=== PATIENT | female | born 1950 | race Caucasian/White ===

== ENCOUNTER 2018-08-08 10:04 | Outpatient (REF) | payer MEDICARE, SELFPAY ==
[2018-08-08 13:54] LABS: ALT 16 U/L (12-78); AST 16 U/L (15-37); Albumin 3.5 g/dL (3.4-5.0); Alkaline Phosphatase 76 U/L (46-116); Anion Gap 7.5 mmol/L (3-11); BUN 20 mg/dL (7-18); Bilirubin, Total 0.4 mg/dL (0.2-1.0); CO2 30.5 mmol/L (21.0-32.0); CREATININE 1.08 mg/dL (0.55-1.02); Calcium 8.9 mg/dL (8.5-10.1); Chloride 104 mmol/L (98-107); Estimated GFR 50.45 (mL/min/1.73m2); Glucose 92 mg/dL (70-100); Potassium 4.4 mmol/L (3.5-5.1); Sodium 142 mmol/L (136-145); Total Protein 7.3 g/dL (6.4-8.2)
== END 2018-08-08 10:24 ==
LOC: NCHCN 10:04
PROVIDERS: PCP Nurse Practitioner Family; Visit Provider Nurse Practitioner Family
DX: R94.4 Abnormal results of kidney function studies (principal)
CPT/HCPCS: 80053

== ENCOUNTER 2019-02-15 08:18 | Outpatient (REF) | payer MEDICARE, SELFPAY ==
[2019-02-15 13:22] LABS: ALT 28 U/L (12-78); AST 19 U/L (15-37); Albumin 3.4 g/dL (3.4-5.0); Alkaline Phosphatase 85 U/L (46-116); Anion Gap 9.3 mmol/L (3-11); BUN 24 mg/dL (7-18); Bilirubin, Total 0.3 mg/dL (0.2-1.0); CO2 26.7 mmol/L (21.0-32.0); CREATININE 1.13 mg/dL (0.55-1.02); Calcium 8.8 mg/dL (8.5-10.1); Chloride 105 mmol/L (98-107); Cholesterol 219 mg/dL (50-200); Estimated GFR 47.88 (mL/min/1.73m2); Glucose 96 mg/dL (70-100); HDL Cholesterol 41 mg/dL (40-60); LDL CHOLESTEROL 151 mg/dL (<100); Potassium 4.6 mmol/L (3.5-5.1); Sodium 141 mmol/L (136-145); Total Protein 7.5 g/dL (6.4-8.2); Triglyceride 124 mg/dL (30-150)
== END 2019-02-15 08:38 ==
LOC: NCHCN 08:18
PROVIDERS: PCP Nurse Practitioner Family; Visit Provider Nurse Practitioner Family
DX: E78.5 Hyperlipidemia, unspecified (principal); I10 Essential (primary) hypertension
CPT/HCPCS: 80053; 80061; 83721

== ENCOUNTER 2019-02-22 09:27 | Outpatient (REF) | payer MEDICARE, SELFPAY ==
[2019-02-22 13:16] LABS: Abs Immature Grans 0.01 k/cumm (0.0-0.09); Absolute Basophil Count 0.02 k/cumm (0.0-0.2); Absolute Eosinophil Count 0.06 k/cumm (0.0-0.7); Absolute Lymphocyte Count 1.76 k/cumm (1.2-3.4); Absolute Monocyte Count 0.36 k/cumm (0.11-0.7); Absolute Neutrophil Count 4.06 k/cumm (1.2-6.7); Basophils % 0.3; HGB 13.3 g/dL (12.0-15.5); Immature Grans % 0.2; Lymphocytes % 28.1; Mean Corp. HGB Concentration 33.3 g/dL (32.0-36.0); Mean Corpuscular Hemoglobin 30.3 pg (27.0-33.0); Mean Corpuscular Volume 91.1 fL (80-95); Mean Platelet Volume 9.8 fL (8.0-11.0); Monocytes % 5.7; Neutrophils % 64.7; Platelet Count 324 x1000/uL (130-400); RBC 4.39 m/cumm (4.00-5.20); RBC Distribution Width 13.8 % (11.7-14.6); White Blood Cell Count 6.27 k/cumm (4.4-10.8)
[2019-02-22 13:34] LABS: Bilirubin Negative (Negative); Blood Trace-lysed (Negative); Clarity Cloudy; Glucose Negative (Negative); Ketones Negative (Negative); Leukocyte Esterase Small (Negative); Nitrite Positive (Negative); Specific Gravity 1.025 (1.005-1.025); Urobilinogen 0.2 EU/dL (Up TO 0.2); pH 5.5 (5-8)
[2019-02-22 13:39] LABS: ALT 31 U/L (12-78); AST 23 U/L (15-37); Albumin 3.7 g/dL (3.4-5.0); Alkaline Phosphatase 83 U/L (46-116); BUN 29 mg/dL (7-18); Bilirubin, Total 0.3 mg/dL (0.2-1.0); CREATININE 1.12 mg/dL (0.55-1.02); Calcium 9.1 mg/dL (8.5-10.1); Chloride 102 mmol/L (98-107); Estimated GFR 48.38 (mL/min/1.73m2); Glucose 107 mg/dL (70-100); Potassium 4.6 mmol/L (3.5-5.1); Sodium 139 mmol/L (136-145); TSH (W/Ref FT4) 1.73 uIU/mL (0.358-3.74)
[2019-02-22 13:44] LABS: COMMENT (LAB VIEW ONLY) 195.78 mg/dL; Microalb ug/mg Crea 5.9 ug/mg Cr
[2019-02-22 13:59] LABS: Bacteria Moderate HPF (Negative); C & S Indicated? Yes; Casts Negative LPF (Negative); Crystals Moderate Amorphous HPF (Negative); Epithelial Cells Rare HPF (Negative); Mucus Negative (Negative); Other Cells Few Renal (Negative); RBC Negative (0-2)
== END 2019-02-22 09:47 ==
LOC: NCHCN 09:27
PROVIDERS: PCP Nurse Practitioner Family; Visit Provider Nurse Practitioner Family
DX: R53.83 Other fatigue (principal); R94.4 Abnormal results of kidney function studies; I10 Essential (primary) hypertension; Z80.3 Family history of malignant neoplasm of breast; F32.9 Major depressive disorder, single episode, unspecified
CPT/HCPCS: 80053; 87077; 81003; 81015; 82043; 82570; 83735; 84443; 85025; 87086; 87186

== ENCOUNTER 2019-02-22 09:54 | Outpatient (CLI) | payer MEDICARE, SELFPAY ==
--- NOTE | 2019-02-22 10:01 | DI.RAD_ITS ---
SYMPTOM/DIAGNOSIS: ABNL WT LOSS, R63.4, SOB, MALAISE PA AND LATERAL CHEST: No priors. The heart is normal in size. The lungs are clear. The mediastinal structures and pleura appear intact. CONCLUSION: Normal chest.
== END 2019-02-22 10:14 ==
PROVIDERS: PCP Nurse Practitioner Family; Visit Provider Nurse Practitioner Family
DX: R63.4 Abnormal weight loss (principal); R06.02 Shortness of breath; R53.81 Other malaise
CPT/HCPCS: 71046

== ENCOUNTER 2019-03-01 19:48 | Outpatient (REF) | payer MEDICARE, SELFPAY ==
[2019-03-01 20:56] LABS: Bilirubin Negative (Negative); Blood Negative (Negative); Clarity Clear; Glucose Negative (Negative); Ketones Negative (Negative); Leukocyte Esterase Trace (Negative); Nitrite Negative (Negative); Urobilinogen 0.2 EU/dL (Up TO 0.2)
[2019-03-01 21:53] LABS: Bacteria Negative HPF (Negative); C & S Indicated? Yes; Casts Negative LPF (Negative); Crystals Negative HPF (Negative); Epithelial Cells Negative HPF (Negative); Mucus Negative (Negative); Other Cells Negative (Negative); RBC Negative (0-2)
== END 2019-03-01 20:08 ==
LOC: NCHCN 19:48
PROVIDERS: PCP Nurse Practitioner Family; Visit Provider Nurse Practitioner Family
DX: R35.0 Frequency of micturition (principal)
CPT/HCPCS: 81003; 81015; 87086; 87186

== ENCOUNTER 2019-03-09 13:43 | Outpatient (REF) | payer MEDICARE, SELFPAY ==
[2019-03-09 19:03] LABS: Anion Gap 8.1 mmol/L (3-11); BUN 14 mg/dL (7-18); CO2 27.9 mmol/L (21.0-32.0); CREATININE 1.14 mg/dL (0.55-1.02); Calcium 9.2 mg/dL (8.5-10.1); Chloride 103 mmol/L (98-107); Estimated GFR 47.26 (mL/min/1.73m2); Glucose 92 mg/dL (70-100); Potassium 4.8 mmol/L (3.5-5.1); Sodium 139 mmol/L (136-145)
== END 2019-03-09 14:03 ==
LOC: NCHCN 13:43
PROVIDERS: PCP Nurse Practitioner Family; Visit Provider Nurse Practitioner Family
DX: R94.4 Abnormal results of kidney function studies (principal)
CPT/HCPCS: 80048

== ENCOUNTER 2019-03-14 00:14 | Outpatient (CLI) | payer MEDICARE, SELFPAY ==
--- NOTE | 2019-03-14 10:30 | MERGE_ITS ---
*[facility]* *[facility]* [address] [place] [address] Date of study: 03/14/2019 Transthoracic Echocardiography M-mode, complete 2D, complete spectral Doppler, and color Doppler *STUDY CONCLUSIONS* Summary: 1. Left ventricle: The cavity size was normal. Systolic function was hyperdynamic. The estimated ejection fraction was 65-70%. Diastolic parameters were normal for age. There was no evidence of elevated ventricular filling pressure by Doppler parameters. 2. Mitral valve: There was moderate regurgitation. 3. Right ventricle: The cavity size was normal. Wall thickness was normal. Systolic function was normal. 4. Atrial septum: No defect or patent foramen ovale was identified. 5. Pulmonary arteries: Pulmonary systolic pressure was in the range of 25mm Hg to 35mm Hg. 6. Inferior vena cava: The vessel was patent and normal in size. The respirophasic diameter changes were in the normal range (greater than or equal to 50%), consistent with normal central venous pressure. *PATIENT PRESENTATION* Height: 152.4cm ((60in) ) S/D Pressure: 139 / 70 Weight: 63kg ((138.7lb) ) BSA: 1.65m^2 Test start time: 10:40 AM. Test stop time: 11:40 AM. PERFORMING Unknown PERFORMING [facility] MRI TECH RT Tee (R)(CT), RUST ORDERING Ramsey Garrett REFERRING Ramsey Garrett *PROCEDURE DATA* Procedure information: The patient was identified by two identifiers. This study was interpreted by [facility]. Pertinent images and digital data are archived for permanent storage and are available for subsequent review. No prior study was available for comparison. Study status: Routine. Transthoracic echocardiography. M-mode, complete 2D, complete spectral Doppler, and color Doppler. A Transthoracic Echocardiogram was performed. Scanning was performed from the parasternal, apical, subcostal, and suprasternal notch acoustic windows. Images were obtained using an [id number] cardiac ultrasound machine. Image quality was adequate. Study completion: The patient tolerated the procedure well. History: PMH: TRICIA R06.02. *CARDIAC ANATOMY* Left ventricle: The cavity size was normal. Systolic function was hyperdynamic. The estimated ejection fraction was 65-70%. The tissue Doppler parameters were abnormal. Diastolic parameters were normal for age. There was no evidence of elevated ventricular filling pressure by Doppler parameters. Aortic valve: Trileaflet. Doppler: There was no stenosis. There was no regurgitation. VTI ratio of LVOT to aortic valve: 0.81. Valve area (VTI): 2cm^2. Indexed valve area (VTI): 1.2cm^2/m^2. Peak velocity ratio of LVOT to aortic valve: 0.78. Valve area (Vmax): 1.9cm^2. Indexed valve area (Vmax): 1.2cm^2/m^2. Mean velocity ratio of LVOT to aortic valve: 0.69. Valve area (Vmean): 1.7cm^2. Indexed valve area (Vmean): 1cm^2/m^2. Mean gradient (S): 4.4mm Hg. Peak gradient (S): 8.6mm Hg. Aorta: Aortic root: The aortic root was normal in size. Mitral valve: Doppler: There was no evidence for stenosis. There was moderate regurgitation. Valve area by pressure half-time: 4cm^2. Indexed valve area by pressure half-time: 2.4cm^2/m^2. Peak gradient (D): 2.7mm Hg. Left atrium: The atrium was normal in size. Atrial septum: No defect or patent foramen ovale was identified. Right ventricle: The cavity size was normal. Wall thickness was normal. Systolic function was normal. Pulmonic valve: Doppler: There was no evidence for stenosis. There was no significant regurgitation. Peak gradient (S): 2.4mm Hg. Tricuspid valve: Doppler: There was mild regurgitation. Pulmonary artery: Poorly visualized. Pulmonary systolic pressure was in the range of 25mm Hg to 35mm Hg. Right atrium: The atrium was normal in size. Pericardium: There was no pericardial effusion. Systemic veins: Inferior vena cava: Well visualized. The vessel was patent and normal in size. The respirophasic diameter changes were in the normal range (greater than or equal to 50%), consistent with normal central venous pressure. Baseline ECG: Bradycardia. Measurements Left ventricle Value Reference LV ID, ED, PLAX 4.8 cm 3.5 - 6.0 LV ID, ES, PLAX 3.2 cm 2.1 - 4.0 LV PW thickness, ED, PLAX 0.7 cm LV end-diastolic volume, 1-p A2C 60 ml LV ejection fraction, 1-p A2C 59 % LV end-diastolic volume, 1-p A4C 57 ml LV ejection fraction, 1-p A4C 72 % LV e', lateral 0.085 m/sec LV E/e', lateral 10 LV e', medial 0.077 m/sec LV E/e', medial 11 LV e', average 0.081 m/sec LV E/e', average 10 Ventricular septum Value Reference IVS thickness, ED, PLAX 0.7 cm LVOT Value Reference LVOT ID, A-P 1.8 cm LVOT area 2.5 cm^2 LVOT peak velocity, S 1.15 m/sec LVOT mean velocity, S 0.67 m/sec LVOT VTI, S 26.9 cm LVOT peak gradient, S 5.3 mm Hg LVOT mean gradient, S 2.2 mm Hg Stroke volume (SV), LVOT DP 66 ml Stroke index (SV/bsa), LVOT DP 40 ml/m^2 Aortic valve Value Reference Aortic valve peak velocity, S 1.5 m/sec Aortic valve mean velocity, S 0.98 m/sec Aortic valve VTI, S 33.0 cm Aortic mean gradient, S 4.4 mm Hg Aortic peak gradient, S 8.6 mm Hg VTI ratio, LVOT/AV 0.81 Aortic valve area, VTI 2 cm^2 Velocity ratio, peak, LVOT/AV 0.78 Aortic valve area, peak velocity 1.9 cm^2 Velocity ratio, mean, LVOT/AV 0.69 Aortic valve area, mean velocity 1.7 cm^2 Aortic valve area/bsa, mean velocity 1 cm^2/m^2 Aorta Value Reference Aortic root ID, ED 2.7 cm Left atrium Value Reference LA ID, A-P, ES 3.2 cm LA ID/bsa, A-P 1.9 cm/m^2 <=2.2 LA area, ES, A4C 15.5 cm^2 8.8 - 23.4 LA area, ES, A2C 14 cm^2 LA volume/bsa, ES, 1-p A4C 26 ml/m^2 LA volume, ES, 2-p 37 ml LA volume/bsa, ES, 2-p 22 ml/m^2 LA/aortic root ratio 1.17 Mitral valve Value Reference Mitral E-wave peak velocity 0.83 m/sec Mitral A-wave peak velocity 1.01 m/sec Mitral deceleration time 189 ms 150 - 230 Mitral pressure half-time 55 ms Mitral peak gradient, D 2.7 mm Hg Mitral E/A ratio, peak 0.82 Mitral valve area, PHT, DP 4 cm^2 Tricuspid valve Value Reference Tricuspid regurg peak velocity 2.7 m/sec Tricuspid peak RV-RA gradient 28.9 mm Hg Right atrium Value Reference RA area, ES, A4C 13.2 cm^2 8.3 - 19.5 Pulmonic valve Value Reference Pulmonic peak gradient, S 2.4 mm Hg Legend: (L) and (H) marichuy values outside specified reference range. I have personally reviewed the images and have reviewed and edited the reported findings. Electronically signed by Lai Rawls MD 03/14/2019 13:59
== END 2019-03-14 00:34 ==
PROVIDERS: PCP Nurse Practitioner Family; Visit Provider Nurse Practitioner Family
DX: R06.02 Shortness of breath (principal); I34.0 Nonrheumatic mitral (valve) insufficiency; I10 Essential (primary) hypertension; E78.5 Hyperlipidemia, unspecified
CPT/HCPCS: 93306

== ENCOUNTER 2019-04-21 09:30 | Outpatient (REF) | payer MEDICARE, SELFPAY ==
[2019-04-21 19:09] LABS: Anion Gap 10.3 mmol/L (3-11); BUN 13 mg/dL (7-18); CO2 25.7 mmol/L (21.0-32.0); CREATININE 1.15 mg/dL (0.55-1.02); Calcium 9.2 mg/dL (8.5-10.1); Chloride 104 mmol/L (98-107); Estimated GFR 46.79 (mL/min/1.73m2); Glucose 75 mg/dL (70-100); Potassium 4.6 mmol/L (3.5-5.1); Sodium 140 mmol/L (136-145)
== END 2019-04-21 09:50 ==
LOC: NCHCN 09:30
PROVIDERS: PCP Nurse Practitioner Family; Visit Provider Nurse Practitioner Family
DX: R94.4 Abnormal results of kidney function studies (principal)
CPT/HCPCS: 80048

== ENCOUNTER 2019-05-18 00:25 | Outpatient (CLI) | payer MEDICARE, SELFPAY ==
--- NOTE | 2019-05-18 15:15 | DI.MAMMO_ITS ---
SYMPTOM/DIAGNOSIS: FAMILY H/O BREAST CANCER Z80.3 BILATERAL SCREENING MAMMOGRAM: Mammograms were interpreted according to the usual protocol including computer analysis with CAD system, tomosynthesis and C view imaging. Comparison is made with exams from 2012 through 2018. The breasts are composed of scattered fibroglandular densities, breast density category B. There is a question of a small mass vs overlying fibroglandular tissue in the central right breast. Spot compression views and ultrasound are requested for further evaluation. No change is seen in the left breast. No suspicious calcifications in either breast. IMPRESSION: Left breast Category 1, negative. Right breast Category 0. Breast density category B. [facility] ASSESSMENT OF FINDINGS: Incomplete: Needs additional imaging evaluation. Category 0. Patient will receive a letter notifying them of these results. BI-RADS category B. There are scattered areas of fibroglandular density.
--- NOTE | 2019-05-18 16:00 | DI.DEXA_ITS ---
SYMPTOM/DIAGNOSIS: OSTEOPOROSIS M81.0 DEXA SCAN WITH ANURADHA There are no prior comparison exams. The ANURADHA image shows no evidence of compression fractures. The bone mineral density measurements of the lumbar spine correspond to a total T-score of -2.9 consistent with osteoporosis. Bone mineral density measurements of the left hip correspond to a total T-score of -2.0 and femoral neck T-score of -2.5. also consistent with osteoporosis. The right forearm bone mineral density measurements show a T-score in the distal third of -1.6, in the osteopenic range. IMPRESSION: Osteopenia of the right forearm. Osteoporosis of the left hip and lumbar spine.
== END 2019-05-18 00:45 ==
PROVIDERS: PCP Nurse Practitioner Family; Visit Provider Nurse Practitioner Family
DX: M81.0 Age-related osteoporosis without current pathological fracture (principal); M85.831 Other specified disorders of bone density and structure, right forearm; Z12.31 Encounter for screening mammogram for malignant neoplasm of breast; R92.8 Other abnormal and inconclusive findings on diagnostic imaging of breast; Z80.3 Family history of malignant neoplasm of breast
CPT/HCPCS: 77063; 77067; 77080

== ENCOUNTER 2019-05-30 00:53 | Outpatient (CLI) | payer MEDICARE, SELFPAY ==
--- NOTE | 2019-05-30 13:00 | DI.COMBO_ITS ---
SYMPTOMS/DIAGNOSIS: F/U ABNORMAL MAMMO, ? SMALL MASS VERSUS OVERLYING FIBROGLANDULAR TISSUE IN CENTRAL RIGHT BREAST ADDITIONAL VIEWS OF THE RIGHT BREAST AND RIGHT BREAST ULTRASOUND: Additional images are interpreted according to the usual protocol including tomosynthesis and 2D imaging. CC and MLO spot compression views with tomography were performed for a question of mass versus overlying density. No persistent abnormality is seen on the additional views performed. Right breast ultrasound shows an island of dense tissue. No mass or cyst is seen. IMPRESSION: Category 1, negative mammogram. Yearly screening mammography is recommended. [facility] ASSESSMENT OF FINDINGS: Negative. Category 1. Patient will receive a letter notifying them of these results. BI-RADS category B. There are scattered areas of fibroglandular density.
== END 2019-05-30 01:13 ==
PROVIDERS: PCP Nurse Practitioner Family; Visit Provider Nurse Practitioner Family
DX: Z12.31 Encounter for screening mammogram for malignant neoplasm of breast (principal); R92.8 Other abnormal and inconclusive findings on diagnostic imaging of breast; N64.59 Other signs and symptoms in breast
CPT/HCPCS: 76642; 77063; 77067

== ENCOUNTER → 2019-06-06 08:34 | Outpatient (BNVA) | payer MEDICARE, SELFPAY | PROVIDERS: PCP Nurse Practitioner Family; Referring Provider Nurse Practitioner Family; Visit Provider Nurse Practitioner Gerontology | DX: N32.81 Overactive bladder (principal); N39.41 Urge incontinence; I10 Essential (primary) hypertension | CPT/HCPCS: 99204; 99215 ==

== ENCOUNTER 2019-06-16 08:00 | Outpatient (CLI) | payer MEDICARE, SELFPAY ==
--- NOTE | 2019-06-16 11:00 | DI.US_ITS ---
SYMPTOM/DIAGNOSIS: UTI W/O HEMATURIA N39.0 RENAL ULTRASOUND: Routine examination was performed. The right kidney measures 10 cm long. No renal mass, calculus or obstruction is seen. There is normal blood flow to the right kidney. The left kidney measures 9.1 cm long. No renal mass, calculus or obstruction is seen. There is mild prominence of the left renal pelvis. There is normal blood flow to the left kidney. The pre-void urinary bladder volume is 131 cc. Both ureteral jets were visualized. No bladder wall thickening is seen. No intraluminal mass present. Post void urinary bladder volume was less than 10 cc. IMPRESSION: Unremarkable renal ultrasound.
== END 2019-06-16 08:20 ==
PROVIDERS: PCP Nurse Practitioner Family; Visit Provider Internal Medicine Nephrology
DX: N39.0 Urinary tract infection, site not specified (principal)
CPT/HCPCS: 76770

== ENCOUNTER 2020-04-18 10:36 | Outpatient (REF) | payer MEDICARE, SELFPAY ==
[2020-04-18 18:45] LABS: HCT 40.6 % (36.0-46.0); HGB 13.4 g/dL (12.0-15.5); Mean Corpuscular Hemoglobin 30.6 pg (27.0-33.0); Mean Corpuscular Volume 92.7 fL (80-95); Mean Platelet Volume 10.2 fL (8.0-11.0); Platelet Count 266 x1000/uL (130-400); RBC 4.38 m/cumm (4.00-5.20); RBC Distribution Width 13.4 % (11.7-14.6); White Blood Cell Count 6.04 k/cumm (4.4-10.8)
[2020-04-18 19:17] LABS: BUN 23 mg/dL (7-18); CREATININE 1.23 mg/dL (0.55-1.02); Calcium 9.2 mg/dL (8.5-10.1); Calculated LDL 187 mg/dL (<100); Chloride 104 mmol/L (98-107); Cholesterol 263 mg/dL (<200); Estimated GFR 43.17 (mL/min/1.73m2); HDL Cholesterol 56 mg/dL (40-60); Potassium 4.4 mmol/L (3.5-5.1); Sodium 140 mmol/L (136-145); Triglyceride 102 mg/dL (<150)
[2020-04-18 19:26] LABS: Glucose 94 mg/dL (74-106)
[2020-04-18 19:37] LABS: Vitamin D 25 Total 58.8 ng/ml (30-100)
== END 2020-04-18 10:56 ==
LOC: NCHCN 10:36
PROVIDERS: PCP Nurse Practitioner Family; Visit Provider Nurse Practitioner Family
DX: I10 Essential (primary) hypertension (principal); N18.3 Chronic kidney disease, stage 3 (moderate); M81.0 Age-related osteoporosis without current pathological fracture; Z13.6 Encounter for screening for cardiovascular disorders; E55.9 Vitamin D deficiency, unspecified
CPT/HCPCS: 80048; 80061; 82306; 85027

== ENCOUNTER 2020-04-30 08:18 | Outpatient (REF) | payer MEDICARE, SELFPAY ==
[2020-04-30 18:30] LABS: Anion Gap 9.2 mmol/L (3-11); BUN 22 mg/dL (7-18); CO2 25.8 mmol/L (21.0-32.0); CREATININE 1.15 mg/dL (0.55-1.02); Calcium 9.1 mg/dL (8.5-10.1); Chloride 103 mmol/L (98-107); Estimated GFR 46.65 (mL/min/1.73m2); Glucose 95 mg/dL (74-106); Potassium 4.3 mmol/L (3.5-5.1); Sodium 138 mmol/L (136-145)
[2020-04-30 18:41] LABS: Bilirubin Negative (Negative); Blood Negative (Negative); Clarity Clear (Clear); Glucose Negative (Negative); Ketones Negative (Negative); Leukocyte Esterase Negative (Negative); Nitrite Negative (Negative); Specific Gravity <= 1.005 (1.005-1.025); Urobilinogen 0.2 EU/dL (Up TO 0.2); pH 5.5 (5-8)
== END 2020-04-30 08:38 ==
LOC: NCHCN 08:18
PROVIDERS: PCP Nurse Practitioner Family; Visit Provider Nurse Practitioner Family
DX: N18.3 Chronic kidney disease, stage 3 (moderate) (principal)
CPT/HCPCS: 80048; 81003

== ENCOUNTER 2020-07-18 08:49 | Outpatient (REF) | payer MEDICARE, SELFPAY ==
[2020-07-18 18:59] LABS: Anion Gap 6.1 mmol/L (3-11); BUN 22 mg/dL (7-18); CO2 28.9 mmol/L (21.0-32.0); CREATININE 1.16 mg/dL (0.55-1.02); Calcium 9.3 mg/dL (8.5-10.1); Calculated LDL 185 mg/dL (<100); Chloride 105 mmol/L (98-107); Cholesterol 268 mg/dL (<200); Estimated GFR 46.19 (mL/min/1.73m2); Glucose 95 mg/dL (74-106); HDL Cholesterol 57 mg/dL (40-60); Potassium 4.4 mmol/L (3.5-5.1); Sodium 140 mmol/L (136-145); Triglyceride 133 mg/dL (<150)
== END 2020-07-18 09:09 ==
LOC: NCHCN 08:49
PROVIDERS: PCP Nurse Practitioner Family; Visit Provider Nurse Practitioner Family
DX: E78.5 Hyperlipidemia, unspecified (principal); N18.3 Chronic kidney disease, stage 3 (moderate)
CPT/HCPCS: 80048; 80061

== ENCOUNTER 2020-09-16 10:35 | Outpatient (REF) | payer MEDICARE, SELFPAY ==
[2020-09-16 20:36] LABS: Anion Gap 8.6 mmol/L (3-11); BUN 24 mg/dL (7-18); CO2 28.4 mmol/L (21.0-32.0); Calcium 9.2 mg/dL (8.5-10.1); Calculated LDL 165 mg/dL (<100); Chloride 105 mmol/L (98-107); Cholesterol 252 mg/dL (<200); Estimated GFR 40.49 (mL/min/1.73m2); Glucose 95 mg/dL (74-106); HDL Cholesterol 58 mg/dL (40-60); Potassium 4.6 mmol/L (3.5-5.1); Sodium 142 mmol/L (136-145); Triglyceride 146 mg/dL (<150)
== END 2020-09-16 10:55 ==
LOC: NCHCN 10:35
PROVIDERS: PCP Nurse Practitioner Family; Visit Provider Nurse Practitioner Family
DX: I10 Essential (primary) hypertension (principal); E78.5 Hyperlipidemia, unspecified
CPT/HCPCS: 80048; 80061

== ENCOUNTER 2020-09-28 19:57 | Emergency (ER) | payer OTHER, MEDICARE, SELFPAY ==
[2020-09-28] VITALS (16 sets, daily range): BP systolic 133–150; BP diastolic 55–63; PULSE 75–99; TEMP 36.7; O2SAT 94–98
--- NOTE | 2020-09-28 19:45 | RT.EKG_ITS ---
APPROVED REPORT Exam: Resting ECG Patient Location: E HR:89 bpm ECG Measurements Heart Rate 89 AXIS WI 159 P 69 QRSd 78 QRS 86 QT 357 T 63 QTc 435 Conclusion Sinus rhythm...normal P axis, V-rate 60- [address] depression, lateral leads...ST <-0.07mV, I aVL V5 V6 Significant artifact in precordial lateral leads. No STEMI.
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
[2020-09-28 20:27] LABS: Abs Immature Grans 0.07 10^3/uL (0.0-0.06); Absolute Eosinophil Count 0.26 10^3/uL (0.0-0.7); Absolute Neutrophil Count 9.78 10^3/uL (1.2-6.7); Basophils % 0.4; Eosinophils % 1.9; HCT 36.3 % (36.0-46.0); HGB 11.8 g/dL (11.2-15.7); Immature Grans % 0.5; Lymphocytes % 19.6; MCH 30.2 pg (27.0-33.0); MCHC 32.5 % (32.0-36.0); MCV 92.8 fL (80-95); MPV 9.8 fL (8.0-11.0); Monocytes % 6.5; Neutrophils % 71.1; Nucleated RBC 0 %; Platelet Count 240 10^3/uL (130-400); RBC 3.91 10^6/uL (3.93-5.22); RDW 13.8 % (11.7-14.6); WBC 13.76 10^3/uL (4.4-10.8)
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
[2020-09-28 20:38] LABS: ALT 23 U/L (14-59); AST 23 U/L (15-37); Absolute Basophil Count 0.06 10^3/uL (0.0-0.2); Absolute Monocyte Count 0.89 10^3/uL (0.1-0.8); Albumin 3.6 g/dL (3.4-5.0); Alkaline Phosphatase 73 U/L (46-116); Anion Gap 12.6 mmol/L (3-11); BUN 20 mg/dL (7-18); Bilirubin, Total 0.3 mg/dL (0.2-1.0); CO2 21.4 mmol/L (21.0-32.0); CREATININE 1.38 mg/dL (0.55-1.02); Calcium 8.6 mg/dL (8.5-10.1); Chloride 103 mmol/L (98-107); Glucose 140 mg/dL (74-106); Magnesium 1.7 mg/dL (1.8-2.4); Potassium 3.9 mmol/L (3.5-5.1); Sodium 137 mmol/L (136-145); Total Protein 7.9 g/dL (6.4-8.2); Troponin I < 0.05 ng/mL (<0.06)
[2020-09-28] MEDS: ACETAMINOPHEN 1,000 MG/100 ML BTL 400 MG IVPB (20:40)
[2020-09-28 20:53] LABS: PTT Activated 21.7 sec (21.0-27.5); Prothrombin Time 9.8 sec (9.3-11.0)
[2020-09-28] MEDS: Normal Saline 1,000 ML 150 ML IV (20:53)
[2020-09-28] MEDS: Ondansetron 4 MG/2 ML VIAL IVP (20:55)
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
[2020-09-28] MEDS: Normal Saline - Diluent 50 ML VIAL IV (21:22)
[2020-09-28] MEDS: Omnipaque 350 MG/ML 100 ML BTL IJ (21:22)
== END 2020-09-28 23:15 | disposition home or self-care (01) ==
LOC: ER 21:58
PROVIDERS: Emergency Provider Nurse Practitioner Acute Care; PCP Nurse Practitioner Family
DX: R07.81 Pleurodynia (principal); M54.2 Cervicalgia; S80.811A Abrasion, right lower leg, initial encounter; S80.812A Abrasion, left lower leg, initial encounter; R10.30 Lower abdominal pain, unspecified; V43.52XA Car driver injured in collision with other type car in traffic accident, initial encounter; W22.11XA Striking against or struck by driver side automobile airbag, initial encounter; I10 Essential (primary) hypertension
CPT/HCPCS: 36415; 74177; 80053; 86850; 86900; 86901; 93005; 96361; 96374; 96375; 99285; 70450; 71260; 72125; 83735; 84484; 85025; 85610; 85730; 93010; J0131; J2405; J3490

== ENCOUNTER 2020-10-03 13:39 | Outpatient (REF) | payer MEDICARE, SELFPAY ==
[2020-10-03 18:31] LABS: HCT 34.3 % (36.0-46.0); HGB 11.1 g/dL (11.2-15.7); MCH 30.2 pg (27.0-33.0); MCHC 32.4 % (32.0-36.0); MCV 93.5 fL (80-95); MPV 10.4 fL (8.0-11.0); Platelet Count 278 10^3/uL (130-400); RBC 3.67 10^6/uL (3.93-5.22); RDW 14.1 % (11.7-14.6); RDW-SD 48.1 fL; WBC 7.15 10^3/uL (4.4-10.8)
[2020-10-03 19:21] LABS: Anion Gap 9.6 mmol/L (3-11); BUN 29 mg/dL (7-18); CO2 25.4 mmol/L (21.0-32.0); CREATININE 1.35 mg/dL (0.55-1.02); Calcium 9.3 mg/dL (8.5-10.1); Chloride 102 mmol/L (98-107); Estimated GFR 38.77 (mL/min/1.73m2); Glucose 104 mg/dL (74-106); Potassium 5.4 mmol/L (3.5-5.1); Sodium 137 mmol/L (136-145)
== END 2020-10-03 13:59 ==
LOC: NCHCN 13:39
PROVIDERS: PCP Nurse Practitioner Family; Visit Provider Nurse Practitioner Family
DX: I10 Essential (primary) hypertension (principal); N18.30 Chronic kidney disease, stage 3 unspecified
CPT/HCPCS: 80048; 85027

== ENCOUNTER 2020-10-21 13:49 | Outpatient (REF) | payer MEDICARE, SELFPAY ==
[2020-10-21 14:45] LABS: HCT 35.3 % (36.0-46.0); HGB 11.1 g/dL (11.2-15.7); MCH 30.2 pg (27.0-33.0); MCHC 31.4 % (32.0-36.0); MCV 96.2 fL (80-95); Platelet Count 303 10^3/uL (130-400); RBC 3.67 10^6/uL (3.93-5.22); RDW 14.7 % (11.7-14.6); RDW-SD 51.9 fL
[2020-10-21 15:37] LABS: Anion Gap 6.9 mmol/L (3-11); BUN 30 mg/dL (7-18); CO2 27.1 mmol/L (21.0-32.0); CREATININE 1.33 mg/dL (0.55-1.02); Calcium 8.7 mg/dL (8.5-10.1); Chloride 105 mmol/L (98-107); Estimated GFR 39.44 (mL/min/1.73m2); Glucose 93 mg/dL (74-106); Potassium 4.5 mmol/L (3.5-5.1); Sodium 139 mmol/L (136-145)
== END 2020-10-21 14:09 ==
LOC: NCHCN 13:49
PROVIDERS: PCP Nurse Practitioner Family; Visit Provider Nurse Practitioner Family
DX: K22.70 Barrett's esophagus without dysplasia (principal)
CPT/HCPCS: 80048; 85027

== ENCOUNTER 2021-02-20 19:20 | Outpatient (REF) | payer MEDICARE, SELFPAY ==
[2021-02-20 14:04] LABS: HCT 39.9 % (36.0-46.0); MCH 29.7 pg (27.0-33.0); MCHC 32.6 % (32.0-36.0); MCV 91.3 fL (80-95); MPV 10.2 fL (8.0-11.0); Platelet Count 270 10^3/uL (130-400); RBC 4.37 10^6/uL (3.93-5.22); RDW 13.9 % (11.7-14.6); RDW-SD 46.8 fL; WBC 5.41 10^3/uL (4.4-10.8)
[2021-02-20 14:20] LABS: Iron 76 ug/dL (50-170); Total Iron Binding Capacity 394 ug/dL (250-450); Transferrin Sat 19 % (15-50)
[2021-02-20 14:29] LABS: Anion Gap 8.7 mmol/L (3-11); BUN 22 mg/dL (7-18); CO2 29.3 mmol/L (21.0-32.0); CREATININE 1.3 mg/dL (0.55-1.02); Calcium 9.1 mg/dL (8.5-10.1); Calculated LDL 179 mg/dL (<100); Chloride 105 mmol/L (98-107); Cholesterol 259 mg/dL (<200); Estimated GFR 40.49 (mL/min/1.73m2); Ferritin 79 ng/mL (8-252); Glucose 95 mg/dL (74-106); HDL Cholesterol 60 mg/dL (40-60); Potassium 4.8 mmol/L (3.5-5.1); Sodium 143 mmol/L (136-145); Triglyceride 104 mg/dL (<150)
[2021-02-20 14:41] LABS: Vitamin D 25 Total 71.6 ng/mL (30-100)
== END 2021-02-20 19:21 | disposition home or self-care (01) ==
LOC: NCHCN 19:20
PROVIDERS: PCP Nurse Practitioner Family; Visit Provider Nurse Practitioner Family
DX: N18.30 Chronic kidney disease, stage 3 unspecified (principal); I10 Essential (primary) hypertension; E78.5 Hyperlipidemia, unspecified; D50.9 Iron deficiency anemia, unspecified
CPT/HCPCS: 80048; 80061; 82306; 85027; 82728; 83540; 83550

== ENCOUNTER 2021-04-24 03:11 | Outpatient (CLI) | payer MEDICARE, SELFPAY ==
--- NOTE | 2021-04-24 | DI.MAMMO_ITS ---
Exam(s) MAMMO SCREENING EXAM: MAMMO SCREENING CLINICAL HISTORY: SCREENING, Z12.39. TECHNIQUE: Bilateral full field digital CC and MLO mammographic images were obtained with 3D tomosyn thesis and utilizing computer aided detection (CAD). COMPARISON: Prior mammograms dating back to 2011, the most recent being April 2019.. There is apparently a very strong family history breast malignancy here FINDINGS: There has been no significant change in the appearance and distribution of the fibroglandular tissue. There are no new spiculated masses nor malignant appearing microcalcification groups. There is no significant architectural distortion nor skin thickening-retraction. IMPRESSION: No radiographic evidence of malignancy. BI-RADS Category 1 - Negative Breast Density - Category B - Scattered areas of fibroglandular density Breast density Category C or D implies that the patient has dense breast tissue. Dense breast tissue can make it harder to find cancer on a mammogram. Dense breast tissue is also associated with an incr eased risk of breast cancer. This information about the result of the mammogram report was provided to the patient to raise their awareness. Use this report when you speak with the patient about their risks for breast cancer, which includes their family history. At that time, you may recommend additional screening tests (Ultrasoun d or MRI) as these tests may add significant information. A negative radiographic report should not delay biopsy if a dominant or clinically suspicious mass is present. Up to ten percent of cancers are not identified on mammography. A negative report may reinforce clinical impression. Adenosis and dense breasts may obscure an underlying neoplasm. False positive reports average 6 to 10%. Patient will receive a letter notifying them of these results.
== END 2021-04-24 03:31 ==
PROVIDERS: PCP Nurse Practitioner Family; Visit Provider Physician Assistant
DX: Z12.31 Encounter for screening mammogram for malignant neoplasm of breast (principal); R92.8 Other abnormal and inconclusive findings on diagnostic imaging of breast
CPT/HCPCS: 77063; 77067

== ENCOUNTER 2021-08-18 09:15 | Outpatient (REF) | payer MEDICARE, SELFPAY ==
[2021-08-18 15:19] LABS: Anion Gap 9.6 mmol/L (3-11); BUN 28 mg/dL (7-18); CO2 28.4 mmol/L (21.0-32.0); CREATININE 1.3 mg/dL (0.55-1.02); Calcium 9.5 mg/dL (8.5-10.1); Calculated LDL 179 mg/dL (<100); Chloride 104 mmol/L (98-107); Cholesterol 264 mg/dL (<200); Estimated GFR 40.38 (mL/min/1.73m2); Glucose 100 mg/dL (74-106); HDL Cholesterol 52 mg/dL (40-60); Potassium 4.6 mmol/L (3.5-5.1); Sodium 142 mmol/L (136-145); Triglyceride 166 mg/dL (<150)
== END 2021-08-18 09:16 | disposition home or self-care (01) ==
LOC: NCHCN 09:15
PROVIDERS: PCP Nurse Practitioner Family; Visit Provider Physician Assistant
DX: I10 Essential (primary) hypertension (principal); E78.5 Hyperlipidemia, unspecified
CPT/HCPCS: 80048; 80061

== ENCOUNTER 2022-03-03 09:14 | Outpatient (REF) | payer MEDICARE, SELFPAY ==
[2022-03-03 17:36] LABS: MCH 29.9 pg (27.0-33.0); MCHC 31.8 % (32.0-36.0); MCV 94 fL (80-95); Platelet Count 242 10^3/uL (130-400); RBC 4.69 10^6/uL (3.93-5.22); RDW 14.1 % (11.7-14.6); WBC 5.75 10^3/uL (4.4-10.8)
[2022-03-03 20:02] LABS: Anion Gap 10.2 mmol/L (3-11); BUN 33 mg/dL (7-18); CO2 26.8 mmol/L (21.0-32.0); CREATININE 1.3 mg/dL (0.55-1.02); Calculated LDL 195 mg/dL (<100); Chloride 106 mmol/L (98-107); Cholesterol 282 mg/dL (<200); Estimated GFR 40.26 (mL/min/1.73m2); Glucose 107 mg/dL (74-106); HDL Cholesterol 61 mg/dL (40-60); Potassium 4.5 mmol/L (3.5-5.1); Sodium 143 mmol/L (136-145); Triglyceride 134 mg/dL (<150)
[2022-03-05 11:53] LABS: Hepatitis C Ab w Rflx HCV PCR Negative (Negative)
== END 2022-03-03 09:15 | disposition home or self-care (01) ==
LOC: NCHCN 09:14
PROVIDERS: PCP Nurse Practitioner Family; Visit Provider Physician Assistant
DX: I10 Essential (primary) hypertension (principal); Z11.59 Encounter for screening for other viral diseases; E78.5 Hyperlipidemia, unspecified; K22.70 Barrett's esophagus without dysplasia
CPT/HCPCS: 80048; 80061; 85027; 86803

== ENCOUNTER 2022-09-28 09:29 | Outpatient (REF) | payer MEDICARE, SELFPAY ==
[2022-09-28 15:22] LABS: Calculated LDL 147 mg/dL (<100); Cholesterol 236 mg/dL (<200); HDL Cholesterol 54 mg/dL (40-60); Triglyceride 176 mg/dL (<150)
== END 2022-09-28 09:30 | disposition home or self-care (01) ==
LOC: NCHCN 09:29
PROVIDERS: Visit Provider Physician Assistant
DX: E78.5 Hyperlipidemia, unspecified (principal)
CPT/HCPCS: 80061

== ENCOUNTER 2022-09-29 10:09 | Outpatient (CLI) | payer MEDICARE, SELFPAY ==
[2022-09-29 11:17] LABS: BUN 32 mg/dL (7-18); CREATININE 1.3 mg/dL (0.55-1.02); Calcium 9.4 mg/dL (8.5-10.1); Chloride 101 mmol/L (98-107); Estimated GFR 43.69 (mL/min/1.73m2); Glucose 96 mg/dL (74-106); Potassium 4.8 mmol/L (3.5-5.1); Sodium 139 mmol/L (136-145)
== END 2022-09-29 10:10 | disposition home or self-care (01) ==
LOC: LBO 10:11
PROVIDERS: Visit Provider Internal Medicine Gastroenterology
DX: R74.9 Abnormal serum enzyme level, unspecified (principal)
CPT/HCPCS: 36415; 80048

== ENCOUNTER 2023-03-29 01:45 | Outpatient (CLI) | payer MEDICARE, SELFPAY ==
--- NOTE | 2023-03-29 | DI.MRI_ITS ---
Exam(s) MR CERVICAL SPINE WO EXAM: MR CERVICAL SPINE WO CLINICAL HISTORY: LT NECK PAIN,M54.2 TECHNIQUE: Multiplanar multisequence MRI of the cervical spine was performed without intravenous con trast. COMPARISON: MR MRI - CERVICAL SPINE WO CONT from 05/25/2014 FINDINGS: BONES: Vertebral body heights are maintained. There is disc space narrowing at C4-C5. Alignment is no rmal. Degenerative endplate signal changes are seen at C4-C5. CERVICAL CORD: Craniovertebral junction is unremarkable. The cervical cord is normal size and signal intensity. SOFT TISSUES: Unremarkable. C2-3: No disc herniation or bulge is identified. No significant central spinal canal or neural forami nal stenosis. C3-4: There is prominence of the osteophyte disc complex effacing the anterior subarachnoid space and flattening the anterior spinal cord. The AP diameter of the central spinal canal is 8.1 cm. There is no significant right neural foraminal stenosis. There is mild left neural foraminal stenosis. C4-5: There is prominence of the osteophyte disc complex. It does efface the anterior subarachnoid s pace and flatten the anterior spinal cord. There is normal signal in the spinal cord. The AP diamet er of the central spinal canal is 8 mm. There is no significant right neural foraminal stenosis. Th ere is moderate left neural foraminal stenosis. C5-6: No disc herniation or bulge is identified. No significant central spinal canal or neural forami nal stenosis C6-7: No disc herniation or bulge is identified. No significant central spinal canal or neural forami nal stenosis C7-T1: No disc herniation or bulge is identified. No significant central spinal canal or neural roxanne inal stenosis IMPRESSION: 1. Degenerative changes at C4-C5 mildly narrowing the central spinal canal and causing moderate left neural foraminal stenosis. 2. Degenerative changes at C3-C4 causing mild narrowing of the central spinal canal and mild left arpit ral foraminal stenosis. 3. There is normal signal in the spinal cord. DATA REPOSITORY:
== END 2023-03-29 02:05 ==
PROVIDERS: Visit Provider Physician Assistant
DX: M48.02 Spinal stenosis, cervical region (principal); M54.2 Cervicalgia
CPT/HCPCS: 72141

== ENCOUNTER 2023-04-30 00:39 | Outpatient (CLI) | payer MEDICARE, SELFPAY ==
--- NOTE | 2023-04-30 10:50 | DI.DEXA_ITS ---
Exam(s) XR DEXA BONE DENSITY W/WO ANURADHA EXAM: XR DEXA BONE DENSITY W/WO ANURADHA CLINICAL HISTORY: OSTEOPOROSIS M81.0 TECHNIQUE: HoloPodio Horizon C densitometer analysis of left hip, lumbar spine and left forearm. Lat eral survey image of the thoracic and lumbar spine. COMPARISON: DX XR DEXA BONE DENSITY W/WO ANURADHA from 05/18/2019 FINDINGS: Lateral view of the thoracic and lumbar spine shows no evidence of compression fractures. There is a ccentuation of the thoracic kyphosis which appears be secondary to degenerative disc changes. Bone mineral density measurements of the lumbar spine correspond to a total T-score of -2.9, in the osteoporotic range. This is unchanged from the prior exam. Bone mineral density measurements of the left hip correspond to a total T-score of -2.1. The femora l neck T-score is -2.7, in the osteoporotic range. This is not significantly changed from the prior exam.. Theleft forearm bone mineral density measurements correspond to a T-score of the distal 3rd of -1.6, in the osteopenic range. The right forearm was analyzed on the previous exam was also showed a T-sc ore in the distal 3rd of -1.6.. IMPRESSION: Stable osteoporosis of the spine and hip. Stable osteopenia of the forearm.
--- NOTE | 2023-04-30 10:58 | DI.MAMMO_ITS ---
Exam(s) MAMMO SCREENING EXAM: MAMMO SCREENING CLINICAL HISTORY: SCREENING MAMMO FOR BREAST CANCER Z12.39 TECHNIQUE: Mammograms were interpreted according to the usual protocol including computer analysis w [employer] CAD system, tomosynthesis and C-view imaging. COMPARISON: 2012 through 2020 FINDINGS: The breasts are composed of scattered fibroglandular densities, Breast Density category B. No suspicious masses or suspicious microcalcifications are seen. No skin thickening or abnormal axillary lymph nodes are seen. There has been no significant change from prior exams. IMPRESSION: BI-RADS Category 1, Negative mammogram Yearly screening mammography is recommended. Breast Density - Category B, scattered fibroglandular densities. A negative radiographic report should not delay biopsy if a dominant or clinically suspicious mass is present. Up to ten percent of cancers are not identified on mammography. A negative report may reinforce clinical impression. Adenosis and dense breasts may obscure an underlying neoplasm. False positive reports average 6 to 10%. Patient will receive a letter notifying them of these results.
== END 2023-04-30 00:59 ==
LOC: DI 00:39
PROVIDERS: Visit Provider Physician Assistant
DX: M85.831 Other specified disorders of bone density and structure, right forearm (principal); Z13.820 Encounter for screening for osteoporosis; Z12.31 Encounter for screening mammogram for malignant neoplasm of breast
CPT/HCPCS: 77063; 77067; 77080

== ENCOUNTER 2023-06-02 17:00 | Outpatient (REF) | payer MEDICARE, SELFPAY ==
[2023-06-02 16:50] LABS: Calculated LDL 161 mg/dL (<100); Cholesterol 248 mg/dL (<200); HDL Cholesterol 55 mg/dL (40-60); Triglyceride 163 mg/dL (<150)
== END 2023-06-02 17:01 | disposition home or self-care (01) ==
LOC: NCHCN 17:00
PROVIDERS: Visit Provider Physician Assistant
DX: E78.5 Hyperlipidemia, unspecified (principal)
CPT/HCPCS: 80061

== ENCOUNTER 2024-03-07 10:30 | Outpatient (CLI) | payer MEDICARE, SELFPAY ==
[2024-03-07 11:22] LABS: Anion Gap 6.1 mmol/L (3-11); BUN 31 mg/dL (7-18); CO2 26.9 mmol/L (21.0-32.0); CREATININE 1.4 mg/dL (0.55-1.02); Calcium 9.5 mg/dL (8.5-10.1); Chloride 107 mmol/L (98-107); Estimated GFR 39.48 (mL/min/1.73m2); Glucose 99 mg/dL (74-106); Potassium 4.5 mmol/L (3.5-5.1); Sodium 140 mmol/L (136-145)
== END 2024-03-07 10:31 | disposition home or self-care (01) ==
LOC: LBO 10:31
PROVIDERS: Visit Provider Internal Medicine Gastroenterology
DX: R79.9 Abnormal finding of blood chemistry, unspecified (principal)
CPT/HCPCS: 36415; 80048

== ENCOUNTER → 2024-05-11 01:45 | Outpatient (CLI) | payer MEDICARE, SELFPAY ==
--- NOTE | 2024-05-11 | DI.MAMMO_ITS ---
Exam(s) MAMMO SCREENING EXAM: MAMMO SCREENING CLINICAL HISTORY: SCREENING, Z12.31. TECHNIQUE: Bilateral full field digital CC and MLO mammographic images were obtained with 3D tomosyn thesis and utilizing computer aided detection (CAD). COMPARISON: Prior mammograms were reviewed. FINDINGS: There has been no significant change in the appearance and distribution of the fibroglandular tissue. There are no new spiculated masses nor malignant appearing microcalcification groups. There is no significant architectural distortion nor skin thickening-retraction. IMPRESSION: No radiographic evidence of malignancy. BI-RADS Category 1 - Negative Breast Density - Category B - Scattered areas of fibroglandular density Breast density Category C or D implies that the patient has dense breast tissue. Dense breast tissue can make it harder to find cancer on a mammogram. Dense breast tissue is also associated with an incr eased risk of breast cancer. This information about the result of the mammogram report was provided to the patient to raise their awareness. Use this report when you speak with the patient about their risks for breast cancer, which includes their family history. At that time, you may recommend additional screening tests (Ultrasoun d or MRI) as these tests may add significant information. A negative radiographic report should not delay biopsy if a dominant or clinically suspicious mass is present. Up to ten percent of cancers are not identified on mammography. A negative report may reinforce clinical impression. Adenosis and dense breasts may obscure an underlying neoplasm. False positive reports average 6 to 10%. Patient will receive a letter notifying them of these results.
--- OUTSIDE RECORDS SUMMARY | 2024-05-11 01:51 | XMS_ITS | Clinical Summary ---
Author Organization [facility] Address [address] [place] [address] Care Team Providers Care Mobile Battery Technician Name Role Phone Christin Niño BLAST FURNACE OPERATOR Primary Care Provider [phone] Social History Tobacco Use Types Packs/Day Years Used Date Smoking Tobacco: Never Assessed Sex and Gender Information Value Date Recorded Sex Assigned at Not on file Gender Identity Not on file Sexual Orientation Not on file Plan of Treatment Health Maintenance Due Date Last Done Comments RSV Immunization ( o r 60+ Years) (1 - 1-dose 60+ series) 2010 Fall Risk Screening 2015 COVID-19 Vaccine ( season) 2023 Hepatitis C Screen Completed 03/03/2022 Procedures Procedure Name Priority Date/Time Associated Diagnosis Comments HEPATITIS C AB W REFLEX TO HCV RNA BY PCR Routine 03/03/2022 9:02 EDT from Last 3 Months or Most Recently Relevant to Health Maintenance Results * HEPATITIS C AB W REFLEX TO HCV RNA BY PCR (03/03/2022 9:02 EDT) Hep C Antibody Negative Negative 03/05/2022 11:48 EDT [facility] Blood VENOUS BLOOD / Unknown 03/03/2022 9:02 EDT 03/04/2022 16:56 EDT Provider Outr Resulting Lab CHEMISTRY & BLOOD GAS ORDERABLES [facility] [address] [place] [address] from Last 3 Months or Most Recently Relevant to Health Maintenance Care Teams Mobile Battery Technician Relationship Specialty Start Date End Date Christin Niño NP [facility] - General 04/08/17
--- OUTSIDE RECORDS SUMMARY | 2024-05-11 01:51 | XMS_ITS | Referral Summary ---
Author Organization [facility] Address [address] [place] [address] Care Team Providers Care Veterinary Pharmacologist Name Role Phone Christin Niño NP Primary Care Provider [phone] Social History Tobacco Use Types Packs/Day Years Used Date Smoking Tobacco: Never Assessed Sex and Gender Information Value Date Recorded Sex Assigned at Not on file Gender Identity Not on file Sexual Orientation Not on file Plan of Treatment Not on file Procedures Procedure Name Priority Date/Time Associated Diagnosis Comments HEPATITIS C AB W REFLEX TO HCV RNA BY PCR Routine 03/03/2022 9:02 EDT from Last 3 Months or Most Recently Relevant to Health Maintenance Results * HEPATITIS C AB W REFLEX TO HCV RNA BY PCR (03/03/2022 9:02 EDT) Hep C Antibody Negative Negative 03/05/2022 11:48 EDT [facility] Blood VENOUS BLOOD / Unknown 03/03/2022 9:02 EDT 03/04/2022 16:56 EDT Provider Outr Resulting Lab CHEMISTRY & BLOOD GAS ORDERABLES [facility] [address] [place] [address] from Last 3 Months or Most Recently Relevant to Health Maintenance Care Teams Veterinary Pharmacologist Relationship Specialty Start Date End Date Christin Niño NP PCP - General 04/08/17
--- OUTSIDE RECORDS SUMMARY | 2024-05-11 01:51 | XMS_ITS | Data Portability ---
Author Organization [place] - [facility] [place] [address] Care Team Providers Care Drug And Alcohol Counselor Name Role Phone SHAYYCherelle EDOUARD Soap Drier Operator Assessment Encounter Date Assessment Date Assessment LastModified by Organization Details LastModified Time 03/07/2024 03/07/2024 Patient presente d to office today for their Medicare Annual Wellness Visit. Education was provided on healthy nutrition, including a diet rich in fruits and vegetables, minimizing simple carbohydrates, salt, and saturated fats. Encouraged regular cardiovascular exercise such as walking at least 30 minutes daily, 5 times per week. Emphasized preventive health measures and educated pt on fall prevention and community-based lifestyle interventions to help reduce health risks and promote healthy living. Personalized prevention plan (PPP) completed and reviewed with patient. Patient was given written copy of PPP at conclusion of visit, detailing prior screening and 5-10 year future screening plan including: screenings for breast cancer and colorectal cancer, immunizations, and other age appropriate screenings consistent with USPSTF and ACIP guidelines [email or web address] Not available 03/07/2024 08:35:49 Plan of Treatment Reminders Order Date Submit Date Provider Last Modified By Organization Details Last Modified Time Details Appointments Pre - Op 30 2023 11:00A M MARINO TRUJILLO Not available Not available Not available Lab None recorded. Referral None recorded. Procedures None recorded. Surgeries None recorded. Imaging MAMMO, screening , bilateral - [facility] [address] [place] [address] [place], [address], 05/10/2024 08:10:38 Medication Orders None recorded. Patient TargetsNo targets recorded. Patient Instructions Encounter Date Encounter Id Patient Instructions Last Modified By Organization Details Last Modified Time 03/07/2024 [id number] Rosmery - we will schedule a mammogram in April. Rosmery - have the lab copy me on your blood work today. Avoid nsaids such as ibuprofen, advil, or aleve due to the shea's. I will see you back for your cataract preop. [email or web address] Not available 03/07/2024 09:59:41 Discussed and explained advance directives such as standard forms to the {{patient caregiv er patient and caregiver}}. Face to face discussion lasted for a duration of ___ minutes. [email or web address] Not available 03/07/2024 08:35:49 Reason for Referral None Reported. Results Created Date Observation Date Name Description Value Unit Range Abnormal Flag LastModifiedBy Organization Detail LastModifiedTime Result Notes None recorded. Problems Name Status Onset Date Resolution Date Notes Provider Name and Address Organization Details Recorded Time Fibromyalgia Active 2008 Problem Code: M79.7; Problem Code Type: ICD-10; Not Available [facility] 3 05:53:28 Senile osteoporosis Active 200805/03/2023 - Comments only - Marino Trujillo RPA - unchanged on 2022 dexa. Problem Code: M81.0; Problem Code Type: ICD-10; Not Available [facility] 3 05:53:29 Hyperlipidemi a Active 200809/25/2022 - Comments only - Marino Trujillo RPA - does not want to take statin. May be open to zetia but she would like lipids checked first. Fasting lipids in 3 days. She is taking cholestoff 3 tablets daily. Problem Code: E78.5; Problem Code Type: ICD-10; Not Available [facility] 3 05:53:29 Essential hypertension Active 200909/25/2022 - Comments only - Marino Trujillo RPA - well controlled on lisinopril. Problem Code: I10; Problem Code Type: ICD-10; [address], [place], [address] , [place] - [facility] 4 17:32:06 Hyperlipidemi a screening Completed 201504/23/2016 Problem Code: Z13.220; Problem Code Type: ICD-10; Not Available [facility] 3 05:53:29 Diabetes mellitus screening Completed 201504/23/2016 Problem Code: Z13.1; Problem Code Type: ICD-10; Not Available [facility] 3 05:53:29 Screening for malignant neoplasm of breast Completed 201504/23/2016 Problem Code: Z12.39; Problem Code Type: ICD-10; Not Available [facility] 3 05:53:29 Increased frequency of urination Completed 201803/08/2019 Problem Code: R35.0; Problem Code Type: ICD-10; Not Available [facility] 3 05:53:30 Mitral valve regurgitation Active 2018 on 2018 echo Problem Code: I34.0; Problem Code Type: ICD-10; [address], [place], [address] , [facility] 4 17:33:07 Shea's esophagus Active 2018 Present on [address] Gonzalez Problem Code: K22.70; Problem Code Type: ICD-10; [address], [place], [address] , [facility] 4 09:28:58 Adult health examination Active 2018 Problem Code: Z00.00; Problem Code Type: ICD-10; Not Available [facility] 3 05:53:31 Vitamin D deficiency Active 2019 Problem Code: E55.9; Problem Code Type: ICD-10; Not Available [facility] 3 05:53:31 Posttraumatic stress disorder Active 2020 Problem Code: F43.10; Problem Code Type: ICD-10; Not Available [facility] 3 05:53:31 Screening for malignant neoplasm of breast Active 202004/21/2021 - Comments only - Marino Trujillo RPA - She is overdue for screening mammogram. 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 Follows with Dr. Gonzalez. Treated with a 2 week course of pepto bismol. Problem Code: K52.831; Problem Code Type: ICD-10; Not Available [facility] 3 05:53:32 Candidiasis Completed 202108/24/2023 Problem Code: B37.9; Problem Code Type: ICD-10; Not Available [facility] 4 05:37:17 Abnormal weight loss Completed 201804/21/2019 Problem Code: R63.4; Problem Code Type: ICD-10; Not Available [facility] 3 05:53:38 Cellulitis Completed 201402/22/2019 Problem Code: L03.90; Problem Code Type: ICD-10; Not Available [facility] 3 05:53:38 Disorder of skin and/or subcutaneous tissue Completed 201804/21/2021 Problem Code: L98.8; Problem Code Type: ICD-10; Not Available [facility] 3 05:53:39 Hypertensive disorder Completed 200907/21/2023 Not Available [facility] 3 05:53:39 Hyperlipidemi a screening Completed 201907/18/2020 Problem Code: Z13.220; Problem Code Type: ICD-10; Not Available [facility] 3 05:53:40 Renal function tests outside reference range Completed 201607/18/2020 Problem Code: R94.4; Problem Code Type: ICD-10; Not Available [facility] 3 05:53:40 Fibromyositis Completed 200807/21/2023 Not Available [facility] 3 05:53:41 At risk - finding Completed 201904/21/2021 Problem Code: Z91.89; Problem Code Type: ICD-10; Not Available [facility] 3 05:53:41 Increased frequency of urination Completed 201804/21/2019 Problem Code: R35.0; Problem Code Type: ICD-10; Not Available [facility] 3 05:53:42 Urgent desire to urinate Completed 201804/21/2019 Problem Code: R39.15; Problem Code Type: ICD-10; Not Available [facility] 3 05:53:42 Neck pain Completed 201304/21/2019 Problem Code: M54.2; Problem Code Type: ICD-10; Not Available [facility] 3 05:53:43 Chalazion Completed 201412/03/2017 Problem Code: H00.19; Problem Code Type: ICD-10; Not Available [facility] 3 05:53:43 Chronic pain Completed 200803/14/2019 Problem Code: G89.29; Problem Code Type: ICD-10; Not Available [facility] 3 05:53:45 Diarrhea Completed 201704/21/2019 Not Available [facility] 3 05:53:46 Osteoporosis Completed 200807/21/2023 09/25/2022 - Comments only - Marino Trujillo RPA - Bone density when she returns from [place] next spring. Intolerant of bisphosphonat es. Takes calcium, vitamin d, and collagen. She has a lot of macho in supplements. Not Available [facility] 3 05:53:46 Urinary tract infectious disease Completed 201804/21/2019 Problem Code: N39.0; Problem Code Type: ICD-10; Not Available [facility] 3 05:53:47 Pre-surgery evaluation Completed 201412/03/2017 Problem Code: Z01.818; Problem Code Type: ICD-10; Not Available [facility] 3 05:53:48 Backache Completed 200807/21/2023 Not Available [facility] 3 05:53:48 Hemorrhoids Completed 200807/21/2023 Not Available [facility] 3 05:53:48 Dysuria Completed 201804/21/2019 Problem Code: R30.0; Problem Code Type: ICD-10; Not Available [facility] 3 05:53:48 Depressive disorder Completed 200807/21/2023 Not Available [facility] 3 05:53:49 Adult health examination Completed 201404/21/2019 Problem Code: Z00.00; Problem Code Type: ICD-10; Not Available [facility] 3 05:53:50 Disorder of skin and/or subcutaneous tissue Completed 201602/22/2019 Problem Code: L98.9; Problem Code Type: ICD-10; Not Available [facility] 3 05:53:50 Fatigue Completed 201804/21/2019 Problem Code: R53.83; Problem Code Type: ICD-10; Not Available [facility] 3 05:53:51 Renal insufficiency Active 2023 mild, stable [address], [place], [address] , [facility] 4 17:31:47 Notes:*Problem Name: Partial Blindness Os, S/p Strabismus Surg Age 5 *ICD-10 Codes: *Problem Status: active *Comments: *Note Date: 07/19/2009 Problem Notes None recorded. Medical Equipment None Reported. Allergies Allergen ID Allergen Name Allergen Category Reaction Reaction Severity Criticality Documentation Date Start Date Code Code System Note Provider Name and Address Organization Details Recorded Time 23618 sulfadiaz ine medicatio n Not available Not available Not available 09/03/20232018 98080 RxNorm Not Available [facility] 3 16:22:00 Medications Name Sig Start Date Stop Date Status Note LastModified by Organization Details LastModified Time Neurontin 300 mg capsule 2CAP 600mg am/noon, 900mg hs 10/04 completed Not Available Not Available Not Available Vicodin 5 mg-500 mg tablet 1 TAB . bid prn back pain 02/23 completed Not Available Not Available Not Available ranitidin e 300 mg tablet Take 1 by mouth daily 07/20 completed [facility] Not Available Not Available Not Available hydrocodo ne 5 mg-acetam inophen 325 mg tablet 1-2 tabs daily prn. Use sparingl y. 12/28 completed Not Available Not Available Not Available Keflex 500 mg capsule 1 tab TID 04/26 completed Not Available Not Available Not Available lisinopri l 20 mg tablet TAKE 1 TABLET BY MOUTH EVERY DAY active Not Available Not Available No t Available Medrol (Reese) 4 mg tablets in a dose pack 1 TAB DIRECTED on pkg 04/18 completed Not Available Not Available Not Available Pyridium 100 mg tablet 0.5 tab tid prn 04/21 completed Not Available Not Available Not Available triamcino lone acetonide 0.025 % lotion daily as directed 09/03 completed Not Available Not Available Not Available Diflucan 150 mg tablet Take 1 tablet by mouth single dose may repeat in 72 hours if symptoms persist 03/05 completed Not Available Not Available Not Available tramadol 50 mg tablet Take 1 tablet by mouth once a day as needed 04/19 completed Not Available Not Available Not Available Nexium 20 mg capsule,d elayed release Take 1 capsule by mouth once a day 09/25 completed Not Available Not Available Not Available calcium 500 mg (as calcium carbonate 1,250 mg) tablet Take 1 tab by mouth daily 2019 active Not Available Not Available Not Avai lable triamcino lone acetonide 0.025 % topical cream cream 10/11 completed Not Available Not Available Not Available Ocuflox 0.3 % eye drops 1-2 gtt R eye q 2-4 hrs for 2 days, then qid until symptom- free for 48 hrs. 04/24 completed Not Available Not Available Not Available lisinopri l 10 mg tablet Take 1 tablet once a day 08/19 completed Not Available Not Available Not Available cephalexi n 500 mg tablet Take 1 tab by mouth two times daily x 5 days 03/06 completed Not Available Not Available Not Available aspirin 81 mg tablet 1 qd 07/20 completed Not Available Not Available Not Available mirtazapi ne 15 mg tablet TAKE 1 TABLET BY MOUTH EVERY NIGHT 03/03 completed Not Available Not Available Not Available ergocalci ferol (vitamin D2) 1,250 mcg (50,000 unit) capsule 1CAP twice weekly 06/20 completed Not Available Not Available Not Available Aspir-81 mg tablet,de layed release Take 1 tab by mouth daily 02/07 completed Not Available Not Available Not Available budesonid e DR - ER 3 mg capsule,d elayed,ex tended release Take 3 capsules by mouth every morning for 6 weeks, then 2 capsules evr morning for 2 weeks then stop 03/10 completed Not Available Not Available Not Available oxybutyni n chloride 5 mg tablet Take 1 tab by mouth 2-3 daily prn 07/20 completed Not Available Not Available Not Available ciproflox acin ER 500 mg tablet,ex tended release 24hr mphase 1 tab po qd x 3 days 04/21 completed Not Available Not Available Not Available Fish Oil 1,000 mg capsule 1 tab daily (salmon oil) 2018 active Not Available Not Available Not Avai lable mirtazapi ne 7.5 mg tablet Take 1 tablet by mouth every night 03/20 completed Not Available Not Available Not Available Miralax 1CAP daily 04/12 completed Not Available Not Available Not Available Calcium 500 Take 1 tablet by mouth once a day 2019 active Not Available Not Available Not Avai lable collagen Take 1 applicat or by mouth once a day active Not Available Not Available No t Available red yeast rice 600 mg capsule 1200 mg by mouth once a day 09/25 completed Not Available Not Available Not Available cholecalc iferol (vitamin D3) 25 mcg (1,000 unit) tablet once a day 2016 active Not Available Not Available Not Avai lable Fish Oil 340 mg-1,000 mg capsule 1 tablet once a day 2018 active Not Available Not Available Not Avai lable Probiotic 1 tab daily 02/22 completed gets OTC Not Available Not Available Not Available Vicodin 5 mg-300 mg tablet 1 tab bid prn back pain. Use sparingl y. 04/04 completed Not Available Not Available Not Available collagen (bovine) 100 % topical powder 03/03 completed Not Available Not Available Not Available melatonin 10 mg-lemon balm leaf extract 1 mg tablet 1 tab qhs 2016 active Not Available Not Available Not Avai lable CholestOf f Complete 300 mg-100 mg capsule 08/18 completed Not Available Not Available Not Available CholestOf f Complete Take 2 by mouth daily active otc Not Available Not Available No t Available Vitals Date Recorded Body height Body mass index (BMI) Body weight Body temperature Oxygen saturation Oxygen saturation in Arterial blood by Pulse oximetry Respiratory rate Heart rate Systolic blood pressure Diastolic blood pressure Provider Name and Address Organization Details Last Updated DateTime 4 153.67 cm 26.9 kg/m2 16983.9 3 g 98.8 [degF] 100 % 100 % 16 /min 90 /min 142 mm[Hg] 66 mm[Hg] VELMA JALLOH RN [facility] 4 09:33:23 Social History Question Answer Notes LastModified by Organizat ion Details LastModified Time Tobacco Smoking Status Former Smoker VELMA JALLOH RN [facility] [place], [facility] 03/07/2024 09:28:40 When Did You Quit Smoking? 16+yearssincel astcigarette Information not available 03/07/2024 Date Of Most Recent HSA 03/07/2024 Information not available 03/07/2024 Would You Say That, In General, Your Health Is Good Information not available 03/07/2024 How Often Does Anyone, Including Family, Physically Hurt You? Never Information not available 03/07/2024 How Often Does Anyone, Including Family, Insult Or Talk Down To You? Never Information no t available 03/07/2024 How Often Does Anyone, Including Family, Threaten You With Harm? Never Information not available 03/07/2024 How Often Does Anyone, Including Family, Scream Or Curse At You? Never Information not available 03/07/2024 Within The Past 12 Months, You Worried That Your Food Would Run Out Before You Got Money To Buy More. Never True Information n ot available 03/07/2024 Within The Past 12 Months, The Food You Bought Just Didn't Last And You Didn't Have Money To Get More. Never True Information n ot available 03/07/2024 How Hard Is It For You To Pay For The Very Basics Like Food, Housing, Medical Care, And Heating? Would You Say It Is: Not Hard At All Information not available 03/07/2024 In The Past 12 Months, Has Lack Of Reliable Transportation Kept You From Medical Appointments, Meetings, Work Or From Getting Things Needed For Daily Living? No Information not available 03/07/2024 What Is Your Housing Situation Today? I Have Housing. Information not available 03/07/2024 How Often In The Past Year Have You Used Marijuana (including Smoking, Vaping, Dabbing, Or Edibles)? Never Information not available 03/07/2024 How Often In The Past Year Have You Used Prescription Medications That Were Not Prescribed To You? Never Information n ot available 03/07/2024 How Often In The Past Year Have You Taken Your Own Prescription Medication More Than The Way It Was Prescribed Or For Different Reasons Than Its Intended Purpose? Never Information no t available 03/07/2024 How Often In The Past Year Have You Used Other Drugs (for Example, Heroin, Cocaine, Meth, Salvia, Inhalants)? Never Information not available 03/07/2024 Have You Ever Used IV Drugs? No Information not available 03/07/2024 What Matters Most To You? Family, Health Information not available 03/07/2024 During The Past Four Weeks Has Your Physical And Emotional Health Limited Your Social Activities With Family And Friends, Neighbors, Or Groups? Slightly Information not available 03/07/2024 During The Past Four Weeks, Was Someone Available To Help You If You Needed And Wanted Help? (For Example, If You [place] Very Nervous, Lonely, Or Blue; Got Sick And Had To Stay In Bed; Needed Someone To Talk To; Needed Help With Daily Chores; Or Needed Help Just Taking Care Of Yourself.) Yes- As Much As I Wanted Information not available 03/07/2024 During The Past Four Weeks, What Was The Hardest Physical Activity You Could Do For At Least 2 Minutes? Moderate Information not available 03/07/2024 Can You Get To Places Out Of Walking Distance Without Help? (For Example, Can You Travel Alone On Buses Or Taxis, Or Drive Your Own Car?) Yes Information not available 03/07/2024 Can You Go Shopping For Groceries Or Clothes Without Someone? s Help? Yes Information not available 03/07/2024 Can You Prepare Your Own Meals? Yes Information not available 03/07/2024 Can You Do Your Housework Without Help? Yes Information not available 03/07/2024 Because Of Any Health Problems, Do You Need The Help Of Another Person With Your Personal Care Needs Such As Eating, Bathing, Dressing, Or Getting Around The House? No Information not available 03/07/2024 Can You Handle Your Own Money Without Help? Yes Information not available 03/07/2024 Are You Having Difficulties Driving Your Car? Yes-often Information no t available 03/07/2024 Do You Always Fasten Your Seat Belt When You Are In A Car? Yes- Usually Information not available 03/07/2024 How Often During The Past Four Weeks Have You Been Bothered By Any Of The Following Problems? Falling Or Dizzy When Standing Up? Never Information not available 03/07/2024 Sexual Problems? Never Informat ion not available 03/07/2024 Trouble Eating Well? Never Information not available 03/07/2024 Teeth Or Denture Problems? Never Information not available 03/07/2024 Problems Using The Telephone? Never Information not available 03/07/2024 Tiredness Or Fatigue? Never Information not available 03/07/2024 Have You Had 2 Or More Falls Or Sustained An Injury With A Fall In The Last Year? No Information no t available 03/07/2024 Do You Have Difficulty With Walking Or Balance? No Information not available 03/07/2024 Do You Currently Use A Hearing Device? No Information not available 03/07/2024 Do You Exercise For About 20 Minutes Three Or More Days A Week? Yes- Most Of The Time Information not available 03/07/2024 Are There Any Safety Concerns In Your Home (see Attached [facility] Pamphlet)? No Information not available 03/07/2024 How Often Do You Have Trouble Taking Medicines The Way You Have Been Told To Take Them? I Always Take Them As Prescribed Information not available 03/07/2024 How Confident Are You That You Can Control And Manage Most Of Your Health Problems? Very Confident Information not available 03/07/2024 Do You Currently Have Any Difficulty With Your Hearing? No Information not available 03/07/2024 Date Of Most Recent SBINS 03/07/2024 Information not available 03/07/2024 What Was The Date Of Your Most Recent Tobacco Screening? 03/07/2024 Information not available 03/07/2024 Sex: Female Functional Status None recorded. Mental Status None recorded. Family History Relationship Description Onset Age of this Age Resolved Age Notes Father Family history of premature coronary heart disease Notes:*Problem: Mother: Dece ased - alzheimers Father: - heart failure Sisters: 3 Brothers: 5 Pt has lost two sisters (cardiac issues) and two brothers. Family History of: Hypertension: yes Hyperlipidemia: yes Coronary heart disease: yes father, sister Diabetes mellitus: yes 2 brothers DM2 Breast cancer: yes mother, sister, 2 neices Colorectal cancer: no Prostate cancer: no Alcoholism: no Mental illness: no sister passed bone cancer, brother had bypass x4 Medical History No medical history recorded. Gynecological HistoryNo gynecological history recorded. Obstetrics History GPAL:G 0 P 0 0 0 0 Immunizations Vaccine Type Date Status Provider Name and Address Organization Details Recorded Time MMR 02/12/2006 completed Not Available [facility] 04:23:35 MMR 03/10/2006 completed Not Available [facility] 04:23:36 Td (adult), 2 Lf tetanus toxoid, preservative free, adsorbed 07/20/2019 completed Not Available [facility] 09/03/2023 04:23:36 Tdap 10/22/2008 completed Not Available [facility] 04:23:38 Pneumococcal conjugate PCV 13 04/19/2015 completed Not Available [facility] 09/03/2023 04:23:39 Influenza, high-dose, trivalent, PF 07/20/2019 completed Not Available [facility] 09/03/2023 04:23:39 Td(adult) unspecified formulation 09/03/2002 completed Not Available [facility] 09/03/2023 04:23:40 Influenza, split virus, trivalent, preservative 10/04/2015 completed Not Available [facility] 09/03/2023 04:23:40 Influenza, high-dose, quadrivalent, PF 07/23/2020 completed Not Available [facility] 09/03/2023 04:23:42 pneumococcal polysaccharide PPV23 01/24/2009 completed Not Available [facility] 2022 04:23:46 pneumococcal polysaccharide PPV23 04/18/2020 completed Not Available [facility] 2022 04:23:47 influenza, unspecified formulation 07/20/2013 completed Not Available [facility] 09/03/2023 04:23:47 Past Encounters Encounter ID Performer Location Encounter Start Date Encounter Closed Date Diagnosis/Indication Diagnosis SNOMED-CT Code [id number] MARINO TRUJILLO PA-C [facility] [address] [facility] [place] [address] 03/07/2024 09:15:35 03/07/2024 10:02:25 Adult health examination [id number] Screening mammography 24 [id number] Health Concerns Section Related Observation LastModified by Organization Detai ls LastModified Time None Recorded Concern Status LastModified by Organization Details LastModified Time None Recorded Advance Directives Directive None Recorded Payers Encounter Date Sequence Insurance Name Policy Number Policy Neil Covered Member ID Neil Member ID Guarantor Name 03/07/2024 2 [employer] (MEDICARE SUPPLEMENT) Rosmery Hernandez [id number] Rosmery Hernandez 03/07/2024 1 [place] [employer] Rosmery Hernandez [id number] Rosmery Hernandez Notes Date Note Type Note Provider Name and Address Organization Details Recorded Time 03/07/2024 text/html HPI Notes: Medic are Annual Wellness Visit Reported by patient. Diet and Nutrition: follows recommended diet Fracture Risk: no recent explained fracture; no sudden unexplained fractures Physical Activity: exercises on a regular basis; good physical condition Depression Risk: Has had some anxiety over the past month with her son hospitalized with encephalitis. Orientation: oriented to person, place, time Concentration and Memory: no decreased concentrating ability; no memory lapses or loss; does not forget words Hearing: no loss of hearing Vision: Wears glasses Instrumental Activities of Daily Living: able to do house work with limited or no assistance; able to grocery shop with limited or no assistance; able to manage medications with limited or no assistance; able to manage money with limited or no assistance; able to prepare meals with limited or no assistance; able to manage transportation with limited or no assistance Falls Risk Assessment: no frequent falls while walking Medicare Wellness Visit pain and opiate assessment Reported by patient. Notes: Rosmery is doing okay. She had to leave [place] early due to sons recent illness. He was hospitalized with encephalitis. She had a good winter. No significant illnesses. No injuries. [address], [place], [address], [facility]. 03/07/2024 15:54:17 OBGyn Episode No OBEpisode recorded.
--- OUTSIDE RECORDS SUMMARY | 2024-05-11 01:51 | XMS_ITS | Continuity of Care Document ---
Author Organization [place] - [facility] [place] [address] Care Team Providers Care Burlapper Name Role Phone [email or web address] Paper Finisher [phone] Assessment Encounter Date Assessment Date Assessment LastModified [...] MAMMO, screening , bilateral - screening mammogram 2023 0717/2 024 [facility] (Radiology), [address] [facility] [place], [address], 05/10/2024 08:10:38 Medication Orders None recorded. Patient TargetsNo targets recorded. Patient Instructions Encounter Date Encounter Id Patient Instructions Last Modified By Organization Details Last Modified Time 03/07/2024 [id number] Rosmery - we will schedule a mammogram in April. Rosmery - have the lab copy me on your blood work today. Avoid nsaids such as ibuprofen, advil, or aleve due to the shea's. I will see you back for your cataract preop. [email or web address] Not available 03/07/2024 09:59:41 Discussed and explained advance directives such as standard forms to the {{patient caregiv er patient and caregiver}}. Face to face discussion lasted for a duration of ___ minutes. [email or web address] Not available 03/07/2024 08:35:49 Reason for Referral None Reported. Problems Name Status Onset Date Resolution Date Notes Provider Name and Address Organization Details Recorded Time Fibromyalgia Active 2008 Problem Code: M79.7; Problem Code Type: ICD-10; Not Available [facility] 3 05:53:28 Senile osteoporosis Active 200805/03/2023 - Comments only - Marino Trujillo RPA - unchanged on 2022 dexa. Problem Code: M81.0; Problem Code Type: ICD-10; Not Available [facility] 3 05:53:29 Hyperlipidemi a Active 200809/25/2022 - Comments only - Marino Trujillo RPA - does not want to take statin. May be open to zetia but she would like lipids checked first. Fasting lipids in 3 days. She is taking cholestoff 3 tablets daily. Problem Code: E78.5; Problem Code Type: ICD-10; Not Available [facility] 3 05:53:29 Essential hypertension Active 200909/25/2022 - Comments only - Marino Trujillo RPA - well controlled on lisinopril. Problem Code: I10; Problem Code Type: ICD-10; [address], [place], [address] , [facility]. 4 17:32:06 Hyperlipidemi a screening Completed 201504/23/2016 Problem Code: Z13.220; Problem Code Type: ICD-10; Not Available [facility] 3 05:53:29 Diabetes mellitus screening Completed 201504/23/2016 Problem Code: Z13.1; Problem Code Type: ICD-10; Not Available [facility] 3 05:53:29 Screening for malignant neoplasm of breast Completed 201504/23/2016 Problem Code: Z12.39; Problem Code Type: ICD-10; Not Available [facility] 3 05:53:29 Increased frequency of urination Completed 201803/08/2019 Problem Code: R35.0; Problem Code Type: ICD-10; Not Available [facility] 3 05:53:30 Mitral valve regurgitation Active 2018 on 2018 echo Problem Code: I34.0; Problem Code Type: ICD-10; [address], [place], [address] , [facility] 4 17:33:07 Shea's esophagus Active 2018 Present on [address] Gonzalez Problem Code: K22.70; Problem Code Type: ICD-10; [address], [place], [address] , [facility] 4 09:28:58 Adult health examination Active 2018 Problem Code: Z00.00; Problem Code Type: ICD-10; Not Available [facility] 3 05:53:31 Vitamin D deficiency Active 2019 Problem Code: E55.9; Problem Code Type: ICD-10; Not Available [facility] 3 05:53:31 Posttraumatic stress disorder Active 2020 Problem Code: F43.10; Problem Code Type: ICD-10; Not Available [facility] 3 05:53:31 Screening for malignant neoplasm of breast Active 202004/21/2021 - Comments only - Marino Trujillo RPA - She is overdue for screening mammogram. Problem Code: Z12.39; Problem Code Type: ICD-10; Not Available [facility] 3 05:53:32 Viral screening Completed 202108/24/2023 Problem Code: Z11.59; Problem Code Type: ICD-10; Not Available [facility] 4 05:37:18 Neck pain Active 202103/30/2023 - Comments only - Marino Trujillo [facility] - C3-4 and C4-5 left sided stenosis on 02/2023 MRI Problem Code: M54.2; Problem Code Type: ICD-10; Not Available [facility] 3 05:53:32 Collagenous colitis Active 202109/25/2022 - Comments only - Marino Trujillo RPA - recent weight loss due to exacerbation that is now under better control. Follows with Dr. Gonzalez. Treated with a 2 week course of pepto bismol. Problem Code: K52.831; Problem Code Type: ICD-10; Not Available [facility] 3 05:53:32 Candidiasis Completed 202108/24/2023 Problem Code: B37.9; Problem Code Type: ICD-10; Not Available [facility] 4 05:37:17 Abnormal weight loss Completed 201804/21/2019 Problem Code: R63.4; Problem Code Type: ICD-10; Not Available [facility] 3 05:53:38 Cellulitis Completed 201402/22/2019 Problem Code: L03.90; Problem Code Type: ICD-10; Not Available [facility] 3 05:53:38 Disorder of skin and/or subcutaneous tissue Completed 201804/21/2021 Problem Code: L98.8; Problem Code Type: ICD-10; Not Available [facility] 3 05:53:39 Hypertensive disorder Completed 200907/21/2023 Not Available [facility] 3 05:53:39 Hyperlipidemi a screening Completed 201907/18/2020 Problem Code: Z13.220; Problem Code Type: ICD-10; Not Available [facility] 3 05:53:40 Renal function tests outside reference range Completed 201607/18/2020 Problem Code: R94.4; Problem Code Type: ICD-10; Not Available [facility] 3 05:53:40 Fibromyositis Completed 200807/21/2023 Not Available [facility] 3 05:53:41 At risk - finding Completed 201904/21/2021 Problem Code: Z91.89; Problem Code Type: ICD-10; Not Available [facility] 3 05:53:41 Increased frequency of urination Completed 201804/21/2019 Problem Code: R35.0; Problem Code Type: ICD-10; Not Available [facility] 3 05:53:42 Urgent desire to urinate Completed 201804/21/2019 Problem Code: R39.15; Problem Code Type: ICD-10; Not Available [facility] 3 05:53:42 Neck pain Completed 201304/21/2019 Problem Code: M54.2; Problem Code Type: ICD-10; Not Available [facility] 3 05:53:43 Chalazion Completed 201412/03/2017 Problem Code: H00.19; Problem Code Type: ICD-10; Not Available [facility] 3 05:53:43 Chronic pain Completed 200803/14/2019 Problem Code: G89.29; Problem Code Type: ICD-10; Not Available [facility] 3 05:53:45 Diarrhea Completed 201704/21/2019 Not Available [facility] 3 05:53:46 Osteoporosis Completed 200807/21/2023 09/25/2022 - Comments only - Marino Trujillo RPA - Bone density when she returns from [place] next spring. Intolerant of bisphosphonat es. Takes calcium, vitamin d, and collagen. She has a lot of macho in supplements. Not Available [facility] 3 05:53:46 Urinary tract infectious disease Completed 201804/21/2019 Problem Code: N39.0; Problem Code Type: ICD-10; Not Available [facility] 3 05:53:47 Pre-surgery evaluation Completed 201412/03/2017 Problem Code: Z01.818; Problem Code Type: ICD-10; Not Available [facility] 3 05:53:48 Backache Completed 200807/21/2023 Not Available [facility] 3 05:53:48 Hemorrhoids Completed 200807/21/2023 Not Available [facility] 3 05:53:48 Dysuria Completed 201804/21/2019 Problem Code: R30.0; Problem Code Type: ICD-10; Not Available [facility] 3 05:53:48 Depressive disorder Completed 200807/21/2023 Not Available [facility] 3 05:53:49 Adult health examination Completed 201404/21/2019 Problem Code: Z00.00; Problem Code Type: ICD-10; Not Available [facility] 3 05:53:50 Disorder of skin and/or subcutaneous tissue Completed 201602/22/2019 Problem Code: L98.9; Problem Code Type: ICD-10; Not Available [facility] 3 05:53:50 Fatigue Completed 201804/21/2019 Problem Code: R53.83; Problem Code Type: ICD-10; Not Available [facility] 3 05:53:51 Renal insufficiency Active 2023 mild, stable [address], [place], [address] , [facility] 4 17:31:47 Notes:*Problem Name: Partial Blindness Os, S/p Strabismus Surg Age 5 *ICD-10 Codes: *Problem Status: active *Comments: *Note Date: 07/19/2009 Problem Notes None recorded. Medical Equipment None Reported. Allergies Allergen ID Allergen Name Allergen Category Reaction Reaction Severity Criticality Documentation Date Start Date Code Code System Note Provider Name and Address Organization Details Recorded Time 21830 sulfadiaz ine medicatio n Not available Not available Not available 09/03/20232018 60089 RxNorm Not Available [facility] 3 16:22:00 Medications Name Sig Start Date [...] Updated DateTime 4 153.67 cm 26.9 kg/m2 89969.9 3 g 98.8 [degF] 100 % 100 % 16 /min 90 /min 142 mm[Hg] 66 mm[Hg] VELMA JALLOH RN [facility] 4 09:33:23 Social History Question Answer Notes LastModified by Organizat ion Details LastModified Time Tobacco Smoking Status Former Smoker VELMA JALLOH RN [facility], [facility] 03/07/2024 09:28:40 When Did You Quit [...] And Wanted Help? (For Example, If You [place] Very Nervous, Lonely, Or Blue; Got Sick [...] Safety Concerns In Your Home (see Attached [facility] Pamphlet)? No Information not available 03/07/2024 [...] Recorded Time MMR 02/12/2006 completed Not Available [facility] 04:23:35 MMR 03/10/2006 completed Not Available [facility] 04:23:36 Td (adult), 2 Lf tetanus toxoid, preservative free, adsorbed 07/20/2019 completed Not Available [facility] 09/03/2023 04:23:36 Tdap 10/22/2008 completed Not Available [facility] 04:23:38 Pneumococcal conjugate PCV 13 04/19/2015 completed Not Available [facility] 09/03/2023 04:23:39 Influenza, high-dose, trivalent, PF 07/20/2019 completed Not Available [facility] 09/03/2023 04:23:39 Td(adult) unspecified formulation 09/03/2002 completed Not Available [facility] 09/03/2023 04:23:40 Influenza, split virus, trivalent, preservative 10/04/2015 completed Not Available [facility] 09/03/2023 04:23:40 Influenza, high-dose, quadrivalent, PF 07/23/2020 completed Not Available [facility] 09/03/2023 04:23:42 pneumococcal polysaccharide PPV23 01/24/2009 completed Not Available [facility] 2022 04:23:46 pneumococcal polysaccharide PPV23 04/18/2020 completed Not Available [facility] 2022 04:23:47 influenza, unspecified formulation 07/20/2013 completed Not Available [facility] 09/03/2023 04:23:47 Past Encounters Encounter ID Performer Location Encounter Start Date Encounter Closed Date Diagnosis/Indication Diagnosis SNOMED-CT Code [id number] MARINO TRUJILLO PA-C [facility] [place] [address] [place] [address] 03/07/2024 09:15:35 03/07/2024 10:02:25 Adult health examination [id number] Screening mammography 24 042256 Health Concerns Section Related Observation LastModified by Organization Detai ls LastModified Time None Recorded Concern Status LastModified by Organization Details LastModified Time None Recorded Payers Encounter Date Sequence Insurance Name Policy Number Policy Neil Covered Member ID Neil Member ID Guarantor Name 03/07/2024 2 [employer] (MEDICARE SUPPLEMENT) Rosmery Hernandez [id number] Rosmery Hernandez 03/07/2024 1 [place] [employer] Rosmery Hernandez [id number] Rosmery Hernandez Notes Date Note Type [...] is doing okay. She had to leave [place] early due to sons recent illness. He was hospitalized with encephalitis. She had a good winter. No significant illnesses. No injuries. [address], [place], [address], [facility]. 03/07/2024 15:54:17 OBGyn Episode No OBEpisode recorded.
--- OUTSIDE RECORDS SUMMARY | 2024-05-11 01:51 | XMS_ITS | Encounter Summary ---
Author Organization [facility] Address [address] [place] [address] Care Team Providers Care Office Inspector Name Role Phone NiñoChristin encarnacion DANNY Primary Care Provider [phone] Encounter Details Date Type Department Care Team (Late st Contact Info) Description 03/04/2022 Lab Requisition [facility] Pathology & Laboratory Medicine - [address] [id number] Outr Resulting Lab, Provider Social History Tobacco Use Types Packs/Day Years Used Date Smoking Tobacco: Never Assessed Sex and Gender Information Value Date Recorded Sex Assigned at Not on file Gender Identity Not on file Sexual Orientation Not on file documented as of this encounter Plan of Treatment Not on file documented as of this encounter Procedures Procedure Name Priority Date/Time Associated Diagnosis Comments HEPATITIS C AB W REFLEX TO HCV RNA BY PCR Routine 03/03/2022 9:02 EDT documented in this encounter Results * HEPATITIS C AB W REFLEX TO HCV RNA BY PCR (03/03/2022 9:02 EDT) Hep C Antibody Negative Negative 03/05/2022 11:48 EDT [facility] Blood VENOUS BLOOD / Unknown 03/03/2022 9:02 EDT 03/04/2022 16:56 EDT Provider Outr Resulting Lab CHEMISTRY & BLOOD GAS ORDERABLES [facility] [address] [place] [address] documented in this encounter Visit Diagnoses Not on filedocumented in this encounter Care Teams Office Inspector Relationship Specialty Start Date End Date Christin Niño NP PCP - General 04/08/17 documented as of this encounter
--- OUTSIDE RECORDS SUMMARY | 2024-05-11 01:51 | XMS_ITS | Encounter Summary ---
Author Organization [facility] Address [facility] [place] [address] Care Team Providers Care Campground Caretaker Name Role Phone Ramsey Garrett DNP Primary Care Provider Encounter Details Date Type Department Care Team (Latest Contact Info) Description 03/08/2024 Travel Social History Tobacco Use Types Packs/Day Years Used Date Smoking Tobacco: Former Smokeless Tobacco: Never Alcohol Use Standard Drinks/Week Comments Never 0 (1 standard drink = 0.6 oz pur e alcohol) Sex and Gender Information Value Date Recorded Sex Assigned at Not on file Gender Identity Not on file Sexual Orientation Not on file documented as of this encounter Plan of Treatment Upcoming Encounters Date Type Department Care Team (Latest Contact Info) Description 05/18/2024 12:21 PM EDT Hospital Encounter [place] [address] Lai Cohen MD [facility] DR [place] [address] 05/18/2024 12:21 PM EDT - 05/18/2024 1:06 PM EDT Surgery [place] [id number] Lai Cohen MD [facility] DR O[place]THAL[place] [address] CATARACT EXTRACTION, EXTRACAPSULAR, W/ LENS INSERTION (WRVU 7.35) 05/19/2024 12:30 PM EDT [place] [address] Lai Cohen MD [facility] DR [place] [address] 05/26/2024 3:15 PM EDT [place] [address] Lai Cohen MD [facility] DR [place] [address] 06/13/2024 8:45 AM EDT [place] [address] Lai Cohen MD [facility] DR [place]ALMOLOG[place] [address] Scheduled Procedures Name Priority Associated Diagnoses Date/Ti me CATARACT EXTRACTION, EXTRACAPSULAR, W/ LENS INSERTION (WRVU 7.35) Cataract 05/18/2024 12:21 PM EDT documented as of this encounter Visit Diagnoses Not on filedocumented in this encounter Care Teams Campground Caretaker Relationship Specialty Start Date End Date Ramsey Garrett DNP [address] [place] [id number] PCP - General Family Medicine 03/16/19 03/13/24 documented as of this encounter
--- OUTSIDE RECORDS SUMMARY | 2024-05-11 01:51 | XMS_ITS | Clinical Summary ---
Author Organization [facility] Address [facility] [place] [address] Care Team Providers Care Educational Assistant Name Role Phone Marino Schultz Primary Care Provider [phone] Allergies Active Allergy Reactions Criticality Noted Date Comments Sulfa (Sulfonamide Antibiotics) 04/24 Medications Medication Sig Dispensed Refills Start Date End Date Status OMEGA-3S/DHA/EPA/FISH OIL (OMEGA 3 ORAL) Take 500 mg by mouth daily. Active PLANT STANOL SHERRIE (CHOLEST OFF ORAL) Take by mouth daily. Active lisinopril (PRINIVIL;ZESTRIL) 10 mg Tablet Take 10 mg by mouth daily. Active melatonin 10 mg Capsule Take 10 mg by mouth nightly. Active diphenhydrAMINE (BENADRYL) 25 mg Capsule Take 25 mg by mouth every 6 hours as needed for Itching or Sleep. Active cholecalciferol, Vitamin D3, 2,000 unit Capsule Take 2,000 Units by mouth daily. Active Cranberry 500 mg Capsule Take 500 mg by mouth daily. 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 03/08/2024 Travel from Last 3 Months Family History Medical History Relation Comments Glaucoma Neg Hx Macular Degeneration Neg Hx Retinal Detachment Neg Hx Social History Tobacco Use Types Packs/Day Years Used Date Smoking Tobacco: Former Smokeless Tobacco: Never Alcohol Use Standard Drinks/Week Comments Never 0 (1 standard drink = 0.6 oz pur e alcohol) Sex and Gender Information Value Date Recorded Sex Assigned at Not on file Gender Identity Not on file Sexual Orientation Not on file Last Filed Vital Signs Vital Sign Reading Time Taken Comments Blood Pressure 128/59 06/15/2019 10:10 AM EDT Pulse 60 06/15/2019 10:10 AM EDT Temperature - - Respiratory Rate - - Oxygen Saturation 100% 06/15/2019 10:10 AM EDT Inhaled Oxygen Concentration - - Weight 64 kg (141 lb) 06/15/2019 10:10 AM EDT Height 154.9 cm (5' 1) 06/15/2019 10:10 AM EDT Body Mass Index 26.64 06/15/2019 10:10 AM EDT Plan of Treatment Upcoming Encounters Date Type Department Care Team (Latest Contact Info) Description 05/18/2024 12:21 PM EDT Hospital Encounter [place] [address] Lai Cohen MD [facility] [place] [address] 05/18/2024 12:21 PM EDT - 05/18/2024 1:06 PM EDT Surgery [place] [address] Lia Cohen MD [facility] [place] [address] CATARACT EXTRACTION, EXTRACAPSULAR, W/ LENS INSERTION (WRVU 7.35) 05/19/2024 12:30 PM EDT Office [place] [phone] Lai Cohen MD [facility] [place] [address] 05/26/2024 3:15 PM EDT Office [place] [address] Lai Cohen MD [facility] [place] [address] 06/13/2024 8:45 AM EDT Office [place] [address] Lai Cohen MD [facility] [place] [address] Scheduled Procedures Name Priority Associated Diagnoses Date/Ti me CATARACT EXTRACTION, EXTRACAPSULAR, W/ LENS INSERTION (WRVU 7.35) Cataract 05/18/2024 12:21 PM EDT Health Maintenance Due Date Last Done Comments CT Colonography 1950 Colonoscopy 1950 Colorectal Cancer Screening 1950 FIT DNA 1950 FIT 1950 Sigmoidoscopy (10 year) with FIT yearly 1950 Sigmoidoscopy 1950 Hepatitis C Screening 02/24/1968 Tdap adult 1969 Tetanus vaccine 1969 Breast Cancer Share Decision Needed 1990 Breast Cancer screening 1990 Zoster vaccine (1 of 2) 02/24/2000 Advance Directive 2005 Bone Density Scan 2015 Pneumoccocal Vaccine: 65+ (1 of 1 - PCV) 2015 Covid-19 Vaccine (1 - 2022-24 season) 2023 Influenza (Flu) vaccine (1 o f 1 - Influenza standard series) 06/25/2024 Diabetes Screening (HgbA1C or Glucose) Discontinued Procedures Procedure Name Priority Date/Time Associated Diagnosis Comments BASIC METABOLIC PANEL (NON-FASTING) Routine 06/15/2019 11:15 AM EDT Urinary tract infection without hematuria, site unspecified Elevated serum creatinine from Last 3 Months or Most Recently Relevant to Health Maintenance Results * (ABNORMAL) Basic Metabolic Panel (non-fasting) (06/15/2019 11:15 AM EDT) Glucose Lvl 101 65 - 199 mg/dL [facility] Comment:Diabetes: >=200 mg/d L plus symptoms BUN 17 8 - 18 mg/dL [facility] Creatinine 1.01 0.70 - 1.20 mg/dL [facility] Sodium 140 135 - 145 mmol/L [facility] Potassium 4.3 3.5 - 5.0 mmol/L [facility] Comment: Please note: ??Patients with WBC >100,000 may have falsely elevated Potassium levels. ??For accurate Potassium quantification in these patients send serum separator tube (gold top) for subsequent determinations. ??Contact the Clinical Chemistry Laboratory if there are any questions. Chloride 104 98 - 107 mmol/L [facility] CO2 28 22 - 31 mmol/L [facility] Anion Gap 8 5 - 15 mmol/L [facility] Calcium 9.8 8.5 - 10.5 mg/dL [facility] Estimated GFR 57(L) >=60 mL/min/1. 73 m?? [facility] Comment: The eGFR was calculated using the CKD-EPI equation. As with all creatinine based estimates of kidney function, eGFR values calculated with the CKD-EPI equation are not accurate in patients with acute kidney failure, extremes of body mass or the acutely ill. http://[employer] eGFR 66 >=60 mL/min/1. 73 m?? [facility] Comment: The eGFR was calculated using the CKD-EPI equation. As with all creatinine based estimates of kidney function, eGFR values calculated with the CKD-EPI equation are not accurate in patients with acute kidney failure, extremes of body mass or the acutely ill. http://[employer] Blood specimen (specimen) 06/15/2019 11:15 AM EDT 06/15/2019 11:36 AM EDT Narrative Resulting Agency Comment Spec In Lab Justina Mccoy MD CHEMISTRY ORDERABLES [facility] [place] [address] from Last 3 Months or Most Recently Relevant to Health Maintenance Care Teams Educational Assistant Relationship Specialty Start Date End Date Marino Schultz PA [address] [place], [place] [id number] PCP - General Internal Medicine 03/14/24
--- OUTSIDE RECORDS SUMMARY | 2024-05-11 01:51 | XMS_ITS | Encounter Summary ---
Author Organization [facility] Address [address] [place] [address] Care Team Providers Care Wood Boring Machine Operator Name Role Phone Unknown, Provider Primary Care Provider Encounter Details Date Type Department Care Team (Late st Contact Info) Description 04/05/2017 Results Only [facility] [phone] Radhika Riojas, [address] [place], [place] [id number] Social History Tobacco Use Types Packs/Day Years Used Date Smoking Tobacco: Never Assessed Sex and Gender Information Value Date Recorded Sex Assigned at Not on file Gender Identity Not on file Sexual Orientation Not on file documented as of this encounter Plan of Treatment Not on file documented as of this encounter Procedures Procedure Name Priority Date/Time Associated Diagnosis Comments SURGICAL PATHOLOGY Routine 04/05/2017 8:50 EDT documented in this encounter Results * SURGICAL PATHOLOGY (04/05/2017 8:50 EDT) Pathology Report: SURGICAL PATHOLOGY REPORT Reports generated via electronic interface contain original data; however they are lacking the format of the original report. Caution should be taken when reading/interpret ing unformatted reports. Name: ? ROSMERY BOND ? Accession #: ? [id number] ? : ? 1950 (Age: 67) ??F ? Collect Date: ? 04/05/2017 ? Location: ? [facility] ? Receive Date: ? 04/06/2017 ? Provider: RADHIKA RIOJAS DO Copy to: CLARA BANG CANOE BUILDER ? Final Pathologic Diagnosis: A. SKIN OF ANTERIOR HAIRLINE, LEFT, SHAVE BIOPSIES: - Actinic keratosis, inflamed. - Lesion extends to biopsy edge. B. ??SKIN OF LIP, LEFT UPPER, SHAVE BIOPSIES: - Actinic keratosis, inflamed with secondary impetiginization. - Lesion extends to biopsy edge and base. ?? Document reviewed and electronically signed by: CHILO BURNHAM MD Report ??Date: 04/07/2017 12:20 By the signature above, the attending physician certifies that he/she has personally conducted a gross and/or microscopic examination of the described specimens and rendered or confirmed the above diagnosis. Specimen(s) Received: A. ??Left anterior hairline B. ??Left upper lip Clinical History: Nonhealing skin lesion; clinical diagnosis code: D49.2 Gross Description: A. ?Received in formalin labelled with proper patient identification (initials M, P) and left anterior hairline are three irregular shave biopsies of skin (0.7 x 0.5 x 0.1 cm to 0.9 x 0.8 x 0.1 cm). The skin surfaces are dusky and michele-sanchez. The margins are inked. The tissues are sectioned and entirely submitted as follows: BLOCK BUSTAMANTE A1- ??one shave, bisected A2- ??one shave, trisected A3- ??one shave, trisected B. ?Received in formalin labelled with proper patient identification (initials M, P) and left upper lip is an irregular shave biopsy of skin (1.2 x 0.8 x 0.1 cm). The skin surface is dusky and sanchez-tapia. The margin is inked. Serially sectioned and entirely submitted in B1 and B2. MARY Barrett (ASCP) 04/06/2017 10:10 AM End of Report [facility] 04/05/2017 8:50 EDT 04/06/2017 8:50 EDT Radhika Riojas DO PATHOLOGY ORDER OPAL [facility] [address] [place] [address] documented in this encounter Visit Diagnoses Not on filedocumented in this encounter Care Teams Wood Boring Machine Operator Relationship Specialty Start Date End Date Unknown, Provider, PCP - General 04/06/17 04/07/17 documented as of this encounter
--- OUTSIDE RECORDS SUMMARY | 2024-05-11 01:51 | XMS_ITS | Encounter Summary ---
Author Organization [facility] Address [facility] [place] [id number] Care Team Providers Care Hat Blocking Machine Operator Name Role Phone Ramsey Garrett DNP Primary Care Provider [phone] Reason for Visit * Reason Comments Blurred Vision * Consultation (Routine) - Closed Specialty Diagnoses / Procedures Referred By Tg diaz Referred To Contact Ophthalmology Diagnoses CAT EVAL OD Bhargav, Shelli, OD [address] [place] [address] Lai Cohen MD [facility] DR [place] [address] Referral ID Status Reason Start Date Expiration Date V isits Requested Visits Authorized [id number] Closed Consult, Test & Treat 07/29/2023 07/28/2024 1 1 Encounter Details Date Type Department Care Team (Late st Contact Info) Description 03/08/2024 2:15 PM EDT Office [place] [address] Lai Cohen MD [facility] DR OPHTHALMOLOGY DEPT. [place], [place] [phone] Cataract, unspecified cataract type, unspecified laterality; Amblyopia, left- with patching and strab surg in childhood Social History Tobacco Use Types Packs/Day Years Used Date Smoking Tobacco: Former Smokeless Tobacco: Never Alcohol Use Standard Drinks/Week Comments Never 0 (1 standard drink = 0.6 oz pur e alcohol) Sex and Gender Information Value Date Recorded Sex Assigned at Not on file Gender Identity Not on file Sexual Orientation Not on file documented as of this encounter Patient Instructions * Patient Instructions* Lai Cohen MD - 03/08/2024 2:15 PM EDT Medications: Use eye medications as instructed by Dr. Cohen during your appointment. For non eye medications not prescribed by the Ophthalmology (Eye) Clinic, please follow up with your PCP (primary care provider) for instructions. Dilation: Your eyes may have been dilated during your visit. Patients response to dilation varies and the duration of dilation can range from 4 to 24 hours. Be careful with visually demanding tasks until these effects have worn off. Driving: Wait until your vision has returned to normal baseline after your eye visit before driving. Changes in vision or eyes: Please call the eye clinic, , for any significant changes invision, new flashes or floaters or eye pain Eye safety is important: please use eye protection during any activities in which you could injury your eyes. documented in this encounter Progress Notes * Lai Cohen MD - 03/08/2024 2:15 PM EDT Encounter Diagnoses Name Primary? Cataract, unspecified cataract type, unspecified laterality Amblyopia, left- with patching and strab surg in childhood Rosmery Hernandez is a 74 y.o. with the following ophthalmic problems: Cataracts OU: Rosmery Hernandez has visually significant cataract interfering with visual tasks. Cataract seems zachariah substantially contributing to their visual loss and I did not identify other ocular conditions, other than noted in this report, to explain their symptoms and findings. Rosmery Hernandez understands that residents may participate in the surgery. We discussed the risks, benefits and alternatives to cataract surgery. IOL alternatives were also reviewed. Rosmery expressed understanding and elected cataract surgery in her LEFT eye with a monofocal IOL. - Target Refraction: -0.5 D -Discussed that this is an estimate and that there would likely be a post operative need for glasses to achieve best vision. - Special surgical issues: history of strab surgery with longstanding amblyopia OS. Prefers surgeryOS first before putting OD at risk No SUZANNE - Dilation: good but slow, drops early - Code status: full code for eye surgery - Allergies: Allergies Allergen Reactions Sulfa (Sulfonamide Antibiotics) - Surgical orders entered - Surgical consent signed - AAO cataract handouts given - Surgical coordination initiated - Call prn any problems or questions. - Cautioned about driving in the perioperative period Amblyopia of left eye with h/o patching and strabismus surgery in childhood Plan: - as above - Follow up for surgery or as needed - Findings and concerns discussed with Rosmery and she expressed understanding. -Upon Return IOP MR if vision down by 2 lines compared to last visit documented in this encounter Plan of Treatment Upcoming Encounters Date Type Department Care Team (Latest Contact Info) Description 05/18/2024 12:21 PM EDT Hospital Encounter [place] [address] Lai Cohen MD [facility] DR [place] [address] 05/18/2024 12:21 PM EDT - 05/18/2024 1:06 PM EDT Surgery [place] [address] Lai Cohen MD [facility] DR [place] [address] CATARACT EXTRACTION, EXTRACAPSULAR, W/ LENS INSERTION (WRVU 7.35) 05/19/2024 12:30 PM EDT [place] [address] Lai Cohen MD [facility] DR [place] [address] 05/26/2024 3:15 PM EDT [place] [address] Lai Cohen MD [facility] DR [place] [address] 06/13/2024 8:45 AM EDT [place] [address] Lai Cohen MD [facility] DR [place] [address] Scheduled Orders Name Type Priority Associated Diagnoses Orde r Schedule SURGICAL CASE REQUEST NO POSTOP PAIN: CATARACT EXTRACTION, EXTRACAPSULAR, W/ LENS INSERTION (WRVU 7.35) Procedures Routine One Time for 1 Occurrences starting 03/08/2024 until 03/08/2024 Scheduled Procedures Name Priority Associated Diagnoses Date/Ti me CATARACT EXTRACTION, EXTRACAPSULAR, W/ LENS INSERTION (WRVU 7.35) Cataract 05/18/2024 12:21 PM EDT documented as of this encounter Visit Diagnoses Diagnosis Cataract, unspecified cataract type, unspecified laterality Amblyopia, left- with patching and strab surg in childhood documented in this encounter Care Teams Hat Blocking Machine Operator Relationship Specialty Start Date End Date Ramsey Garrett DNP [address] [place] [address] PCP - General Family Medicine 03/16/19 03/13/24 documented as of this encounter
--- OUTSIDE RECORDS SUMMARY | 2024-05-11 01:52 | XMS_ITS | Encounter Summary ---
Author Organization [facility] Address [facility] [place] [id number] Care Team Providers Care Tv Technician Name Role Phone Ramsey Garrett DNP Primary Care Provider Reason for Visit * Reason Comments Procedure Encounter Details Date Type Department Care Team (Latest Contact Info) Description 09/07/2023 2:00 PM EST Procedure [place] [phone] Lai Cohen MD [facility] DR [place] [address] Cataract, unspecified cataract type, unspecified laterality Social History Tobacco Use Types Packs/Day Years Used Date Smoking Tobacco: Former Smokeless Tobacco: Never Sex and Gender Information Value Date Recorded Sex Assigned at Not on file Gender Identity Not on file Sexual Orientation Not on file documented as of this encounter Progress Notes * Lai Cohen MD - 09/07/2023 2:00 PM EST POMs done today. documented in this encounter Plan of Treatment Upcoming Encounters Date Type Department Care Team (Latest Contact Info) Description 05/18/2024 12:21 PM EDT Hospital Encounter [place]patient [place] [phone] Lai Cohen MD [facility] DR [place] [address] 05/18/2024 12:21 PM EDT - 05/18/2024 1:06 PM EDT Surgery [facility] [address] Lai Cohen MD [facility] DR [place] [address] CATARACT EXTRACTION, EXTRACAPSULAR, W/ LENS INSERTION (WRVU 7.35) 05/19/2024 12:30 PM EDT Office Visit Ophthalmology at [address] Lai Cohen MD [facility] DR [place] [address] 05/26/2024 3:15 PM EDT Office Visit Ophthalmology at [place] [phone] Lai Cohen MD [facility] DR [place] [address] 06/13/2024 8:45 AM EDT Office Visit Ophthalmology at [place] [phone] Lai Cohen MD [facility] DR [place] [address] Scheduled Procedures Name Priority Associated Diagnoses Date/Ti me CATARACT EXTRACTION, EXTRACAPSULAR, W/ LENS INSERTION (WRVU 7.35) Cataract 05/18/2024 12:21 PM EDT documented as of this encounter Procedures Procedure Name Priority Date/Time Associated Diagnosis Comments [id number] CALC BY LASER INTERFEROMETRY - OU - BOTH EYES Routine 09/09/2023 7:32 AM EST Cataract, unspecified cataract type, unspecified laterality documented in this encounter Results * [id number] Calc By Laser Interferometry - OU - Both Eyes (09/09/2023 7:32 AM EST) Anatomical Region Laterality Modality Other Narrative 09/09/2023 7:32 AM EST Table formatting from the original result was not included. Patient Hx Past Medical Hx ??Pt. ??has no past medical history on file. Past Ophth Surg Hx ??No relevant surgical history has been documented for this patient. Eye Meds ??Cranberry, cholecalciferol (Vitamin D3), diphenhydrAMINE, esomeprazole, lisinopriL, melatonin, omega-3s/dha/epa/fish oil, and plant stanol miko IOL Biometry - Initial (source: [employer]) OD OS Date Performed 09/07/2023 ??6:10 PM 09/07/2023 ??6:10 PM ?? Target Refraction -0.25 -0.25 ?? Axial Length 22.43 (mm) 21.88 (mm) ?? Anterior Chamber Depth 2.82 (mm) 2.83 (mm) ?? Horizontal White to White 11.84 (mm) 11.9 (mm) ?? Formula Used ? K's 44.87, 44.94@119, 112 / 46.05, 46.11@029, 022 45.60, 45.79@098, 095 / 46.01, 46.23@008, 005 ? Add'l Comments/Discrepancies/Concerns: POM done by ALEKSANDRA on 09/07/2023 Hx of Amblyopia OS, surgery age 5 at [facility] Difference in Axial Lengths OU confirmed using IOL-Master IOL-Master results: AL - OD: 22.44 mm ?? OS: 21.91 mm ACD - OD: 2.80 mm ?? OS: 2.82 mm WTW - OD: 12.00 mm ?? OS: 12.00 mm AL difference noted Lai Cohen MD OPHTHALMOLOGY SERVIC ES ORDERABLES documented in this encounter Visit Diagnoses Diagnosis Cataract, unspecified cataract type, unspecified laterality documented in this encounter Care Teams Tv Technician Relationship Specialty Start Date End Date Ramsey Garrett DNP [address] [place] [address] PCP - General Family Medicine 03/16/19 03/13/24 documented as of this encounter
--- OUTSIDE RECORDS SUMMARY | 2024-05-11 01:52 | XMS_ITS | Encounter Summary ---
Author Organization [facility] Address [facility] [place] [address] Care Team Providers Care Rock Picker Name Role Phone Ramsey Garrett DNP Primary Care Provider Reason for Visit * Consultation (Routine) - Specialty Diagnoses / Procedures Referred By Contsubhash t Referred To Contact Nephrology Diagnoses Abnormal results of kidney function studies Chronic kidney disease, stage 3 (moderate) Ramsey Garrett DNP [address] [place] [address] [facility] [address] [place] [id number] Referral ID Status Reason Start Date Expiration Date V isits Requested Visits Authorized [id number] Consult, Test & Treat Connection Center 05/01/2019 08/01/2019 6 6 Encounter Details Date Type Department Care Team (Latest Contact Info) Description 06/15/2019 10:30 AM EDT Office Visit Neph[place] [address] Justina Mccoy MD [facility] [place] [address] Urinary tract infection without hematuria, site unspecified; Elevated serum creatinine Social History Tobacco Use Types Packs/Day Years Used Date Smoking Tobacco: Former Smokeless Tobacco: Never Sex and Gender Information Value Date Recorded Sex Assigned at Not on file Gender Identity Not on file Sexual Orientation Not on file documented as of this encounter Last Filed Vital Signs Vital Sign Reading [...] Mass Index 26.64 06/15/2019 10:10 AM EDT documented in this encounter Progress Notes * Justina Mccoy MD - 06/15/2019 10:30 AM EDT Renal and Hypertension New Patient Visit 06/15/2019 History of Presenting Complaint including relevant review of systems. The referring documents were reviewed. Additional data were obtained from the [facility] records (eDH and CIS) and the referring physician's office. This is a new patient visit to the Renal and Hypertension clinic for this 69 y.o. year old female referred by Ramsey Garrett APRN for evaluation of increased serum creatinine: 1.12 mg/dL January 2019, 1.15 mg/dL March 2019, today's result pending. Noted that during the months of February and March patient had complex urinary tract infection treated with antibiotics. She reports that she developed systemic symptoms without lower urinary tract infection symptoms. There was a remote history of documented urinary tract infection, none recent. There is no history of identified primary renal disease, nephrolithiasis, hematuria, edema, gout, collagen vascular disease. Patient is 2 para 2 with no complications of other than for disproportion. There is no history of diabetes. There is a history of hypertension well- controlled on MYA inhibitor for the past 4 years she denies medication side effects. There is no history of myocardial infarction, stroke, TIA, intermittent claudication, chest pain on exertion, orthopnea, paroxysmal nocturnaldyspnea. Additional Past Medical History Patient Active Problem List Diagnosis Code ??? Cervical spondylosis without myelopathy M47.812 ?? Cholecystectomy, appendectomy, tonsillectomy ?? Campos's esophagus ?? Colitis unspecified type, treated x1 with prednisone, resolved Family history Mother at 88, Alzheimer's disease Father at 76, coronary artery disease Sibs 5 brothers, 4 sisters. 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 melatonin 10 mg Capsule Take 10 mg by mouth nightly. ??? diphenhydrAMINE (BENADRYL) 25 mg Capsule Take 25 mg by mouth every 6 hours as needed for Itching or Sleep. ??? cholecalciferol, Vitamin D3, 2,000 unit Capsule Take 2,000 Units by mouth daily. ??? Cranberry 500 mg Capsule Take 500 mg by mouth daily. ??? esomeprazole (NEXIUM) 20 mg Capsule, Delayed Release(E.C.) Take 20 mg by mouth every morning (before breakfast). ??? OMEGA-3S/DHA/EPA/FISH OIL (OMEGA 3 ORAL) Take 500 mg by mouth daily. ??? PLANT STANOL SHERRIE (CHOLEST OFF ORAL) Take by mouth daily. ??? lisinopril (PRINIVIL;ZESTRIL) 10 mg Tablet Take 10 mg by mouth daily. No current facility-administered medications for this visit. No NSAIDs. No OTCs or supplements Review of Systems Complete review of systems is negative apart from relevant positives and negatives listed above On examination This is a well- appearing 69 y.o. female in no acute distress Blood pressure 128/59, pulse 60, height 154.9 cm (5' 1), weight 64 kg (141 lb), SpO2 100 %. Body mass index is 26.64 kg/m??. There is no uremic fetor and no asterixis The head is normal There is no conjunctival pallor The hands and nails are unremarkable The oropharynx appears normal. Dentition is fair There is no jugular venous distention There is no peripheral edema and no sacral edema The heart sounds are S1 + S2 with no rubs, murmurs or gallops The Breath sounds are vesicular throughout with no added sounds The thoracic and lumbar spine is non tender to percussion along its length The abdomen is soft and nontender. There is no costovertebral angle tenderness. No masses or organsare palpated The carotid, brachial, dorsalis pedis and posterior tibial pulses are present and equal without bruits. There are no abdominal bruits Gait is normal. Facies symmetrical. PONCHO, Mentation and speech are normal Skin: No rash, no lesions Labs: Reviewed outside laboratory values and data available in eDH. Notable for as above Basic metabolic panel, SPEP, uric acid pending today Radiology studies: No renal imaging: Ultrasound ordered at [place] Urinalysis and microscopy: Renal clinic laboratory Urine dipstick: negative for blood, protein, leucocytes. Urine microalbumin pending Urine microscopy: Low and High power vincent Negative for cells,casts, crystals Assessment and Recommendations 1. Marginally elevated serum creatinine in the setting urinary tract infection. Unclear if this represents early stage III chronic kidney disease with possible component of underlying structural disease versus acute kidney injury in the setting of antibiotic treatment of complex urinary tract infection. Labs today and renal ultrasound are pending. I will follow-up with the patient for this. 2. Hypertension well controlled. Recommend continue current medication. 3. I have asked the patient to have medications renewed by your office as needed 4. Return to clinic as needed Thank you for referring this interesting patient Addendum: June 19, 2019 Results for ROSMERY BOND I ( ) as of 06/19/2019 11:02 Ref. Range 06/15/2019 10:30 06/15/2019 11:15 Sodium Latest Ref Range: 135 - 145 mmol/L 140 Potassium Latest Ref Range: 3.5 - 5.0 mmol/L 4.3 Chloride Latest Ref Range: 98 - 107 mmol/L 104 CO2 Latest Ref Range: 22 - 31 mmol/L 28 Anion Gap Latest Ref Range: 5 - 15 mmol/L 8 BUN Latest Ref Range: 8 - 18 mg/dL 17 Creatinine Latest Ref Range: 0.70 - 1.20 mg/dL 1.01 eGFR Latest Ref Range: >=60 mL/min/1.73 m?? 57 (L) eGFR Latest Ref Range: >=60 mL/min/1.73 m?? 66 Glucose Lvl Latest Ref Range: 65 - 199 mg/dL 101 Calcium Latest Ref Range: 8.5 - 10.5 mg/dL 9.8 Total Prot Elec Latest Ref Range: 6.1 - 8.0 gm/dL 7.7 Albumin Elect Latest Ref Range: 3.60 - 6.00 gm/dL 4.71 Alpha1-Globulin Latest Ref Range: 0.10 - 0.30 gm/dL 0.19 Alpha2-Globulin Latest Ref Range: 0.40 - 0.90 gm/dL 0.81 Beta Globulin Latest Ref Range: 0.50 - 1.00 gm/dL 0.89 Gamma Globulin Latest Ref Range: 0.50 - 1.30 gm/dL 1.09 M1 Band Latest Ref Range: None Detected None Detected Alb/Cr Ratio, Random Latest Ref Range: 0 - 29 mcg/mg Cr Not Calculated U Albumin Conc, Random Latest Units: mg/L <3.0 U Creatinine Latest Units: mg/dL 19 Repeat labs show normal renal function. There is no evidence of myeloma protein. Letter sent to patient. documented in this encounter Miscellaneous Notes * Addendum Note - Fidel Rick CMA - 06/15/2019 10:30 AM EDTAddended by: FIDEL RICK on: 06/15/2019 11:26 AM Modules accepted: Orders documented in this encounter Plan of Treatment Upcoming Encounters Date Type Department Care Team (Latest Contact Info) Description 05/18/2024 12:21 PM EDT Hospital Encounter [place] [address] Lai Cohen MD [facility] [place] [address] 05/18/2024 12:21 PM EDT - 05/18/2024 1:06 PM EDT Surgery [place] [address] Lai Cohen MD [facility] [place] [address] CATARACT EXTRACTION, EXTRACAPSULAR, W/ LENS INSERTION (WRVU 7.35) 05/19/2024 12:30 PM EDT Office [place] [address] Lai Cohen MD [facility] [place] [address] 05/26/2024 3:15 PM EDT Office [place] [phone] Lai Cohen MD [facility] [place] [address] 06/13/2024 8:45 AM EDT Office [place] [address] Lai Cohen MD [facility] [place] [address] Scheduled Procedures Name Priority Associated Diagnoses Date/Ti me CATARACT EXTRACTION, EXTRACAPSULAR, W/ LENS INSERTION (WRVU 7.35) Cataract 05/18/2024 12:21 PM EDT documented as of this encounter Procedures Procedure Name Priority Date/Time Associated Diagnosis Comments HC VENIPUNCTURE Routine 06/15/2019 11:15 AM EDT Urinary tract infection without hematuria, site unspecified Elevated serum creatinine BASIC METABOLIC PANEL (NON-FASTING) Routine 06/15/2019 11:15 AM EDT Urinary tract infection without hematuria, site unspecified Elevated serum creatinine HC MICROALBUMIN, URINE Routine 06/15/2019 10:30 AM EDT Urinary tract infection without hematuria, site unspecified documented in this encounter Results * Protein Electrophoresis, serum (06/15/2019 11:15 AM EDT) Total Prot Elec 7.7 6.1 - 8.0 gm/dL [facility] Albumin Elect 4.71 3.60 - 6.00 gm/dL [facility] Alpha1-Globul in 0.19 0.10 - 0.30 gm/dL [facility] Alpha2-Globul in 0.81 0.40 - 0.90 gm/dL [facility] Beta Globulin 0.89 0.50 - 1.00 gm/dL [facility] Gamma Globulin 1.09 0.50 - 1.30 gm/dL [facility] M1 Band None Detected None Detected [facility] Blood specimen (specimen) 06/15/2019 11:15 AM EDT 06/15/2019 11:36 AM EDT Narrative Resulting Agency Comment Spec In Lab Justina Mccoy MD CHEMISTRY ORDERABLES [facility] [place] [address] * (ABNORMAL) Basic Metabolic Panel (non-fasting) (06/15/2019 11:15 AM EDT) Glucose Lvl 101 65 - 199 mg/dL [facility] Comment:Diabetes: >=200 mg/d L plus symptoms BUN 17 8 - 18 mg/dL [facility] Creatinine 1.01 0.70 - 1.20 mg/dL [facility] Sodium 140 135 - 145 mmol/L [facility] Potassium 4.3 3.5 - 5.0 mmol/L [facility] Comment: Please note: ??Patients with WBC >100,000 may have falsely elevated Potassium levels. ??For accurate Potassium quantification in these patients send serum separator tube (gold top) for subsequent determinations. ??Contact the Clinical Chemistry Laboratory if there are any questions. Chloride 104 98 - 107 mmol/L [facility] CO2 28 22 - 31 mmol/L [facility] Anion Gap 8 5 - 15 mmol/L [facility] Calcium 9.8 8.5 - 10.5 mg/dL [facility] Estimated GFR 57(L) >=60 mL/min/1. 73 m?? [facility] Comment: The eGFR was calculated using the CKD-EPI equation. As with all creatinine based estimates of kidney function, eGFR values calculated with the CKD-EPI equation are not accurate in patients with acute kidney failure, extremes of body mass or the acutely ill. http://[email or web address] eGFR 66 >=60 mL/min/1. 73 m?? [facility] Comment: The eGFR was calculated using the CKD-EPI equation. As with all creatinine based estimates of kidney function, eGFR values calculated with the CKD-EPI equation are not accurate in patients with acute kidney failure, extremes of body mass or the acutely ill. http://[email or web address] Blood specimen (specimen) 06/15/2019 11:15 AM EDT 06/15/2019 11:36 AM EDT Narrative Resulting Agency Comment Spec In Lab Justina Mccoy MD CHEMISTRY ORDERABLES [facility] [place] [address] * U Albumin/Cre Ratio (06/15/2019 10:30 AM EDT) Alb/Cr Ratio, Random Not Calculated 0 - 29 mcg/mg Cr [facility] Comment: Reference Ranges: <30 mcg/mg: Normal 30-300 mcg/mg: Moderately increased albuminuria.* >300 mcg/mg: Severely increased albuminuria. * ACEI or ARB recommended if diabetic; suggested if BP>130/80 without diabetes ACEI or ARB strongly recommended if diabetic; recommended if BP>130/80 without diabetes Two of three specimens collected within a 3 to 6 month period should be abnormal before considering a patient to have albuminuria. Transient causes: exercise, fever, infection, CHF, marked hyperglycemia or hypertension. Persistent albuminuria indicates CKD and is an independent risk factor for ASCVD. ADA Standards of Medical Care in Diabetes-2016; KDIGO: Kidney International Supplements (2012) 2, 357? 362 U Albumin Conc, Random <3.0 mg/L [facility] U Creatinine 19 mg/dL [facility] Urine specimen (specimen) 06/15/2019 10:30 AM EDT 06/15/2019 11:36 AM EDT Narrative Resulting Agency Comment Spec In Lab Justina Mccoy MD URINE ORDERABLES [facility] [place] [address] documented in this encounter Visit Diagnoses Diagnosis Urinary tract infection without hematuria, site unspecified Elevated serum creatinine Other nonspecific findings on examination of blood documented in this encounter Care Teams Rock Picker Relationship Specialty Start Date End Date Ramsey Garrett DNP [address] [place] [id number] PCP - General Family Medicine 03/16/19 03/13/24 documented as of this encounter
--- OUTSIDE RECORDS SUMMARY | 2024-05-11 01:52 | XMS_ITS | Encounter Summary ---
Author Organization [facility] Address [facility] [place] [id number] Care Team Providers Care Hydraulic Press Tender Name Role Phone Christin Niño ORLIN Primary Care Provider [phone]- [phone] Encounter Details Date Type Department Care Team (Late st Contact Info) Description 04/12/2014 Orders Only Spine Center at [place] [phone] Abner Macias MD [facility] [place] [address] Social History Tobacco Use Types Packs/Day Years [...] PM EDT Hospital Encounter [place] [phone] Lai Cohen MD [facility] [place] [address] 05/18/2024 12:21 PM EDT - 05/18/2024 1:06 PM EDT Surgery [place] [phone] Lai Cohen MD [facility] [place] [address] CATARACT EXTRACTION, EXTRACAPSULAR, W/ LENS INSERTION (WRVU 7.35) 05/19/2024 12:30 PM EDT Office Visit Ophthalmology at [place] [phone] Lai Cohen MD [facility] [place] [address] 05/26/2024 3:15 PM EDT Office [place] [address] Lai Cohen MD [facility] [place] [address] 06/13/2024 8:45 AM EDT [place] [address] Lai Cohen MD [facility] [place] [address] Scheduled Procedures Name Priority Associated Diagnoses Date/Ti me CATARACT EXTRACTION, EXTRACAPSULAR, W/ LENS INSERTION (WRVU 7.35) Cataract 05/18/2024 12:21 PM EDT documented as of this encounter Procedures Procedure Name Priority Date/Time Associated Diagnosis Comments FILM LIBRARY STORAGE ONLY DX SPINE Routine 04/12/2014 11:37 AM EDT documented in this encounter Results * Film Library- Storage only DX Spine (04/12/2014 11:37 AM EDT) Anatomical Region Laterality Modality Other 04/12/2014 11:3 7 AM EDT Narrative 05/31/2014 11:37 AM EDT This is a Non-reportable exam Procedure Note 05/31/2014 This is a Non-reportable exam Abner A Abdu MD [facility] FILM LIBRARY ORD ERABLES documented in this encounter Visit Diagnoses Not on filedocumented in this encounter Care Teams Hydraulic Press Tender Relationship Specialty Start Date End Date Christin Niño APRN PCP - General 05/30/14 12/20/16 documented as of this encounter
--- OUTSIDE RECORDS SUMMARY | 2024-05-11 01:52 | XMS_ITS | Encounter Summary ---
Author Organization [facility] Address [facility] [place] [id number] Care Team Providers Care Farmworker Fur Name Role Phone Christin Niño ORLIN Primary Care Provider [phone]- [phone] Encounter Details Date Type Department Care Team (Late st Contact Info) Description 05/25/2014 Orders Only Spine Center at [place] [phone] Abner Macias MD [facility] [place] [address] Social History Tobacco Use Types Packs/Day Years [...] PM EDT Hospital Encounter Outpatient [place] [phone] Lia Cohen MD [facility] [place] [address] 05/18/2024 12:21 PM EDT - 05/18/2024 1:06 PM EDT Surgery [place]patient [place] [phone] Lai Cohen MD [facility] [place] [address] CATARACT EXTRACTION, EXTRACAPSULAR, W/ LENS INSERTION (WRVU 7.35) 05/19/2024 12:30 PM EDT Office Visit Ophthalmology at [place] [phone] Lai Cohen MD [facility] [place] [address] 05/26/2024 3:15 PM EDT [place] [address] Lai Cohen MD [facility] [place] [address] 06/13/2024 8:45 AM EDT [place] [address] Lai Cohen MD [facility] [place] [address] Scheduled Procedures Name Priority Associated Diagnoses Date/Ti me CATARACT EXTRACTION, EXTRACAPSULAR, W/ LENS INSERTION (WRVU 7.35) Cataract 05/18/2024 12:21 PM EDT documented as of this encounter Procedures Procedure Name Priority Date/Time Associated Diagnosis Comments FILM LIBRARY STORAGE ONLY MR SPINE Routine 05/25/2014 11:37 AM EDT documented in this encounter Results * Film Library- Storage only MR Spine (05/25/2014 11:37 AM EDT) Anatomical Region Laterality Modality Other 05/25/2014 11:3 7 AM EDT Narrative 05/31/2014 11:37 AM EDT This is a Non-reportable exam Procedure Note 05/31/2014 This is a Non-reportable exam Abner A Abdu MD [facility] FILM LIBRARY ORD ERABLES documented in this encounter Visit Diagnoses Not on filedocumented in this encounter Care Teams Farmworker Fur Relationship Specialty Start Date End Date Christin Niño APRN PCP - General 05/30/14 12/20/16 documented as of this encounter
--- OUTSIDE RECORDS SUMMARY | 2024-05-11 01:52 | XMS_ITS | Encounter Summary ---
Author Organization [facility] [place] [address] Care Team Providers Care Bioanalyst Name Role Phone Ramsey Garrett DNP Primary Care Provider Encounter Details Date Type Department Care Team (Late st Contact Info) Description 06/16/2019 6:30 PM EDT Ancillary Procedure [place] [address] Justina Mccoy MD [facility] [place] [address] Social History Tobacco Use Types Packs/Day Years [...] PM EDT Hospital Encounter Outpatient [place] [address] Lai Cohen MD [facility] [place] [address] 05/18/2024 12:21 PM EDT - 05/18/2024 1:06 PM EDT Surgery Outpatient [place] [address] Lai Cohen MD [facility] [place] [address] CATARACT EXTRACTION, EXTRACAPSULAR, W/ LENS INSERTION (WRVU 7.35) 05/19/2024 12:30 PM EDT [place] [address] Lai Cohen MD [facility] [place] [address] 05/26/2024 3:15 PM EDT [place] [address] Lai Cohen MD [facility] [place] [address] 06/13/2024 8:45 AM EDT [place] [address] Lai Cohen MD [facility] [place] [address] Scheduled Procedures Name Priority Associated Diagnoses Date/Ti me CATARACT EXTRACTION, EXTRACAPSULAR, W/ LENS INSERTION (WRVU 7.35) Cataract 05/18/2024 12:21 PM EDT documented as of this encounter Procedures Procedure Name Priority Date/Time Associated Diagnosis Comments FILM LIBRARY STORAGE ONLY ULTRASOUND STUDY Routine 06/16/2019 6:29 PM EDT documented in this encounter Results * Film Library- Storage Only Ultrasound Study (06/16/2019 6:29 PM EDT) Narrative [facility] - 06/16/2019 6:29 PM EDT This exam is auto-finalizing. It's purpose is for storage only. Justina Mccoy MD IMG FILM LIBRARY ORD ERABLES [facility] [place] documented in this encounter Visit Diagnoses Not on filedocumented in this encounter Care Teams Bioanalyst Relationship Specialty Start Date End Date Ramsey Garrett DNP [address] [place] [address] PCP - General Family Medicine 03/16/19 03/13/24 documented as of this encounter
--- OUTSIDE RECORDS SUMMARY | 2024-05-11 01:52 | XMS_ITS | Encounter Summary ---
Author Organization [facility] Address [facility] [place] [address] Care Team Providers Care Extruder Operator Helper Name Role Phone Ramsey Garrett DNP Primary Care Provider Reason for Visit * Consultation (Routine) - Specialty Diagnoses / Procedures Referred By Tg diaz Referred To Contact Dermatology Diagnoses Other seborrheic keratosis Other specified disorders of the skin and subcutaneous tissue Ramsey Garrett DNP [address] [place] [address] [facility] Dermatology [address] [place] [address] Referral ID Status Reason Start Date Expiration Date V isits Requested Visits Authorized [id number] Consult, Test & Treat Connection Center PCP Updated and/or Approved 04/30/2020 06/11/2020 6 6 Encounter Details Date Type Department Care Team (Late st Contact Info) Description 06/05/2020 4:00 PM EDT Office Visit Dermatology at [facility] [address] [place] [address] Yuval Finley MD [facility] [place] [address] Actinic keratoses (Primary Dx) Social History Tobacco Use Types Packs/Day Years Used Date Smoking Tobacco: Former Smokeless Tobacco: Never Sex and Gender Information Value Date Recorded Sex Assigned at Not on file Gender Identity Not on file Sexual Orientation Not on file documented as of this encounter Progress Notes * Yuval Finley MD - 06/05/2020 4:00 PM EDT Images from the original note were not included. Dermatology Dermatology at [facility] FOLLOW-UP - ACUTE Chief Complaint: Lesions on face History of Present Illness Rosmery Hernandez is a 70 y.o. female who presents with the following concerns: ?? Lesion on the right cheek that is scaly and does not heal. Noticed 6 months ago. No itching, burning or bleeding. Never been treated or biopsied. ?? Similar lesion on the left yazidism that is tender. Present for 1 month. No itching, burning or bleeding. Never been treated or biopsied. Interval changes to Medications and Medical, Family and Social Histories (including alcohol and tobacco use) Since Last Visit 05/09/2019: No significant interval history. Skin Cancer History No personal history of skin cancer Allergies Sulfa (sulfonamide antibiotics) Medications has a current medication list which includes the following prescription(s): melatonin, diphenhydramine, cholecalciferol (vitamin d3), cranberry, esomeprazole, omega-3s/dha/epa/fish oil, plant stanol miko, and lisinopril. Social History Tobacco: Quit in 1998 Alcohol: None Marital Status: # of Children: 2 Occupation: Retired Review of Systems Significant for no pertinent and acute changes in constitutional, other skin systems upon specific queries. Examination Standby: Ekta Jurado Mood is appropriate. Well developed, well-nourished in no apparent distress, alert and oriented to time, person, place and situation. Focused skin examination of the face, significant for the following: ?? [place], hyperkeratotic slightly irregular papules on the left yazidism x 1, right malar cheek x 1, right nasal tip x 1 [Total AK: 3] Assessment and Plan Actinic Keratoses Counseled: AKs, risk for progression to SCCs, and treatment options, including observation, cryotherapy, topicals, and PDT. Answered all questions. Handout given. ?? Total 3 treated with cryotherapy, 1 cycle at 5 seconds for each, after verbally discussing the disease and treatment options, cryotherapy method, expected results/course and potential adverse effects, including crusting, persistent erythema, scar, blister, pain, dyspigmentation, and recurrence. P atient verbally agreed. Patient tolerated well with no complications. Wound care instructions provided. If no resolution in 1 month or if scaling recurs after initial resolution, may contact clinic for re-evaluation and management. Follow-up: Face skin cancer examination in 6 months or return to clinic prn for new suspicious lesions or if changes/symptoms in existing lesions develop. Note initiated by VITALIY Urban has performed the documentation for this encounter in the presence of and acting as a scribe for Dr. Finley. I performed the above scribed service and agree with the accuracy of the documentation in this encounter. Yuval Finley MD [facility] Section of Dermatology [facility] documented in this encounter Plan of Treatment Upcoming Encounters Date Type Department Care Team (Latest Contact Info) Description 05/18/2024 12:21 PM EDT Hospital Encounter Outpatient [place] [address] Lai Cohen MD [facility] [place] [address] 05/18/2024 12:21 PM EDT - 05/18/2024 1:06 PM EDT Surgery Outpatient [place] [address] Lai Cohen MD [facility] [place] [address] CATARACT EXTRACTION, EXTRACAPSULAR, W/ LENS INSERTION (WRVU 7.35) 05/19/2024 12:30 PM EDT Office [place] [address] Lai Cohen MD [facility] [place] [address] 05/26/2024 3:15 PM EDT Office [place] [address] Lai Cohen MD [facility] [place] [address] 06/13/2024 8:45 AM EDT Office [place] [address] Lai Cohen MD [facility] [place] [address] Scheduled Procedures Name Priority Associated Diagnoses Date/Ti me CATARACT EXTRACTION, EXTRACAPSULAR, W/ LENS INSERTION (WRVU 7.35) Cataract 05/18/2024 12:21 PM EDT documented as of this encounter Visit Diagnoses Diagnosis Actinic keratoses- Primary Actinic keratosis documented in this encounter Care Teams Extruder Operator Helper Relationship Specialty Start Date End Date Ramsey Garrtet DNP [address] [place] [id number] PCP - General Family Medicine 03/16/19 03/13/24 documented as of this encounter
--- OUTSIDE RECORDS SUMMARY | 2024-05-11 01:52 | XMS_ITS | Encounter Summary ---
Author Organization [facility] [place] [address] Care Team Providers Care Environment Artist Name Role Phone Ramsey Garrett DNP Primary Care Provider Encounter Details Date Type Department Care Team (Latest Contact Info) Description 09/07/2023 Travel Social History Tobacco Use Types Packs/Day [...] PM EDT Hospital Encounter Outpatient [place] [address] Lai Cohen MD [facility] [place] [address] 05/18/2024 12:21 PM EDT - 05/18/2024 1:06 PM EDT Surgery [place]patient [place] [address] Lai Cohen MD [facility] [place] [address] CATARACT EXTRACTION, EXTRACAPSULAR, W/ LENS INSERTION (WRVU 7.35) 05/19/2024 12:30 PM EDT Office [place] [address] Lai Cohen MD [facility] [place] [address] 05/26/2024 3:15 PM EDT Office [place] [address] Lai Cohen MD [facility] [place] [address] 06/13/2024 8:45 AM EDT Office [place] [address] Lai Cohen MD [facility] [place] [address] Scheduled Procedures Name Priority Associated Diagnoses Date/Ti me CATARACT EXTRACTION, EXTRACAPSULAR, W/ LENS INSERTION (WRVU 7.35) Cataract 05/18/2024 12:21 PM EDT documented as of this encounter Visit Diagnoses Not on filedocumented in this encounter Care Teams Environment Artist Relationship Specialty Start Date End Date Ramsey Garrett DNP [address] [place] [address] PCP - General Family Medicine 03/16/19 03/13/24 documented as of this encounter
--- OUTSIDE RECORDS SUMMARY | 2024-05-11 01:52 | XMS_ITS | Encounter Summary ---
[place] [address] Care Team Providers Care Magnetometer Operator Name Role Phone Christin Niño Samantha ORDAZ Primary Care Provider [phone] Reason for Visit * Reason Comments Neck And Back Pain Encounter Details Date Type Department Care Team (Late st Contact Info) Description 06/28/2014 9:15 AM EDT Office [place] [address] Megha Carrero APRN [facility] [place] [address] Cervical spondylosis without myelopathy (Primary Dx) Discharge Disposition: Home Social History Tobacco Use Types Packs/Day Years Used Date Smoking Tobacco: Former Smokeless Tobacco: Never Sex and Gender Information Value Date Recorded Sex Assigned at Not on file Gender Identity Not on file Sexual Orientation Not on file documented as of this encounter Last Filed Vital Signs Vital Sign Reading Time Taken Comments Blood Pressure 122/72 06/28/2014 9:59 AM EDT Pulse - - Temperature - - Respiratory Rate - - Oxygen Saturation - - Inhaled Oxygen Concentration - - Weight 65.8 kg (145 lb) 06/28/2014 9:59 AM EDT Height 154.9 cm (5' 1) 06/28/2014 9:59 AM EDT Body Mass Index 27.4 06/28/2014 9:59 AM EDT documented in this encounter Progress Notes * Megha Carrero APRN - 06/28/2014 10:14 AM EDT CHIEF COMPLAINT: Neck pain and upper back pain with diffuse paresthesias in bilateral arms/hands. HISTORY OF PRESENT ILLNESS: Rosmery Hernandez is a 64 y.o. right hand dominant female seen in the Sp[facility] Center today in consultation for Christin Niño APRN (PCP). She is accompanied by her daughter and 2 toddler grandchildren today and presents with a chief complaint of neck pain and upper back painwith paresthesias in bilateral hands, which has all been present for several years but increased inintensity over the last several months. The diffuse burning, tingling sensation in bilateral arms and hands that increases at night and keeps her awake is more bothersome to her than her neck/upper back pain. Current pain level is 7/10 and can rise as high as 10/10. Treatments to date have included: Chiropractor-no relief, PT-no relief, massage therapy-no relief, and Vicodin-helpful. REVIEW OF SYSTEMS: negative for GI or symptoms, fevers, chills, night sweats, weight loss or loss of bowel or bladder control. She denies myelopathic symptoms such as gait disturbance, gait imbalance, or difficulty with fine motor control. She denies any dysphagia. She has difficulty sleeping due to her pain. PAST MEDICAL HISTORY: Fibromyalgia, osteopenia, hypertension and hyperlipidemia. PAST SURGICAL HISTORY: 2 sections, hysterectomy, appendectomy, tonsillectomy, cholecystectomy, bilateral trigger finger release, bilateral thumb surgery, and surgery to correct amblyopia as a child. FAMILY HISTORY: Significant for breast cancer. SOCIAL HISTORY: She has been on SSDI since 1999 for back pain and fibromyalgia. She is a former smoker and drinks alcohol occasionally. MEDICATIONS & ALLERGIES: reviewed with the patient and are in eD-H. PHYSICAL EXAMINATION: Height: 5'1. Weight: 145 lbs. BMI: 27.5. This is a thin older adult female in no acute distress. She ambulates with a steady gait. She is able to walk on her heels and toes without weakness. She is able to perform tandem heel-toe walk without ataxia. Her cervical spine, cervical paraspinals and bilateral AC joints are tender to palpation.Cervical flexion is 50 degrees and pain free. Cervical extension is 45 degrees and mildly painful. Right cervical rotation is 70 degrees and pain free. Left cervical rotation is 70 degrees and pain free. Right cervical lateral flexion is 35 degrees and pain free. Left cervical lateral flexion is 35degrees and pain free. Sustained Spurling's maneuver is negative bilaterally. Senior Technical Program Manager strength and thumb strength are 5/5 bilaterally. Strength is 5/5 in all other upper extremity muscles groups. Touch sensation is normal and symmetrical in bilateral upper extremities. Triceps deep tendon reflexes are2/4 bilaterally. Biceps deep tendon reflexes are trace bilaterally. Brachioradialis deep tendon reflexes are trace bilaterally. There is no clonus. Babinski is with down-going toes bilaterally. Roxanne's sign is absent bilaterally. Lhermitte's sign is absent. There is no scapular winging. Shoulderrange of motion is full and pain free with a negative Empty Can Test and no supraspinatus weakness bilaterally. Phalen's, Tinel's and percussion of the ulnar nerve all do not reproduce her symptoms bilaterally. IMAGIN05/25/14 Cervical MRI w/o contrast: Spinal cord appears of normal diameter and shows normal signal throughout. There is prominence of adisc osteophyte complex on the left at C3-4, with minimal associated cord deformity. There is also prominence of a disc osteophyte complex at C4-5 which is broad-based but most prominent on the left.Again, minimal cord deformity may be present at this site. Borderline central canal stenosis at C3-4 and C4-5 but there does appear to be a small quantity of CSF both anterior and posterior to the cord. No significant neural foraminal narrowing. ASSESSMENT: Cervical spondylosis in the setting of fibromyalgia. PLAN: 1) Non-surgical options including PT, NSAIDs, FRP and injections (such as CHRIS and cervical MBB/RFL) were reviewed with the patient. 2) I have given her a prescription for gabapentin with 1 refill and advised her to f/u with her PCPfor future refills. I did give her an instruction sheet with directions on how to gradually increase the dose and advised her no abrupt cessation. We also discussed Lyrica or Cymbalta may also be helpful at reducing fibromyalgia symptoms and paresthesias in her upper extremities if she does not receive relief from the gabapentin. 3) I have suggested that she have another EMG/NCS of her upper extremities given the diffuse natureof her paresthesias and decreased deep tendon reflexes in bilateral upper extremities. She reports she had EMG/NCS of her upper extremities a few years ago to check for carpal tunnel syndrome, which did not show any abnormalities, but her symptoms have extended into her arms now. We discussed the EMG/NCS could be done by a neurologist closer to home and may help clarify a diagnosis but would not greatly alter the treatment plan. She is not enthused about having this test done again and would like to trial the gabapentin first. Follow-Up: As needed. If she decides she would like to pursue an injection, she is aware she may call us and I would be happy to place that referral. All questions were answered and the patient is in agreement with the above treatment plan. This was a counseling dominated visit with approximately 25 minutes of this 40 minute encounter spent in face to face counseling, medical decision making, and review of imaging and treatment options. Thank you for the opportunity to participate in the care of this patient. Megha Carrero MS, ORLIN, MACHINE SPREADER-C [facility] documented in this encounter Plan of Treatment Upcoming Encounters Date Type Department Care Team (Latest Contact Info) Description 05/18/2024 12:21 PM EDT Hospital Encounter [place] [address] Lai Cohen MD [facility] [place] [address] 05/18/2024 12:21 PM EDT - 05/18/2024 1:06 PM EDT Surgery [place] [address] Lai Cohen MD [facility] [place] [address] CATARACT EXTRACTION, EXTRACAPSULAR, W/ LENS INSERTION (WRVU 7.35) 05/19/2024 12:30 PM EDT Office [place] [address] Lai Cohen MD [facility] [place] [address] 05/26/2024 3:15 PM EDT Office [place] [address] Lai Cohen MD [facility] [place] [address] 06/13/2024 8:45 AM EDT Office [place] [address] Lai Cohen MD [facility] [place] [address] Scheduled Procedures Name Priority Associated Diagnoses Date/Ti me CATARACT EXTRACTION, EXTRACAPSULAR, W/ LENS INSERTION (WRVU 7.35) Cataract 05/18/2024 12:21 PM EDT documented as of this encounter Visit Diagnoses Diagnosis Cervical spondylosis without myelopathy- Primary documented in this encounter Care Teams Magnetometer Operator Relationship Specialty Start Date End Date Christin Niño APRN PCP - General 05/30/14 12/20/16 documented as of this encounter
--- OUTSIDE RECORDS SUMMARY | 2024-05-11 01:52 | XMS_ITS | Encounter Summary ---
Author Organization [facility] Address [facility] [place] [address] Care Team Providers Care It Compliance Manager Name Role Phone Ramsey Garrett DNP Primary Care Provider Reason for Visit * Reason Comments Follow-up * Consultation (Routine) - Specialty Diagnoses / Procedures Referred By Tg diaz Referred To Contact Dermatology Diagnoses Other seborrheic keratosis Other specified disorders of the skin and subcutaneous tissue seborrheic keratotis multiple skin lesions Ramsey Garrett, ZEYAD [address] [place] [address] [facility] D[facility]at[facility] [address] [place] [address] Referral ID Status Reason Start Date Expiration Date V isits Requested Visits Authorized [id number] Consult, Test & Treat Connection Center 03/16/2019 03/15/2020 6 6 Encounter Details Date Type Department Care Team (Late st Contact Info) Description 05/09/2019 1:45 PM EDT Office Visit Dermatology at [facility] [address] [place] [address] Yuval Finley MD [facility] DR [place]FF [place] [address] Actinic keratoses; Seborrheic keratoses, inflamed; Seborrheic keratoses Social History Tobacco Use Types Packs/Day Years Used Date Smoking Tobacco: Former Smokeless Tobacco: Never Sex and Gender Information Value Date Recorded Sex Assigned at Not on file Gender Identity Not on file Sexual Orientation Not on file documented as of this encounter Progress Notes * Yuval Finley MD - 05/09/2019 1:45 PM EDT Images from the original note were not included. DERMATOLOGY [place], [place] CONSULT Reason for Consultation: Multiple skin lesions Date of Consultation: 05/09/19 Consult Requested by: Ramsey Garrett, Sales Developer [address] [place] [address] Chief Complaint: Lesions History of Present Illness Rosmery Hernandez is a 69 y.o. female who presents with the following concerns: ?? Scaly, itchy lesions on the face. Never been treated or biopsied, but patient is concerned that they are actinic keratoses. ?? Brown, itchy lesion on the left uatsdin. Never been treated or biopsied. ?? Tender lesion on the chest that has been present for many years. Never been treated or biopsied. Review of Systems Significant for no pertinent and acute changes in constitutional, other skin systems upon specific queries. Skin Cancer History No personal history of skin cancer No family history of skin cancer Allergies Medications Patient has no known allergies. has a current medication list which includes the following prescription(s): hydrocodone-acetaminophen, calcium carb/vit d3/minerals, omega-3s/dha/epa/fish oil, plant stanol miko, aspirin, triamcinolone, lisinopril, and gabapentin. Past History Medical Surgical None None Family Medical History Rheumatoid arthritis Breast cancer Social History Tobacco: Quit in 1998 Alcohol: None Marital Status: # of Children: 2 Occupation: Retired Examination Standby: Bre Carlin Mood is appropriate. Well developed, well-nourished in no apparent distress, alert and oriented to time, person, place and situation. Focused skin examination of the face, left upper chest significant for the following: ?? Kinsman, hyperkeratotic, pigmented slightly irregular papules on the midline upper forehead x 1, dorsum nose x 1, left malar cheek x 1 [Total AK:3] ?? 11 x 14 mm, dark brown, stuck on, warty plaque on the left uatsdin. Dark brown, stuck on, 2-3 mm,warty papule on the left upper chest. ?? Scattered, stuck-on, well-demarcated, sanchez or brown, waxy or warty macules and patches c/w SKs onthe face Assessment and Plan Actinic Keratoses, Pigmented Counseled: AKs, risk for progression to SCCs, [...] care instructions provided. If no resolution in 21d or if scaling recurs after initial resolution, may contact clinic for re-evaluation and management. Inflamed Seborrheic Keratoses, Left uatsdin and left upper chest Benign. Symptomatic. Counseled: ISAlberto and Enoch, benign, treatment options for symptomatic lesions. Answered all questions.Handout given. ?? Total 1 (Left uatsdin) treated with cryotherapy, 2 cycles at 5 seconds each cycle with 30 secondsthaw interval for each, after verbally discussing the disease and treatment options, cryotherapy method, expected results/course and potential adverse effects, including crusting, persistent erythema, scar, blister, pain, dyspigmentation, and recurrence. Patient verbally agreed. Patient tolerated well with no complications. Wound care instructions provided. If no resolution in 21d or if scaling recurs after initial resolution, may contact clinic for re-evaluation and management. ?? Total 1 (Left upper chest) treated with cryotherapy, 1 cycle at 5 seconds for each, after verbally discussing the disease and treatment options, cryotherapy method, expected results/course and potential adverse effects, including crusting, persistent erythema, scar, blister, pain, dyspigmentation, and recurrence. Patient verbally agreed. Patient tolerated well with no complications. Wound careinstructions provided. If no resolution in 21d or if scaling recurs after initial resolution, may contact clinic for re-evaluation and management. Seborrheic Keratoses Benign. No treatment necessary. Counseled: Enoch, benign, treatment options for symptomatic lesions. Answered all questions. Handout given Patient Counseled [Skin Cancer] Counseled: sun protection, regular self skin exams, provider skin exams as needed, and the ABCDEs of melanoma/NMSC. Answered all questions. Handouts on how to do a self-exam, skin cancers and sun protection given to the patient. Follow-up: Return to clinic as needed for new suspicious lesions or if changes/symptoms in existinglesions develop. Note initiated by VITALIY Urban has performed the documentation for this encounter in the presence of and acting as a scribe for Dr. Finley. I performed the above scribed service and agree with the accuracy of the documentation in this encounter. Yuval Finley MD FAAD Section of Dermatology [facility] documented in this encounter Plan of Treatment Upcoming Encounters Date Type Department Care Team (Latest Contact Info) Description 05/18/2024 12:21 PM EDT Hospital Encounter Outpatient [place] [address] Lai Cohen MD [facility] DR [place] [address] 05/18/2024 12:21 PM EDT - 05/18/2024 1:06 PM EDT Surgery Outpatient [place] [address] Lai Cohen MD [facility] DR [place] [address] CATARACT EXTRACTION, EXTRACAPSULAR, W/ LENS INSERTION (WRVU 7.35) 05/19/2024 12:30 PM EDT Office [place] [address] Lai Cohen MD [facility] DR [place] [address] 05/26/2024 3:15 PM EDT Office [place] [address] Lai Cohen MD [facility] DR [place] [address] 06/13/2024 8:45 AM EDT Office [place] [address] Lai Cohen MD [facility] DR [place] [address] Scheduled Procedures Name Priority Associated Diagnoses Date/Ti me CATARACT EXTRACTION, EXTRACAPSULAR, W/ LENS INSERTION (WRVU 7.35) Cataract 05/18/2024 12:21 PM EDT documented as of this encounter Visit Diagnoses Diagnosis Actinic keratoses Actinic keratosis Seborrheic keratoses, inflamed Seborrheic keratoses documented in this encounter Care Teams It Compliance Manager Relationship Specialty Start Date End Date Ramsey Garrett DNP [address] [place] [address] PCP - General Family Medicine 03/16/19 03/13/24 documented as of this encounter
== END ==
PROVIDERS: Visit Provider Physician Assistant
DX: Z12.31 Encounter for screening mammogram for malignant neoplasm of breast (principal)
CPT/HCPCS: 77063; 77067

== ENCOUNTER 2024-05-11 16:52 | Outpatient (REF) | payer MEDICARE, SELFPAY ==
--- OUTSIDE RECORDS SUMMARY | 2024-05-11 16:55 | XMS_ITS | Encounter Summary ---
Author Organization [facility] [place] [address] Care Team Providers Care Activity Therapist Name Role Phone Ramsey Garrett DNP Primary Care Provider [phone] Encounter Details Date Type Department Care Team [...] PM EDT Hospital Encounter [place]patient [place] [address] Lai Cohen MD [facility] [place] [address] 05/18/2024 12:21 PM EDT - 05/18/2024 1:06 PM EDT Surgery [place] [address] Lai Cohen MD [facility] [place] [address] CATARACT EXTRACTION, EXTRACAPSULAR, W/ LENS INSERTION (WRVU 7.35) 05/19/2024 12:30 PM EDT Office [place] [address] Lai Cohen MD [facility] [place] [address] 05/26/2024 3:15 PM EDT Office [place] [address] Lai Cohen MD [facility] [place] [address] 06/13/2024 8:45 AM EDT Office [place] [address] Lai Cohen MD [facility] [place] [address] Scheduled Procedures Name Priority Associated Diagnoses Date/Ti me CATARACT EXTRACTION, EXTRACAPSULAR, W/ LENS INSERTION (WRVU 7.35) Cataract 05/18/2024 12:21 PM EDT documented as of this encounter Visit Diagnoses Not on filedocumented in this encounter Care Teams Activity Therapist Relationship Specialty Start Date End Date Ramsey Garrett DNP [address] [place] [address] PCP - General Family Medicine 03/16/19 03/13/24 documented as of this encounter
--- OUTSIDE RECORDS SUMMARY | 2024-05-11 16:55 | XMS_ITS | Encounter Summary ---
Author Organization [facility] Address [facility] [address] [place] [id number] Care Team Providers Care Leather Grader Name Role Phone Ramsey Garrett DNP Primary Care Provider [phone] Reason for Visit * Reason Comments Blurred Vision * Consultation (Routine) - Closed Specialty Diagnoses / Procedures Referred By Tg diaz Referred To Contact Ophthalmology Diagnoses CAT EVAL OD Bhargav, Shelli, OD [address] [place] [address] Lai Cohen MD [facility] [address] [place] [address] Referral ID Status Reason Start Date Expiration Date V isits Requested Visits Authorized [id number] Closed Consult, Test & Treat 07/29/2023 07/28/2024 1 1 Encounter Details Date Type Department Care Team (Late st Contact Info) Description 03/08/2024 2:15 PM EDT [place] [address] Lai Cohen MD [facility] DR OPHTHALMOLOGY DEPT. [place], [place] [id number] Cataract, unspecified cataract type, unspecified laterality; Amblyopia, [...] encounter Patient Instructions * Patient Instructions* Lai Coehn MD - 03/08/2024 2:15 PM EDT Medications: [...] PM EDT Hospital Encounter Outpatient [place] [address] Lai Cohen MD [facility] [address] [place] [address] 05/18/2024 12:21 PM EDT - 05/18/2024 1:06 PM EDT Surgery Outpatient [place] [address] Lai Cohen MD [facility] [address] [place] [address] CATARACT EXTRACTION, EXTRACAPSULAR, W/ LENS INSERTION (WRVU 7.35) 05/19/2024 12:30 PM EDT [place] [address] Lai Cohen MD [facility] [address] [place] [address] 05/26/2024 3:15 PM EDT [place] [address] Lai Cohen MD [facility] [place] [address] 06/13/2024 8:45 AM EDT [place] [address] Lai Cohen MD [facility] [place] [address] Scheduled Orders Name Type Priority Associated Diagnoses [...] childhood documented in this encounter Care Teams Leather Grader Relationship Specialty Start Date End Date Ramsey Garrett DNP [address] [place] [address] PCP - General Family Medicine 03/16/19 03/13/24 documented as of this encounter
--- OUTSIDE RECORDS SUMMARY | 2024-05-11 16:55 | XMS_ITS | Encounter Summary ---
Author Organization [facility] Address [facility] [place] [id number] Care Team Providers Care Priming Mixture Carrier Name Role Phone Christin Niño ORLIN Primary Care Provider [phone] Encounter Details Date Type Department Care Team (Late st Contact Info) Description 04/12/2014 Orders Only Sp[facility] at [place] [phone] Abner Macias MD [facility] [place] [address] Social History Tobacco Use Types Packs/Day Years [...] PM EDT Hospital Encounter [place]patient [place] [address] Lai Cohen MD [facility] DR [place] [address] 05/18/2024 12:21 PM EDT - 05/18/2024 1:06 PM EDT Surgery [place]patient [place] [address] Lai Cohen MD [facility] DR [place] [address] CATARACT EXTRACTION, EXTRACAPSULAR, W/ LENS INSERTION (WRVU 7.35) 05/19/2024 12:30 PM EDT Office Visit Ophthalmology at [place] [phone] Lai Cohen MD [facility] DR [place] [address] 05/26/2024 3:15 PM EDT [place] [address] Lai Cohen MD [facility] DR [place] [address] 06/13/2024 8:45 AM EDT [place] [address] Lai Cohen MD [facility] DR [place] [address] Scheduled Procedures Name Priority Associated Diagnoses Date/Ti [...] a Non-reportable exam Abner A Abdu MD [facility] LIBRARY ORD ERABLES documented in this encounter Visit Diagnoses Not on filedocumented in this encounter Care Teams Priming Mixture Carrier Relationship Specialty Start Date End Date Christin Niño APRN PCP - General 05/30/14 12/20/16 documented as of this encounter
--- OUTSIDE RECORDS SUMMARY | 2024-05-11 16:55 | XMS_ITS | Referral Summary ---
Author Organization [facility] Address [address] [place] [address] Care Team Providers Care Custodial Supervisor Name Role Phone Christin Niño NP Primary Care Provider [phone] Social History Tobacco Use Types Packs/Day Years [...] C Antibody Negative Negative 03/05/2022 11:48 EDT [facility] Blood VENOUS BLOOD / Unknown 03/03/2022 9:02 EDT 03/04/2022 16:56 EDT Provider Outr Resulting Lab CHEMISTRY & BLOOD GAS ORDERABLES [facility] [address] [place] [address] from Last 3 Months or Most Recently Relevant to Health Maintenance Care Teams Custodial Supervisor Relationship Specialty Start Date End Date Christin Niño NP PCP - General 04/08/17
--- OUTSIDE RECORDS SUMMARY | 2024-05-11 16:55 | XMS_ITS | Encounter Summary ---
Author Organization [facility] Address [facility] [place] [id number] Care Team Providers Care Transmission Builder Name Role Phone Christin Niño ORLIN Primary Care Provider [phone] Encounter Details Date Type Department Care Team (Late st Contact Info) Description 05/25/2014 Orders Only Spine Center at [place] [phone] Abner Macias MD [facility] [place] [address] Social History Tobacco Use Types Packs/Day Years [...] PM EDT Hospital Encounter [place]patient [place] [address] Lai Cohen MD [facility] [place] [address] 05/18/2024 12:21 PM EDT - 05/18/2024 1:06 PM EDT Surgery [place]patient [place] [address] Lai Cohen MD [facility] [place] [address] CATARACT EXTRACTION, EXTRACAPSULAR, W/ LENS INSERTION (WRVU 7.35) 05/19/2024 12:30 PM EDT Office Visit Ophthalmology at [place] [phone] Lai Cohen MD [facility] [place] [address] 05/26/2024 3:15 PM EDT Office [place] [address] Lai Cohen MD [facility] [place] [address] 06/13/2024 8:45 AM EDT Office [place] [address] Lai Cohen MD [facility] [place] [address] Scheduled Procedures Name Priority Associated Diagnoses Date/Ti [...] a Non-reportable exam Abner A Abdu MD [facility] ORD ERABLES documented in this encounter Visit Diagnoses Not on filedocumented in this encounter Care Teams Transmission Builder Relationship Specialty Start Date End Date Christin Niño APRN PCP - General 05/30/14 12/20/16 documented as of this encounter
--- OUTSIDE RECORDS SUMMARY | 2024-05-11 16:55 | XMS_ITS | Clinical Summary ---
Author Organization Count Includes [facility] Address [facility] [place] [address] Care Team Providers Care Die Try Out Worker Name Role Phone Marino Schultz Primary Care Provider [phone] Allergies Active Allergy Reactions Criticality Noted Date [...] 2:15 PM EDT Office Visit [place] [phone] Lai Cohen MD Cataract, unspecified cataract type, [...] PM EDT Hospital Encounter [place] [address] Lai Cohen MD [facility] [place] [address] 05/18/2024 12:21 PM EDT - 05/18/2024 1:06 PM EDT Surgery [place] [address] Lai Cohen MD [facility] [place] [address] CATARACT EXTRACTION, EXTRACAPSULAR, W/ LENS INSERTION (WRVU 7.35) 05/19/2024 12:30 PM EDT Office Visit [place] [address] Lai Cohen MD [facility] [place] [address] 05/26/2024 3:15 PM EDT Office Visit [place] [address] Lai Cohen MD [facility] [place] [address] 06/13/2024 8:45 AM EDT Office Visit [place] [address] Lai Cohen MD [facility] [place] [address] Scheduled Procedures Name Priority Associated Diagnoses Date/Ti [...] Glucose Lvl 101 65 - 199 mg/dL [facility] Comment:Diabetes: >=200 mg/d L plus symptoms BUN 17 8 - 18 mg/dL [facility] Creatinine 1.01 0.70 - 1.20 mg/dL [facility] Sodium 140 135 - 145 mmol/L [facility] Potassium 4.3 3.5 - 5.0 mmol/L [facility] Comment: Please note: ??Patients with WBC >100,000 may have falsely elevated Potassium levels. ??For accurate Potassium quantification in these patients send serum separator tube (gold top) for subsequent determinations. ??Contact the Clinical Chemistry Laboratory if there are any questions. Chloride 104 98 - 107 mmol/L [facility] CO2 28 22 - 31 mmol/L [facility] Anion Gap 8 5 - 15 mmol/L [facility] Calcium 9.8 8.5 - 10.5 mg/dL [facility] Estimated GFR 57(L) >=60 mL/min/1. 73 m?? [facility] Comment: The eGFR was calculated using the CKD-EPI equation. As with all creatinine based estimates of kidney function, eGFR values calculated with the CKD-EPI equation are not accurate in patients with acute kidney failure, extremes of body mass or the acutely ill. [email or web address][email or web address] eGFR 66 >=60 mL/min/1. 73 m?? [facility] Comment: The eGFR was calculated using the CKD-EPI equation. As with all creatinine based estimates of kidney function, eGFR values calculated with the CKD-EPI equation are not accurate in patients with acute kidney failure, extremes of body mass or the acutely ill. [email or web address]://[email or web address][email or web address] Blood specimen (specimen) 06/15/2019 11:15 AM EDT 06/15/2019 11:36 AM EDT Narrative Resulting Agency Comment Spec In Lab Justina Mccoy MD CHEMISTRY ORDERABLES [facility] [place] [address] from Last 3 Months or Most Recently Relevant to Health Maintenance Care Teams Die Try Out Worker Relationship Specialty Start Date End Date Marino Schultz PA [address] [place], [place] [id number] PCP - General Internal Medicine 03/14/24
--- OUTSIDE RECORDS SUMMARY | 2024-05-11 16:55 | XMS_ITS | Encounter Summary ---
Author Organization On License Of [facility] Address [facility] [place] [address] Care Team Providers Care Orthodontist Vice President Name Role Phone Ramsey Garrett DNP Primary Care Provider Reason for Visit * Reason Comments Follow-up * Consultation (Routine) - Specialty Diagnoses / Procedures Referred By Tg diaz Referred To Contact Dermatology Diagnoses Other seborrheic keratosis Other specified disorders of the skin and subcutaneous tissue seborrheic keratotis multiple skin lesions Ramsey Garrett, ZEYAD [address] [place] [address] [facility] Dermatology [address] [place] [address] Referral ID Status Reason Start Date Expiration Date V isits Requested Visits Authorized [id number] Consult, Test & Treat Connection Center 03/16/2019 03/15/2020 6 6 Encounter Details Date Type Department Care Team (Late st Contact Info) Description 05/09/2019 1:45 PM EDT Office Visit Dermatology at [facility] [address] [place] [address] Yuval Finley MD [facility] [address] [place] [address] Actinic keratoses; Seborrheic keratoses, inflamed; [...] the original note were not included. DERMATOLOGY [place], [place] CONSULT Reason for Consultation: Multiple skin lesions Date of Consultation: 05/09/19 Consult Requested by: Ramsey Garrett, [employer] [address] [place] [address] Chief Complaint: Lesions History of Present Illness Rosmery Hernandez is a 69 y.o. female who presents with the following concerns: ?? Scaly, itchy lesions on the face. Never been treated or biopsied, but patient is concerned that they are actinic keratoses. ?? Brown, itchy lesion on the left gnosticism. Never been treated or biopsied. ?? Tender [...] upper chest significant for the following: ?? [place], hyperkeratotic, pigmented slightly irregular papules on the midline upper forehead x 1, dorsum nose x 1, left malar cheek x 1 [Total AK:3] ?? 11 x 14 mm, dark brown, stuck on, warty plaque on the left gnosticism. Dark brown, stuck on, 2-3 mm,warty papule [...] re-evaluation and management. Inflamed Seborrheic Keratoses, Left gnosticism and left upper chest Benign. Symptomatic. Counseled: ISAlberto and Enoch, benign, treatment options for symptomatic lesions. Answered all questions.Handout given. ?? Total 1 (Left gnosticism) treated with cryotherapy, 2 cycles at 5 [...] Yuval Finley MD FAAD Section of Dermatology [facility] documented in this encounter Plan of Treatment Upcoming Encounters Date Type Department Care Team (Latest Contact Info) Description 05/18/2024 12:21 PM EDT Hospital Encounter Outpatient [place] [address] Lai Cohen MD [facility] DR [place] [address] 05/18/2024 12:21 PM EDT - 05/18/2024 1:06 PM EDT Surgery Outpatient [place] [address] Lai Cohen MD [facility] DR [place] [address] CATARACT EXTRACTION, EXTRACAPSULAR, W/ LENS INSERTION (WRVU 7.35) 05/19/2024 12:30 PM EDT [place] [address] Lai Cohen MD [facility] DR [place] [address] 05/26/2024 3:15 PM EDT [place] [address] Lai Cohen MD [facility] DR [place] [address] 06/13/2024 8:45 AM EDT [place] [address] Lai Cohen MD [facility] DR [place] [address] Scheduled Procedures Name Priority Associated Diagnoses Date/Ti me CATARACT EXTRACTION, EXTRACAPSULAR, W/ LENS INSERTION (WRVU 7.35) Cataract 05/18/2024 12:21 PM EDT documented as of this encounter Visit Diagnoses Diagnosis Actinic keratoses Actinic keratosis Seborrheic keratoses, inflamed Seborrheic keratoses documented in this encounter Care Teams Orthodontist Vice President Relationship Specialty Start Date End Date Ramsey Garrett DNP [address] [place] [address] PCP - General Family Medicine 03/16/19 03/13/24 documented as of this encounter
--- OUTSIDE RECORDS SUMMARY | 2024-05-11 16:55 | XMS_ITS | Encounter Summary ---
Author Organization [facility] Address [facility] [place] [address] Care Team Providers Care Upholsterer Outside Name Role Phone Ramsey Garrett DNP Primary Care Provider Reason for Visit * Consultation (Routine) - Specialty Diagnoses / Procedures Referred By Tg diaz Referred To Contact Dermatology Diagnoses Other seborrheic keratosis Other specified disorders of the skin and subcutaneous tissue Ramsey Garrett DNP [address] [place] [address] [facility] Dermatology [address] [place] [address] Referral ID Status Reason Start Date Expiration Date V isits Requested Visits Authorized [id number] Consult, Test & Treat Connection Center PCP Updated and/or Approved 04/30/2020 06/11/2020 6 6 Encounter Details Date Type Department Care Team (Late st Contact Info) Description 06/05/2020 4:00 PM EDT Office Visit Dermatology at [facility] [address] [place] [address] Yuval Finley MD [facility] [place] [address] Actinic keratoses (Primary Dx) Social [...] note were not included. Dermatology Dermatology at [facility] FOLLOW-UP - ACUTE Chief Complaint: Lesions on face History of Present Illness Rosmery Hernandez is a 70 y.o. female who presents with the following concerns: ?? Lesion on the right cheek that is scaly and does not heal. Noticed 6 months ago. No itching, burning or bleeding. Never been treated or biopsied. ?? Similar lesion on the left church that is tender. Present for 1 month. [...] the face, significant for the following: ?? [place], hyperkeratotic slightly irregular papules on the left church x 1, right malar cheek x 1, [...] Yuval Finley MD FAAD Section of Dermatology [facility] documented in this encounter Plan of Treatment Upcoming Encounters Date Type Department Care Team (Latest Contact Info) Description 05/18/2024 12:21 PM EDT Hospital Encounter Outpatient [place] [address] Lai Cohen MD [facility] [place] [address] 05/18/2024 12:21 PM EDT - 05/18/2024 1:06 PM EDT Surgery Outpatient [place] [address] Lai Cohen MD [facility] [place] [address] CATARACT EXTRACTION, EXTRACAPSULAR, W/ LENS INSERTION (WRVU 7.35) 05/19/2024 12:30 PM EDT [place] [address] Lai Cohen MD [facility] [place] [address] 05/26/2024 3:15 PM EDT [place] [address] Lai Cohen MD [facility] [place] [address] 06/13/2024 8:45 AM EDT [place] [address] Lai Cohen MD [facility] [place] [address] Scheduled Procedures Name Priority Associated Diagnoses Date/Ti me CATARACT EXTRACTION, EXTRACAPSULAR, W/ LENS INSERTION (WRVU 7.35) Cataract 05/18/2024 12:21 PM EDT documented as of this encounter Visit Diagnoses Diagnosis Actinic keratoses- Primary Actinic keratosis documented in this encounter Care Teams Upholsterer Outside Relationship Specialty Start Date End Date Ramsey Garrett DNP [address] [place] [address] PCP - General Family Medicine 03/16/19 03/13/24 documented as of this encounter
--- OUTSIDE RECORDS SUMMARY | 2024-05-11 16:55 | XMS_ITS | Continuity of Care Document ---
Author Organization [facility] [place] [address] [place] [address] Care Team Providers Care Arborist Name Role Phone AMILCAR CHURCH Heavy Equipment Service Technician [phone] Assessment No assessment recorded. Plan of Treatment Reminders Order Date Submit Date Provider Last Modified By Organization Details Last Modified Time Details Appointments Pre - Op 30 2023 11:00A Sridevi TRUJILLO Not available Not available Not available Medicare Annual Wellness 40 2024 09:30A Sridevi TRUJILLO Not available Not available Not available Lab CBC 2023 024 [facility] (Registration ), [address] [place] [address] [place], [address], 05/11/2024 11:45:27 hepatic function panel, serum 2023 024 [facility] (Registration ), [address] [place] [address] [place], [address], 05/11/2024 11:45:29 PT/PTT, plasma 2023 024 [facility] (Registration ), [address] [place] [address] [place], [address], 05/11/2024 11:45:29 Referral None recorded. Procedures None recorded. Surgeries None recorded. Imaging US, renal - renal insuffici ency 2023 024 [facility] (Radiology), [address] [place] [address] [place], [address], 05/11/2024 12:30:50 Medication Orders None recorded. Patient TargetsNo targets recorded. Patient Instructions Encounter Date Encounter Id Patient Instructions Last Modified By Organization Details Last Modified Time 05/11/2024 [id number] Rosmery- good luck with surgery. I will call you with results of todays blood work. We will schedule a kidney ultrasound as well. [email or web address] Not available 05/11/2024 11:28:20 Reason for Referral None Reported. Results Created Date Observation Date Name Description Value Unit Range Abnormal Flag LastModifiedBy Organization Detail LastModifiedTime 05/11/20 24 05/11/2024 mammo graph y imagi ng repor t Patien t Name: Jan Hernandez I Unit #: [id number] Loc: DI Orderi ng Provid er: Erwin onBetty Accoun t #: [id number] Status : REG CLI Primar y Care Provid er: Unknow n,Unkn own Date of Exam: Sex: F Admiss ion Date: : 1949 Age: 74 Exam(s ) MG MAMMO SCREEN ING EXAM: MG MAMMO SCREEN ING CLINIC AL HISTOR Y: SCREEN ING, Z12.31 . TECHNI QUE: Bilate ral full field digita l CC and MLO mammog raphic images were obtain ed with 3D tomosy nthesi s and utiliz ing comput er aided detect ion (CAD). COMPAR DESEAN: Prior mammog demetri were review ed. FINDIN GS: There has been no signif icant change in the appear ance and distri bution of the fibrog landul ar tissue . There are no new spicul ated masses nor malign ant appear ing microc alcifi cation groups . There is no signif icant julia ectura l distor tion nor skin thicke herbert-r etract ion. IMPRES BERTHA: No radiog raphic eviden ce of malign yanet. BI-RAD S Catego ry 1 - Negati ve Breast Densit y - Catego ry B - Scatte red areas of fibrog landul ar densit y Breast densit y Catego ry C or D implie s that the patien t has dense breast tissue . Dense breast tissue can make it harder to find cancer on a mammog sergio. Dense breast tissue is also associ ated with an increa sed risk of breast cancer . This inform ation about the result of the mammog sergio report was provid ed to the patien t to raise their awaren ess. Use this report when you speak with the patien t about their risks for breast cancer , which includ es their family histor y. At that time, you may recomm end additi onal screen ing tests (Ultra sound or MRI) as these tests may add signif icant inform ation. A negati ve radiog raphic report should not delay biopsy if a domina nt or clinic ally suspic ious mass is presen t. Up to ten percen t of cancer s are not identi fied on mammog jade. A negati ve report may reinfo rce clinic al impres bertha. Adenos is and dense breast s may obscur e an underl kelly neopla sm. False positi ve report s averag e 6 to 10%. Patien t will receiv e a letter notify ing them of these result s. Ordere d By: Betty Sumner CC: ------ ------ ------ ------ ------ ------ ------ ------ ------ ------ ------ ------ - Dictat ed By: Amilcar Min M.D. 1324 1324 Transc ribed By: Mechelle PATHAK,Jeffy box 1324 This is privil eged, confid ential inform ation intend ed only for the provid er named. Any use or distri bution by any person other than this provid er is strict ly prohib ited. If you receiv e this report in error, please notify us immedi tramly at and return the origin al report to us at the addres s above. Thank- you. kulwinder [facility] [address], [place], [address] 05/11/2024 13:57:46 Result Notes None recorded. Problems Name Status Onset Date Resolution Date Notes Provider Name and Address Organization Details Recorded Time Fibromyalgia Active 2008 Problem Code: M79.7; Problem Code Type: ICD-10; Not Available [facility] 3 05:53:28 Senile osteoporosis Active 200805/03/2023 - Comments only - Marino Trujillo RPA - unchanged on 2022 dexa. Problem Code: M81.0; Problem Code Type: ICD-10; Not Available [facility] 3 05:53:29 Hyperlipidemi a Active 200809/25/2022 - Comments only - Marino Trujillo RPA - does not want to take statin. May be open to zetia but she would like lipids checked first. Fasting lipids in 3 days. She is taking cholestoff 3 tablets daily. Problem Code: E78.5; Problem Code Type: ICD-10; Not Available [facility] 3 05:53:29 Essential hypertension Active 200909/25/2022 - Comments only - Marino Antoine BANKS - well controlled on lisinopril. Problem Code: I10; Problem Code Type: ICD-10; [address] [place], [address] , [facility] 4 17:32:06 Hyperlipidemi a screening Completed 201504/23/2016 Problem Code: Z13.220; Problem Code Type: ICD-10; Not Available [facility] 3 05:53:29 Diabetes mellitus screening Completed 201504/23/2016 Problem Code: Z13.1; Problem Code Type: ICD-10; Not Available [facility] 3 05:53:29 Screening for malignant neoplasm of breast Completed 201504/23/2016 Problem Code: Z12.39; Problem Code Type: ICD-10; Not Available [facility] 3 05:53:29 Increased frequency of urination Completed 201803/08/2019 Problem Code: R35.0; Problem Code Type: ICD-10; Not Available [facility] 3 05:53:30 Mitral valve regurgitation Active 2018 on 2018 echo Problem Code: I34.0; Problem Code Type: ICD-10; MARINO TRUJILLO PA-C [address], [place], [address] , [facility] 4 17:33:07 Campos's esophagus Active 2018 Present on [address] Church Problem Code: K22.70; Problem Code Type: ICD-10; MARINO TRUJILLO PA-C [address], [place], [address] , [facility] 4 09:28:58 Adult health examination Active 2018 Problem Code: Z00.00; Problem Code Type: ICD-10; Not Available [facility] 3 05:53:31 Vitamin D deficiency Active 2019 Problem Code: E55.9; Problem Code Type: ICD-10; Not Available [facility] 3 05:53:31 Posttraumatic stress disorder Active 2020 Problem Code: F43.10; Problem Code Type: ICD-10; Not Available [facility] 3 05:53:31 Screening for malignant neoplasm of breast Active 202004/21/2021 - Comments only - Marino Trujillo RPA - She is overdue for screening mammogram. 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 Follows with Dr. Church. Treated with a 2 week course of pepto bismol. Problem Code: K52.831; Problem Code Type: ICD-10; Not Available [facility] 3 05:53:32 Candidiasis Completed 202108/24/2023 Problem Code: B37.9; Problem Code Type: ICD-10; Not Available [facility] 4 05:37:17 Abnormal weight loss Completed 201804/21/2019 Problem Code: R63.4; Problem Code Type: ICD-10; Not Available [facility] 3 05:53:38 Cellulitis Completed 201402/22/2019 Problem Code: L03.90; Problem Code Type: ICD-10; Not Available [facility] 3 05:53:38 Disorder of skin and/or subcutaneous tissue Completed 201804/21/2021 Problem Code: L98.8; Problem Code Type: ICD-10; Not Available [facility] 3 05:53:39 Hypertensive disorder Completed 200907/21/2023 Not Available [facility] 3 05:53:39 Hyperlipidemi a screening Completed 201907/18/2020 Problem Code: Z13.220; Problem Code Type: ICD-10; Not Available [facility] 3 05:53:40 Renal function tests outside reference range Completed 201607/18/2020 Problem Code: R94.4; Problem Code Type: ICD-10; Not Available [facility] 3 05:53:40 Fibromyositis Completed 200807/21/2023 Not Available [facility] 3 05:53:41 At risk - finding Completed 201904/21/2021 Problem Code: Z91.89; Problem Code Type: ICD-10; Not Available [facility] 3 05:53:41 Increased frequency of urination Completed 201804/21/2019 Problem Code: R35.0; Problem Code Type: ICD-10; Not Available [facility] 3 05:53:42 Urgent desire to urinate Completed 201804/21/2019 Problem Code: R39.15; Problem Code Type: ICD-10; Not Available [facility] 3 05:53:42 Neck pain Completed 201304/21/2019 Problem Code: M54.2; Problem Code Type: ICD-10; Not Available [facility] 3 05:53:43 Chalazion Completed 201412/03/2017 Problem Code: H00.19; Problem Code Type: ICD-10; Not Available [facility] 3 05:53:43 Chronic pain Completed 200803/14/2019 Problem Code: G89.29; Problem Code Type: ICD-10; Not Available [facility] 3 05:53:45 Diarrhea Completed 201704/21/2019 Not Available [facility] 3 05:53:46 Osteoporosis Completed 200807/21/2023 09/25/2022 - Comments only - Marino Trujillo RPA - Bone density when she returns from [place] next spring. Intolerant of bisphosphonat es. Takes calcium, vitamin d, and collagen. She has a lot of macho in supplements. Not Available [facility] 3 05:53:46 Urinary tract infectious disease Completed 201804/21/2019 Problem Code: N39.0; Problem Code Type: ICD-10; Not Available [facility] 3 05:53:47 Pre-surgery evaluation Completed 201412/03/2017 Problem Code: Z01.818; Problem Code Type: ICD-10; Not Available [facility] 3 05:53:48 Backache Completed 200807/21/2023 Not Available [facility] 3 05:53:48 Hemorrhoids Completed 200807/21/2023 Not Available [facility] 3 05:53:48 Dysuria Completed 201804/21/2019 Problem Code: R30.0; Problem Code Type: ICD-10; Not Available [facility] 3 05:53:48 Depressive disorder Completed 200807/21/2023 Not Available [facility] 3 05:53:49 Adult health examination Completed 201404/21/2019 Problem Code: Z00.00; Problem Code Type: ICD-10; Not Available [facility] 3 05:53:50 Disorder of skin and/or subcutaneous tissue Completed 201602/22/2019 Problem Code: L98.9; Problem Code Type: ICD-10; Not Available [facility] 3 05:53:50 Fatigue Completed 201804/21/2019 Problem Code: R53.83; Problem Code Type: ICD-10; Not Available [facility] 3 05:53:51 Renal insufficiency Active 2023 mild, stable [address], [place], [address] , [facility] 4 17:31:47 Notes:*Problem Name: Partial Blindness Os, S/p Strabismus Surg Age 5 *ICD-10 Codes: *Problem Status: active *Comments: *Note Date: 07/19/2009 Problem Notes None recorded. Medical Equipment None Reported. Allergies Allergen ID Allergen Name Allergen Category Reaction Reaction Severity Criticality Documentation Date Start Date Code Code System Note Provider Name and Address Organization Details Recorded Time 38360 sulfadiaz ine medicatio n Not available Not available Not available 09/03/20232018 72343 RxNorm Not Available [facility] 3 16:22:00 Medications Name Sig Start Date [...] Details Last Updated DateTime 4 153.67 cm 27.3 kg/m2 67028.1 2 g 98.6 [degF] 99 % 99 % 14 /min 88 /min 128 mm[Hg] 70 mm[Hg] VELMA JALLOH RN [facility] 4 11:05:28 Social History Question Answer Notes LastModified by Organizat ion Details LastModified Time Tobacco Smoking Status Former Smoker VELMA JALLOH RN null, [facility] 03/07/2024 09:28:40 When Did You Quit Smoking? 16+yearssincel oni Information not available 03/07/2024 Date Of Most [...] And Wanted Help? (For Example, If You Stafford Very Nervous, Lonely, Or Blue; Got Sick [...] Safety Concerns In Your Home (see Attached CDC Pamphlet)? No Information not available 03/07/2024 How [...] Recorded Time MMR 02/12/2006 completed Not Available [facility] 04:23:35 MMR 03/10/2006 completed Not Available [facility] 04:23:36 Td (adult), 2 Lf tetanus toxoid, preservative free, adsorbed 07/20/2019 completed Not Available [facility] 09/03/2023 04:23:36 Tdap 10/22/2008 completed Not Available [facility] 04:23:38 Pneumococcal conjugate PCV 13 04/19/2015 completed Not Available [facility] 09/03/2023 04:23:39 Influenza, high-dose, trivalent, PF 07/20/2019 completed Not Available [facility] 09/03/2023 04:23:39 Td(adult) unspecified formulation 09/03/2002 completed Not Available [facility] 09/03/2023 04:23:40 Influenza, split virus, trivalent, preservative 10/04/2015 completed Not Available [facility] 09/03/2023 04:23:40 Influenza, high-dose, quadrivalent, PF 07/23/2020 completed Not Available [facility] 09/03/2023 04:23:42 pneumococcal polysaccharide PPV23 01/24/2009 completed Not Available [facility] 2022 04:23:46 pneumococcal polysaccharide PPV23 04/18/2020 completed Not Available [facility] 2022 04:23:47 influenza, unspecified formulation 07/20/2013 completed Not Available [facility] 09/03/2023 04:23:47 Past Encounters Encounter ID Performer Location Encounter Start Date Encounter Closed Date Diagnosis/Indication Diagnosis SNOMED-CT Code [id number] MARINO TRUJILLO PA-C [facility] [address] [place] [address] 05/11/2024 11:01:14 05/11/2024 11:38:36 Renal insufficiency [id number] Easy bruising 152802680 Pre-surger y evaluation [id number] Health Concerns Section Related Observation LastModified by Organization Detai ls LastModified Time None Recorded Concern Status LastModified by Organization Details LastModified Time None Recorded Payers Encounter Date Sequence Insurance Name Policy Number Policy Neil Covered Member ID Neil Member ID Guarantor Name 05/11/2024 2 [employer] (MEDICARE SUPPLEMENT) Rosmery Hernandez [id number] Rosmery Hernandez 05/11/2024 1 [place] [employer] Rosmery Hernandez [id number] Rosmery Hernandez Notes Date Note Type Note Provider Name and Address Organization Details Recorded Time 05/11/2024 text/html HPI Notes: Rosmery is here for preop cataract surgery. She thinks they are doing one eye, and then the other a couple weeks later. She is feeling well. No recent illnesses. No fevers or chills. Her vision is affected by the cataracts. She is looking forward to the procedure. MARINO TRUJILLO PA-C [address], [place], [address], [facility]. 05/11/2024 11:42:34 OBGyn Episode No OBEpisode recorded.
--- OUTSIDE RECORDS SUMMARY | 2024-05-11 16:55 | XMS_ITS | Encounter Summary ---
Author Organization [facility] Address [address] [place] [address] Care Team Providers Care Platen Press Operator Name Role Phone NiñoChristin encarnacion DANNY Primary Care Provider [phone] Encounter Details Date Type Department Care Team (Late st Contact Info) Description 03/04/2022 Lab Requisition [facility] Pathology & Laboratory Medicine - [address] [id number] Outr Resulting Lab, Provider Social History Tobacco [...] C Antibody Negative Negative 03/05/2022 11:48 EDT [facility] Blood VENOUS BLOOD / Unknown 03/03/2022 9:02 EDT 03/04/2022 16:56 EDT Provider Outr Resulting Lab CHEMISTRY & BLOOD GAS ORDERABLES [facility] [address] [place] [address] documented in this encounter Visit Diagnoses Not on filedocumented in this encounter Care Teams Platen Press Operator Relationship Specialty Start Date End Date Christin Niño NP PCP - General 04/08/17 documented as of this encounter
--- OUTSIDE RECORDS SUMMARY | 2024-05-11 16:55 | XMS_ITS | Encounter Summary ---
Author Organization [facility] Address [facility] [place] [address] Care Team Providers Care Clinical Psychologist Licensed Name Role Phone Ramsey Garrett DNP Primary Care Provider Reason for Visit * Consultation (Routine) - Specialty Diagnoses / Procedures Referred By Contsubhash t Referred To Contact Nephrology Diagnoses Abnormal results of kidney function studies Chronic kidney disease, stage 3 (moderate) Ramsey Garrett DNP [address] [place] [address] [facility] [address] [place] [phone] Referral ID Status Reason Start Date Expiration Date V isits Requested Visits Authorized [id number] Consult, Test & Treat [facility] 05/01/2019 08/01/2019 6 6 Encounter Details Date Type Department Care Team (Latest Contact Info) Description 06/15/2019 10:30 AM EDT Office Visit [place] [address] Justina Mccoy MD [facility] [place] [address] Urinary tract infection without hematuria, [...] reviewed. 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 [address] 05/18/2024 12:21 PM EDT - 05/18/2024 1:06 PM EDT Surgery [place] [address] Lai Cohen MD [facility] [place] [address] CATARACT EXTRACTION, EXTRACAPSULAR, W/ LENS INSERTION (WRVU 7.35) 05/19/2024 12:30 PM EDT Office [place] [address] Lai Cohen MD [facility] [place] [address] 05/26/2024 3:15 PM EDT Office [place] [address] Lai Cohen MD [facility] [place] [address] 06/13/2024 8:45 AM EDT Office [place] [address] Lai Cohen MD [facility] [place] [address] Scheduled Procedures Name Priority Associated Diagnoses Date/Ti [...] Prot Elec 7.7 6.1 - 8.0 gm/dL [facility] Albumin Elect 4.71 3.60 - 6.00 gm/dL [facility] Alpha1-Globul in 0.19 0.10 - 0.30 gm/dL [facility] Alpha2-Globul in 0.81 0.40 - 0.90 gm/dL [facility] Beta Globulin 0.89 0.50 - 1.00 gm/dL [facility] Gamma Globulin 1.09 0.50 - 1.30 gm/dL [facility] M1 Band None Detected None Detected [facility] Blood specimen (specimen) 06/15/2019 11:15 AM EDT 06/15/2019 11:36 AM EDT Narrative Resulting Agency Comment Spec In Lab Justina Mccoy MD CHEMISTRY ORDERABLES [facility] [place] [address] * (ABNORMAL) Basic Metabolic Panel (non-fasting) (06/15/2019 11:15 AM EDT) Glucose Lvl 101 65 - 199 mg/dL [facility] Comment:Diabetes: >=200 mg/d L plus symptoms BUN 17 8 - 18 mg/dL [facility] Creatinine 1.01 0.70 - 1.20 mg/dL [facility] Sodium 140 135 - 145 mmol/L [facility] Potassium 4.3 3.5 - 5.0 mmol/L [facility] Comment: Please note: ??Patients with WBC >100,000 may have falsely elevated Potassium levels. ??For accurate Potassium quantification in these patients send serum separator tube (gold top) for subsequent determinations. ??Contact the Clinical Chemistry Laboratory if there are any questions. Chloride 104 98 - 107 mmol/L [facility] CO2 28 22 - 31 mmol/L [facility] Anion Gap 8 5 - 15 mmol/L [facility] Calcium 9.8 8.5 - 10.5 mg/dL [facility] Estimated GFR 57(L) >=60 mL/min/1. 73 m?? [facility] Comment: The eGFR was calculated using the CKD-EPI equation. As with all creatinine based estimates of kidney function, eGFR values calculated with the CKD-EPI equation are not accurate in patients with acute kidney failure, extremes of body mass or the acutely ill. http://[employer]ulturalite/[facility] eGFR 66 >=60 mL/min/1. 73 m?? [facility] Comment: The eGFR was calculated using the CKD-EPI equation. As with all creatinine based estimates of kidney function, eGFR values calculated with the CKD-EPI equation are not accurate in patients with acute kidney failure, extremes of body mass or the acutely ill. http://[employer]/[facility] Blood specimen (specimen) 06/15/2019 11:15 AM EDT 06/15/2019 11:36 AM EDT Narrative Resulting Agency Comment Spec In Lab Justina Mccoy MD CHEMISTRY ORDERABLES [facility] [place] [address] * U Albumin/Cre Ratio (06/15/2019 10:30 AM EDT) Alb/Cr Ratio, Random Not Calculated 0 - 29 mcg/mg Cr [facility] Comment: Reference Ranges: <30 mcg/mg: [...] 362 U Albumin Conc, Random <3.0 mg/L [facility] U Creatinine 19 mg/dL [facility] Urine specimen (specimen) 06/15/2019 10:30 AM EDT 06/15/2019 11:36 AM EDT Narrative Resulting Agency Comment Spec In Lab Justina Mccoy MD URINE ORDERABLES [facility] [place] [address] documented in this encounter Visit Diagnoses Diagnosis Urinary tract infection without hematuria, site unspecified Elevated serum creatinine Other nonspecific findings on examination of blood documented in this encounter Care Teams Clinical Psychologist Licensed Relationship Specialty Start Date End Date Ramsey Garrett DNP [address] [place] [id number] PCP - General Family Medicine 03/16/19 03/13/24 documented as of this encounter
--- OUTSIDE RECORDS SUMMARY | 2024-05-11 16:55 | XMS_ITS | Encounter Summary ---
Author Organization [facility] Address [facility] [place] [address] Care Team Providers Care Senior Data Developer Name Role Phone Ramsey Garrett DNP Primary [...] PM EDT Hospital Encounter Outpatient [place] [address] Lai Cohen MD [facility] DR OPHTHALMOLOGY [place] [address] 05/18/2024 12:21 PM EDT - 05/18/2024 1:06 PM EDT Surgery [place]patient [place] [address] Lai Cohen MD [facility] DR OPHTHALMOLOGY [place] [address] CATARACT EXTRACTION, EXTRACAPSULAR, W/ LENS INSERTION (WRVU 7.35) 05/19/2024 12:30 PM EDT [place] [address] Lai Cohen MD [facility] DR OPHTHALMOLOGY [place] [address] 05/26/2024 3:15 PM EDT [place] [address] Lai Cohen MD [facility] DR OPHTHALMOLOGY [place] [address] 06/13/2024 8:45 AM EDT [place] [address] Lai Cohen MD [facility] DR OPHTHALMOLOGY [place] [address] Scheduled Procedures Name Priority Associated Diagnoses Date/Ti me CATARACT EXTRACTION, EXTRACAPSULAR, W/ LENS INSERTION (WRVU 7.35) Cataract 05/18/2024 12:21 PM EDT documented as of this encounter Visit Diagnoses Not on filedocumented in this encounter Care Teams Senior Data Developer Relationship Specialty Start Date End Date Ramsey Garrett DNP [address] [place] [id number] PCP - General Family Medicine 03/16/19 03/13/24 documented as of this encounter
--- OUTSIDE RECORDS SUMMARY | 2024-05-11 16:55 | XMS_ITS | Encounter Summary ---
Author Organization [facility] [place] [address] Care Team Providers Care Watcher Lookout Tower Name Role Phone Ramsey Garrett DNP Primary Care Provider Encounter Details Date Type Department Care Team (Late st Contact Info) Description 06/16/2019 6:30 PM EDT Ancillary Procedure [place] [address] Justina Mccoy MD [facility] [place] [address] Social History Tobacco Use Types Packs/Day Years [...] PM EDT Hospital Encounter [place] [address] Lai Cohen MD [facility] [place] [address] 05/18/2024 12:21 PM EDT - 05/18/2024 1:06 PM EDT Surgery [place] [address] Lai Cohen MD [facility] [place] [address] CATARACT EXTRACTION, EXTRACAPSULAR, W/ LENS INSERTION (WRVU 7.35) 05/19/2024 12:30 PM EDT Office [place] [address] Lai Cohen MD [facility] [place] [address] 05/26/2024 3:15 PM EDT Office [place] [address] Lai Cohen MD [facility] [place] [address] 06/13/2024 8:45 AM EDT Office [place] [address] Lai Cohen MD [facility] [place] [address] Scheduled Procedures Name Priority Associated Diagnoses Date/Ti me CATARACT EXTRACTION, EXTRACAPSULAR, W/ LENS INSERTION (WRVU 7.35) Cataract 05/18/2024 12:21 PM EDT documented as of this encounter Procedures Procedure Name Priority Date/Time Associated Diagnosis Comments FILM LIBRARY STORAGE ONLY ULTRASOUND STUDY Routine 06/16/2019 6:29 PM EDT documented in this encounter Results * Film Library- Storage Only Ultrasound Study (06/16/2019 6:29 PM EDT) Narrative [facility] - 06/16/2019 6:29 PM EDT This exam is auto-finalizing. It's purpose is for storage only. Justina Mccoy MD IMG FILM LIBRARY ORD ERABLES [facility] [place] documented in this encounter Visit Diagnoses Not on filedocumented in this encounter Care Teams Watcher Lookout Tower Relationship Specialty Start Date End Date Ramsey Garrett DNP [address] [place] [address] PCP - General Family Medicine 03/16/19 03/13/24 documented as of this encounter
--- OUTSIDE RECORDS SUMMARY | 2024-05-11 16:55 | XMS_ITS | Clinical Summary ---
Author Organization [facility] Address [address] [place] [address] Care Team Providers Care Bilingual Medical Receptionist Name Role Phone Christin Niño TESTING DIRECTOR Primary Care Provider [phone] Social History Tobacco Use Types Packs/Day Years [...] C Antibody Negative Negative 03/05/2022 11:48 EDT [facility] Blood VENOUS BLOOD / Unknown 03/03/2022 9:02 EDT 03/04/2022 16:56 EDT Provider Outr Resulting Lab CHEMISTRY & BLOOD GAS ORDERABLES [facility] [address] [place] [address] from Last 3 Months or Most Recently Relevant to Health Maintenance Care Teams Bilingual Medical Receptionist Relationship Specialty Start Date End Date Christin Niño NP [facility] - General 04/08/17
--- OUTSIDE RECORDS SUMMARY | 2024-05-11 16:55 | XMS_ITS | Encounter Summary ---
Author Organization [facility] Address [facility] [place] [id number] Care Team Providers Care Chief Deputy Name Role Phone Ramsey Garrett DNP Primary Care Provider Reason for Visit * Reason Comments Procedure Encounter Details Date Type Department Care Team (Latest Contact Info) Description 09/07/2023 2:00 PM EST Procedure [place] [address] Lai Cohen MD [facility] DR [place] [address] Cataract, unspecified cataract type, unspecified laterality Social [...] PM EDT Hospital Encounter Outpatient [place] [address] Lai Cohen MD [facility] DR [place] [address] 05/18/2024 12:21 PM EDT - 05/18/2024 1:06 PM EDT Surgery [facility] [address] Lia Cohen MD [facility] DR [place] [address] CATARACT EXTRACTION, EXTRACAPSULAR, W/ LENS INSERTION (WRVU 7.35) 05/19/2024 12:30 PM EDT Office Visit Ophthalmology at [address] Lai Cohen MD [facility] DR [place] [address] 05/26/2024 3:15 PM EDT Office Visit Ophthalmology at [place] [phone] Lai Cohen MD [facility] DR [place] [address] 06/13/2024 8:45 AM EDT Office Visit Ophthalmology at [place] [phone] Lai Cohen MD [facility] DR [place] [address] Scheduled Procedures Name Priority Associated Diagnoses Date/Ti me CATARACT EXTRACTION, EXTRACAPSULAR, W/ LENS INSERTION (WRVU 7.35) Cataract 05/18/2024 12:21 PM EDT documented as of this encounter Procedures Procedure Name Priority Date/Time Associated Diagnosis Comments [id number] CALC BY LASER INTERFEROMETRY - OU - BOTH EYES Routine 09/09/2023 7:32 AM EST Cataract, unspecified cataract type, unspecified laterality documented in this encounter Results * [id number] Calc By Laser Interferometry - OU - [...] of Amblyopia OS, surgery age 5 at [facility] Difference in Axial Lengths OU confirmed using [...] laterality documented in this encounter Care Teams Chief Deputy Relationship Specialty Start Date End Date Ramsey Garrett DNP [address] [place] [address] PCP - General Family Medicine 03/16/19 03/13/24 documented as of this encounter
--- OUTSIDE RECORDS SUMMARY | 2024-05-11 16:55 | XMS_ITS | Encounter Summary ---
[place] [address] Care Team Providers Care Catalog Specialist Name Role Phone Christin Niño Samantha ORDAZ Primary Care Provider [phone] Reason for Visit * Reason Comments Neck And Back Pain Encounter Details Date Type Department Care Team (Late st Contact Info) Description 06/28/2014 9:15 AM EDT Office [place] [address] Megha Carrero APRN [facility] [place] [address] Cervical spondylosis without myelopathy (Primary Dx) Discharge [...] free. Sustained Spurling's maneuver is negative bilaterally. Manager Chinese strength and thumb strength are 5/5 bilaterally. [...] of this patient. Megha Carrero MS, ORLIN, GAS PIPE LAYER-C [facility] documented in this encounter Plan of Treatment Upcoming Encounters Date Type Department Care Team (Latest Contact Info) Description 05/18/2024 12:21 PM EDT Hospital Encounter Outpatient [place] [address] Lai Cohen MD [facility] [place] [address] 05/18/2024 12:21 PM EDT - 05/18/2024 1:06 PM EDT Surgery Outpatient [place] [address] Lai Cohen MD [facility] [place] [address] CATARACT EXTRACTION, EXTRACAPSULAR, W/ LENS INSERTION (WRVU 7.35) 05/19/2024 12:30 PM EDT Office [place] [address] Lai Cohen MD [facility] [place] [address] 05/26/2024 3:15 PM EDT Office Visit [place] [address] Lai Cohen MD [facility] [place] [address] 06/13/2024 8:45 AM EDT Office Visit [place] [address] Lai Cohen MD [facility] [place] [address] Scheduled Procedures Name Priority Associated Diagnoses Date/Ti me CATARACT EXTRACTION, EXTRACAPSULAR, W/ LENS INSERTION (WRVU 7.35) Cataract 05/18/2024 12:21 PM EDT documented as of this encounter Visit Diagnoses Diagnosis Cervical spondylosis without myelopathy- Primary documented in this encounter Care Teams Catalog Specialist Relationship Specialty Start Date End Date Christin Niño APRN PCP - General 05/30/14 12/20/16 documented as of this encounter
--- OUTSIDE RECORDS SUMMARY | 2024-05-11 16:55 | XMS_ITS | Encounter Summary ---
Author Organization [facility] Address [address] [place] [address] Care Team Providers Care Head School Custodian Name Role Phone Unknown, Provider Primary Care Provider Encounter Details Date Type Department Care Team (Late st Contact Info) Description 04/05/2017 Results Only [facility] [phone] Radhika Riojas, [address] [place], [place] [id number] Social History Tobacco Use Types Packs/Day Years [...] ? ROSMERY BOND ? Accession #: ? [id number] ? : ? 1950 (Age: 67) ??F ? Collect Date: ? 04/05/2017 ? Location: ? [facility] ? Receive Date: ? 04/06/2017 ? Provider: RADHIKA RIOJAS DO Copy to: CLARA BANG FLIGHT READINESS TECHNICIAN ? Final Pathologic Diagnosis: A. SKIN OF [...] (ASCP) 04/06/2017 10:10 AM End of Report [facility] 04/05/2017 8:50 EDT 04/06/2017 8:50 EDT Radhika Riojas DO PATHOLOGY ORDER OPAL [facility] [address] [place] [address] documented in this encounter Visit Diagnoses Not on filedocumented in this encounter Care Teams Head School Custodian Relationship Specialty Start Date End Date Unknown, Provider, PCP - General 04/06/17 04/07/17 documented as of this encounter
[2024-05-11 17:37] LABS: HCT 41.1 % (36.0-46.0); HGB 13.2 g/dL (11.2-15.7); MCHC 32.1 % (32.0-36.0); MCV 97 fL (80-95); MPV 10.3 fL (8.0-11.0); Platelet Count 271 10^3/uL (130-400); RBC 4.26 10^6/uL (3.93-5.22); RDW 13.5 % (11.7-14.6); RDW-SD 48.1 fL; WBC 6.24 10^3/uL (4.4-10.8)
[2024-05-11 17:54] LABS: ALT 20 U/L (14-59); AST 18 U/L (15-37); Albumin 3.9 g/dL (3.4-5.0); Alkaline Phosphatase 67 U/L (46-116); Bilirubin, Direct 0.1 mg/dL (0.0-0.2); Bilirubin, Total 0.44 mg/dL (0.2-1.0); Total Protein 7.7 g/dL (6.4-8.2)
[2024-05-11 18:19] LABS: INR 0.9 (0.9-1.1); Prothrombin Time 8.9 sec (9.1-11.1)
== END 2024-05-11 16:53 | disposition home or self-care (01) ==
LOC: NCHCN 16:52
PROVIDERS: Visit Provider Physician Assistant
DX: R23.3 Spontaneous ecchymoses (principal); R74.9 Abnormal serum enzyme level, unspecified; R79.89 Other specified abnormal findings of blood chemistry
CPT/HCPCS: 80076; 85027; 85610; 85730

== ENCOUNTER 2024-06-02 00:15 | Outpatient (CLI) | payer MEDICARE, SELFPAY ==
--- NOTE | 2024-06-02 | DI.US_ITS ---
Exam(s) US RENAL EXAM: US RENAL CLINICAL HISTORY: Disorder of kidney and ureter, N28.9, renal insufficiency TECHNIQUE: Ultrasound of both kidneys performed using standard protocol. COMPARISON: US US renal from 06/16/[address] CHEST/ABD/PEL W from 09/28/2020 FINDINGS: RIGHT KIDNEY: Measures 8.9 cm in length. No cysts evident. Normal cortical thickness and corticomedullary different iation .No solid masses No intrarenal calculi nor hydronephrosis. LEFT KIDNEY: Measures 7.8 cm in length. No cysts evident. Normal cortical thickness and corticomedullary differen tiaion. No solids masses. No intrarenal calculi nor hydonephrosis. URINARY BLADDER: Prevoid volume is 32 cc Postvoid volume is not able to be determined started off diminished bladder volume. Difficult to assess accurately for masses in the bladder with only 32 cc therein. Ureterovesical jets: Both ureterovesical jets were identified. IMPRESSION: 1. No significant ultrasound findings in the kidneys. No calculi. No hydronephrosis 2. Bladder contain only 32 cc of urine and therefore difficult to evaluate accurately. DATA REPOSITORY:
--- OUTSIDE RECORDS SUMMARY | 2024-06-02 00:17 | XMS_ITS | Encounter Summary ---
Author Organization [facility] Address [facility] [place] [address] Care Team Providers Care Extrusion Former Name Role Phone Ramsey Garrett DNP Primary Care Provider [phone] Reason for Visit * Reason Comments Blurred Vision * Consultation (Routine) - Closed Specialty Diagnoses / Procedures Referred By Tg diaz Referred To Contact Ophthalmology Diagnoses CAT EVAL OD Bharagv, Shelli, OD [address] [place] [address] Lai Cohen MD [facility] [place] [address] Referral ID Status Reason Start Date Expiration Date V isits Requested Visits Authorized [id number] Closed Consult, Test & Treat 07/29/2023 07/28/2024 1 1 Encounter Details Date Type Department Care Team (Late st Contact Info) Description 03/08/2024 2:15 PM EDT Office Visit [place]hthal[place] [address] Lai Cohen MD [facility] [place] [address] Cataract, unspecified cataract type, unspecified laterality; Amblyopia, [...] Upcoming Encounters Date Type Department Care Team (Late st Contact Info) Description 06/13/2024 8:45 AM EDT Office Visit Ophthalmology [place] [address] Lai Cohen MD [facility] [place] [address] documented as of this encounter Visit Diagnoses Diagnosis Cataract, unspecified cataract type, unspecified laterality Amblyopia, 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
--- OUTSIDE RECORDS SUMMARY | 2024-06-02 00:17 | XMS_ITS | Clinical Summary ---
Author Organization [facility] Address [facility] [place] [address] Care Team Providers Care Crop Farmers Name Role Phone Marino Schultz Primary Care Provider [phone] Allergies Active Allergy Reactions Criticality Noted Date [...] Take 500 mg by mouth daily. Active ketorolac tromethamine (Acular) 0.5 % DropsIndications:Stat us post cataract extraction and insertion of intraocular lens, left Place into the left eye. Use in operative eye as directed. 05/19/2024 06/16/2024 Active prednisoLONE acetate (Pred Forte) 1 % Drops, SuspensionIndications :Status post cataract extraction and insertion of intraocular lens, left Place into the left eye. Use in operative eye as directed. 05/19/2024 06/18/2024 Active Active Problems Problem Noted Date Diagnosed Date Pseudophakia 05/19/2024 Cervical spondylosis without myelopathy 06/28/20 14 Encounters Date Type Department Care Team Description 05/26/2024 3:15 PM EDT Office [place] [address] Lai Cohen MD Pseudophakia 05/26/2024 Travel 05/19/2024 12:30 PM EDT [place] [address] Lai Cohen MD Status post cataract extraction and insertion of intraocular lens, left; Pseudophakia 05/19/2024 Travel 05/18/2024 12:21 PM EDT - 05/18/2024 1:06 PM EDT [facility] [place] [phone] Lai Cohen MD CATARACT EXTRACTION, EXTRACAPSULAR, W/ LENS INSERTION (WRVU 7.35) 05/18/2024 10:51 AM EDT - 05/18/2024 1:09 PM EDT Hospital Encounter [place] [address] Lai Cohen MD Discharge Disposition: Home 03/08/2024 2:15 PM EDT Office [place] [address] Lai Cohen MD Cataract, unspecified cataract type, [...] drink = 0.6 oz pur e alcohol) [facility] Inpatient Questions Answer Date Recorded Does Anyone Try to Keep You From Having Contact with Others or Doing Things Outside Your Home? no 05/18/2024 Feels Threatened by Someone no 04/25 Feels Unsafe at Home or Work/School no 05/18/2024 Physical Signs of Abuse Present no 05/18/2024 Sex and Gender Information Value Date Recorded Sex Assigned at Not on file Gender Identity Not on file Sexual Orientation Not on file Last Filed Vital Signs Vital Sign Reading Time Taken Comments Blood Pressure 146/53 05/18/2024 12:57 PM EDT Pulse 60 05/18/2024 12:57 PM EDT Temperature 36 ??C (96.8 ??F) 05/18/2024 12:57 PM EDT Respiratory Rate 16 05/18/2024 12:57 PM EDT Oxygen Saturation 99% 05/18/2024 12:57 PM EDT Inhaled Oxygen Concentration - - Weight 63.5 kg (140 lb) 05/18/2024 11:02 AM EDT Height 154.9 cm (5' 1) 05/18/2024 11:02 AM EDT Body Mass Index 26.45 05/18/2024 11:02 AM EDT Plan of Treatment Upcoming Encounters Date Type Department Care Team (Late st Contact Info) Description 06/13/2024 8:45 AM EDT Office [place] [address] Lai Cohen MD [facility] [place] [address] Health Maintenance Due Date Last Done Comments [...] - PCV) 2015 Covid-19 Vaccine (1 - season) 2023 Influenza (Flu) vaccine (1 o f 1 - Influenza standard series) 06/25/2024 Diabetes Screening (HgbA1C or Glucose) Discontinued Medical Devices Implanted Type Area Revit Drafter Device Identifier Shelf Expiration Date Model / Serial / Lot Lens Iol [id number] +25.5d 6.0x13.0 Aspherical Post Biconvex ([id number]) (Autoreq) - [id number] Implanted:Qty: 1 on 05/18/2024 by Lai Cohen MD at [facility] Left: Eye [facility] [id number] 04/08/2026 SY60WF.25 5 [id number] / Procedures Procedure Name Priority Date/Time Associated Diagnosis Comments Extracapsular Cataract Rmvl Insertion Io Lens Prosth W/O Ecp (55345) 05/18/2024 12:24 PM EDT Cataract CATARACT EXTRACTION, EXTRACAPSULAR, W/ LENS INSERTION Routine 05/18/2024 10:55 AM EDT BASIC METABOLIC PANEL Routine 06/15/2019 11:15 AM EDT Urinary tract infection without hematuria, site unspecified Elevated serum creatinine from Last 3 Months or Most Recently Relevant to Health Maintenance Results * (ABNORMAL) Basic Metabolic Panel (non-fasting) (06/15/2019 11:15 AM EDT) Glucose 101 65 - 199 mg/dL [facility] Comment:Diabetes: >=200 mg/d L plus symptoms Blood Urea Nitrogen 17 8 - 18 mg/dL [facility] Creatinine 1.01 0.70 - 1.20 mg/dL [facility] Sodium 140 135 - 145 mmol/L [facility] Potassium 4.3 3.5 - 5.0 mmol/L [facility] Comment: Please note: ??Patients with WBC >100,000 may have falsely elevated Potassium levels. ??For accurate Potassium quantification in these patients send serum separator tube (gold top) for subsequent determinations. ??Contact the Clinical Chemistry Laboratory if there are any questions. Chloride 104 98 - 107 mmol/L [facility] Carbon Dioxide 28 22 - 31 mmol/L [facility] Anion Gap 8 5 - 15 mmol/L [facility] Calcium 9.8 8.5 - 10.5 mg/dL [facility] Est Glomerular Filtration Rate 57(L) >=60 mL/min/1. 73 m?? [facility] Comment: The eGFR was calculated using the CKD-EPI equation. As with all creatinine based estimates of kidney function, eGFR values calculated with the CKD-EPI equation are not accurate in patients with acute kidney failure, extremes of body mass or the acutely ill. [email or web address] eGFR 66 >=60 mL/min/1. 73 m?? [facility] Comment: The eGFR was calculated using the CKD-EPI equation. As with all creatinine based estimates of kidney function, eGFR values calculated with the CKD-EPI equation are not accurate in patients with acute kidney failure, extremes of body mass or the acutely ill. [email or web address] Blood specimen (specimen) 06/15/2019 11:15 AM EDT 06/15/2019 11:36 AM EDT Narrative Resulting Agency Comment Spec In Lab Justina Mccoy MD CHEMISTRY ORDERABLES [facility] [place] [address] from Last 3 Months or Most Recently Relevant to Health Maintenance Advance Directives * Attempt Cardiopulmonary Resuscitation - Inpatient (Latest Code Status on File) Date Activated Date Inactivated Comments 05/18/2024 11:39 AM 05/18/2024 3:20 PM Question Answer Comments Code Status decision made by: Patient Content of discussion: full code for eye surgery today Care Teams Crop Farmers Relationship Specialty Start Date End Date Marino Schultz PA [address] [place] [address] PCP - General Internal Medicine 03/14/24
--- OUTSIDE RECORDS SUMMARY | 2024-06-02 00:17 | XMS_ITS | Encounter Summary ---
Author Organization [facility] Address [facility] [place] [id number] Care Team Providers Care Crystal Mounter Name Role Phone Marino Schultz Primary Care Provider [phone] Reason for Visit * Auth/Cert (Routine) Specialty Diagnoses / Procedures Referred By Contsubhash t Referred To Contact Diagnoses Cataract Procedures PRO EXTRACAPSULAR CATARACT RMVL INSERTION IO LENS PROSTH W/O ECP CATARACT EXTRACTION, EXTRACAPSULAR, W/ LENS INSERTION (WRVU 7.35) Lai Cohen MD [facility] [address] [facility] Referral ID Status Reason Start Date Expiration Date Visits Re quested Visits Authorized [id number] 1 1 Encounter Details Date Type Department Care Team (Latest Contact Info) Description 05/18/2024 10:51 AM EDT - 05/18/2024 1:09 PM EDT Hospital Encounter [facility] [place] [address] Lai Cohen MD [facility] [address] Discharge Disposition: Home Social History Tobacco Use Types Packs/Day Years Used Date Smoking Tobacco: Former Smokeless Tobacco: Never Alcohol Use Standard Drinks/Week Comments Never 0 (1 standard drink = 0.6 oz pur e alcohol) [facility] Inpatient Questions Answer Date Recorded Does Anyone [...] Mass Index 26.45 05/18/2024 11:02 AM EDT documented in this encounter Discharge Instructions * Discharge Instructions* Megan Castañeda RN - 05/18/2024 11:07 AM EDT Instructions for the first day following eye surgery Lai Cohen MD Section of ophthalmology [facility] [phone] - Keep your eye patched, shielded, clean and dry overnight. The patch will be removed during your follow up visit with Dr. Cohen tomorrow. - The surgery center nurses should confirm time of your follow up appointment for tomorrow with . This appointment will be at the [facility] in the main building at [facility]. - Mild discomfort is normal, but if you have any severe eye pain or bleeding call [phone] and ask to speak to the eye doctor registration manager. - Call your Primary Care Doctor or the Emergency Room for any non eye related medical issues. - Your eye will be red tomorrow - this is normal. - You will go home with drops but you will not start them until after your visit with Dr. Cohen tomorrow. Additional instructions about your eyedrops, care of the eye and timing of visual recovery will be provided at that appointment. You may have received medication before and/or during your procedure, which affect your judgement and reaction time therefore for the next 24 hours: You may be unsteady on your feet, be careful on stairs. Do not smoke if you are alone. Do not drink alcoholic beverages. Do not drive or operate any type of machinery. Do not make important legal decisions. documented in this encounter Medications at Time of Discharge Medication Sig Dispensed Refills Start Date End Date melatonin 10 mg Capsule Take 10 mg by mouth nightly. diphenhydrAMINE (BENADRYL) 25 mg Capsule Take 25 mg by mouth every 6 hours as needed for Itching or Sleep. cholecalciferol, Vitamin D3, 2,000 unit Capsule Take 2,000 Units by mouth daily. Cranberry 500 mg Capsule Take 500 mg by mouth daily. OMEGA-3S/DHA/EPA/FISH OIL (OMEGA 3 ORAL) Take 500 mg by mouth daily. PLANT STANOL SHERRIE (CHOLEST OFF ORAL) Take by mouth daily. lisinopril (PRINIVIL;ZESTRIL) 10 mg Tablet Take 10 mg by mouth daily. documented as of this encounter Progress Notes * Megan Castañeda RN - 05/18/2024 1:09 PM EDT Discharge instructions, medications, and follow-up appointments reviewed with patient and escort. All questions answered and written copy sent home with patient. Patient instructed to wiggle foot if having pain, need to cough, etc. Patient instructed not to talk during procedure. Pain assessment unable to verbalize (non-verbal) but will indicate pain with foot wiggle, ask surgeon to pause and verbally assess patient. Date/Procedure: Meds Given Comments Left Eye Cataract Midazolam: 1.0 mg Fentanyl: 25 mcg Pt tolerated procedure well. No complaints of pain. VSS throughout. Eye shield placed on correct eye before leaving the OR. Vital signs assessed and stable before discharge. Patient tolerating PO fluids before discharge. Patient walked with staff member to car for discharge. Eye care kit with eye drops given to patient for discharge. documented in this encounter H&P Notes * Lai Cohen MD - 05/18/2024 11:35 AM EDT Images from the original note were not included. Seen in pre-operative area. Rosmery Hernandez reports that she is in her usual state of health and has had no new problems with her eyes or general health since her pre op physical examination and shefeels fit for surgery today. Rosmery was in no distress; specifically no respiratory distress. Preop physical examination reviewed. Heart: RRR Chest: CTA her Mallampati score is class 2 (see below) and ASA II and her eyes were non inflamed. Operative, refractive, code status and post op plans reviewed: Stressed and reviewed again that OS has amblyopia and that visual potential is limited and confirmed that she selected a distance target for OS of -0.5D even though OD is myopic (~-3.25) She understands that we can adjust OD to balance later on when it has CEIOL Diagnosis and surgical plan: Cataract causing impaired vision with plan for cataract extraction andintraocular lens placement left eye Sedation plan: Moderate sedation with anesthesia back up and full code for eye surgery ASA PHYSICAL STATUS CLASSIFICATION SYSTEM I. Patient is a completely healthy fit patient. II. Patient has mild systemic disease. III. Patient has severe systemic disease that is not incapacitating. IV. Patient has incapacitating disease that is a constant threat to life. V. A moribund patient who is not expected to live 24 hour with or without surgery documented in this encounter Miscellaneous Notes * Op Note - Lai Cohen MD - 05/18/2024 12:34 PM EDT [facility] Operative Note Patient Name: Rosmery Hernandez : [id number] MR#: [id number] Case Date: 05/18/2024 Surgeon: Surgeons and Role: * Lai Cohen MD - Primary Preoperative diagnosis: Cataract Postoperative diagnosis: Cataract Procedure(s) (LRB): CATARACT EXTRACTION, EXTRACAPSULAR, W/ LENS INSERTION (WRVU 7.35) (Left) Preoperative Diagnoses 1. Cataract, LEFT eye. 2. Amblyopia OS Postoperative Diagnoses 1. Same with floppy iris Procedure: Phacoemulsification operative eye as above (Navjot SY60WF, 25. D). Anesthesia: IV Conscious sedation with local (Subtenon's block, 1:1 2% lidocaine + 0.75% bupivacaine). Surgeon: Lai Cohen MD Specimens: None. Estimated blood loss: Minimal ( less than 1ml) Complications: None. Brief History: Rosmery Hernandez is a 74 y.o. with painless symptomatic visual impairment due to amblyopia and cataracts causing difficulty with visual activities, not correctable with a tolerable change in lens prescription. There is no evidence that other diseases are the primary cause of vision loss. The risks, benefits and alternatives to the surgery were discussed pre operatively and Janiaexpressed understanding and elected surgery. Procedure: After informed consent was reviewed with the patient in the preoperative area and the operative site was marked, the patient was taken to the operating room and placed on the operating table in the supine position and with some reverse Trendelenburg. A drop of alcaine and then 5% betadine was placed in the operative eye x 2 beginning 10 minutes prior to the surgerical incision. After adequate intravenous sedation was given the operative eye was then prepped and draped in the usual sterile ophthalmic manner with containment of the eyelashes. A lid speculum was placed into the operative eye. Conjunctiva and Tenon's were opened in the inferior nasal quadrant and a SubTenon's block was placed with a retrobulbar cannula. A conjunctival incision was made at ~11 o'clock using Shyann scissors. Conjunctiva and Tenon's membrane were opened to allow a 2.4 mm incision site approximately 1 mm posterior to the limbus. Hemostasis was obtained with eraser- tip cautery. A paracentesis was then made a 2 o'clock. The eye was filled with viscoelastic. The eye was then entered through the incision using the keratome. The cystotome and Utrata forceps was used to create the capsulorhexis. Regina Dissection and delineation were performed. The phacoemulsification instrument was placed in the eye, and a phacoemulsification of the lens was performed. Residual cortex was removed using the irrigation and aspiration device. The iris was noted to be somewhat flaccid and there was one episode of iris prolapse but it was easily reposited. The IOL (see above) was placed into the capsular bag after the eye had been filled with viscoelastic. Viscoelastic was removed using the I-A device. Miostat was placed in the AC The lens was well centered and stable in the capsular bag. The eye was found to be at an appropriate tactile tension, and the wound was watertight but given the iris prolapse earlier was sutured with 10.0 vicryl for extra security The conjunctiva was closed using 10.0 vicryl. Subconjunctival dexamethasone and cefazolin and ceftazidime were given. The eye was patched over timololand maxitrol ointment. Rosmery tolerated the procedure well and was given instructions to keep the eye patched, shielded,clean and dry and follow up tomorrow in the eye clinic. Rosmery is to call p.r.n. any problems. LAI COHEN MD Attestation: Case Date: 05/18/2024 I performed this procedure without the involvement of a resident. LAI COHEN MD 05/18/2024 documented in this encounter Plan of Treatment Upcoming Encounters Date Type Department Care Team (Late st Contact Info) Description 06/13/2024 8:45 AM EDT Office [place] [address] Lai Cohen MD [facility] [place] [address] documented as of this encounter Procedures Procedure Name Priority Date/Time Associated Diagnosis Comments Extracapsular Cataract Rmvl Insertion Io Lens Prosth W/O Ecp (39628) 05/18/2024 12:24 PM EDT Cataract CATARACT EXTRACTION, EXTRACAPSULAR, W/ LENS INSERTION Routine 05/18/2024 10:55 AM EDT documented in this encounter Visit Diagnoses Not on filedocumented in this encounter Administered Medications Inactive Administered Medications - up to 3 most recent administrations Medication Order MAR Action Action Date Dose Rate Site cyclopentolate (Cyclodryl) ophthalmic solution 1 drop 1 drop, Left Eye, EVERY 5 MIN, 3 doses, First dose on Lachelle 05/18/24 at 1115, Last dose on Lachelle 05/18/24 at 1125, 1 drop to the operative eye every 5 minutes times 3. Start day of surgery. Do NOT place dilating drops in post-op kit!, Day of Surgery (Day of Procedure), Routine Given 05/18/2024 11:25 AM EDT 1 drop Given 05/18/2024 11:23 AM EDT 1 drop Given 05/18/2024 11:21 AM EDT 1 drop ketorolac tromethamine (Acular) 0.5 % ophthalmic solution 1 drop 1 drop, Left Eye, ONCE, 1 dose, On Lachelle 05/18/24 at 1115, 1 drop to the operative eye once. Start on the day of surgery., Day of Surgery (Day of Procedure), Routine Given 05/18/2024 11:30 AM EDT 1 drop lactated ringers infusion 1,000 mL, at 100 mL/hr, Intravenous, CONTINUOUS, Starting on Lachelle 05/18/24 at 1115, Until Lachelle 05/18/24 at 1313, Day of Surgery (Day of Procedure) New Bag 05/18/2024 11:50 AM EDT 1,000 mLs 100 mL/hr moxifloxacin (Vigamox) 0.5 % ophthalmic solution 1 drop 1 drop, Left Eye, EVERY 5 MIN, 3 doses, First dose on Lachelle 05/18/24 at 1115, Last dose on Lachelle 05/18/24 at 1125, 1 drop to the operative eye every 5 minutes times 3. Start on the day of surgery., Day of Surgery (Day of Procedure), Routine Given 05/18/2024 11:39 AM EDT 1 drop Given 05/18/2024 11:37 AM EDT 1 drop Given 05/18/2024 11:35 AM EDT 1 drop PHENYLephrine (Mydfrin) 2.5 % ophthalmic solution 1 drop 1 drop, Left Eye, EVERY 5 MIN, 3 doses, First dose on Lachelle 05/18/24 at 1115, Last dose on Lachelle 05/18/24 at 1125, 1 drop to the operative eye every 5 minutes times 3. Start on the day of surgery. Do NOT place dilating drops in post-op kit!, Day of Surgery (Day of Procedure), Routine Given 05/18/2024 11:18 AM EDT 1 drop Given 05/18/2024 11:15 AM EDT 1 drop Given 05/18/2024 11:12 AM EDT 1 drop prednisoLONE acetate (Pred-Forte) 1 % suspension 1 drop 1 drop, Left Eye, ONCE, 1 dose, On Lachelle 7/24 at 1115, 1 drop to the operative eye once. Start on the day of surgery., Day of Surgery (Day of Procedure), Routine Given 05/18/2024 11:27 AM EDT 1 drop documented in this encounter Active and Recently Administered Medications Times are shown in EDT. Scheduled Medication Order 05/16/2024 05/17/2024 05/18/2024 cyclopentolate (Cyclodryl) ophthalmic solution 1 drop (COMPLETED) 1 drop, Left Eye, EVERY 5 MIN, 3 doses, First dose on Lachelle 24 at 1115, Last dose on Lachelle 05/18/24 at 1125, 1 drop to the operative eye every 5 minutes times 3. Start day of surgery. Do NOT place dilating drops in post-op kit!, Day of Surgery (Day of Procedure), Routine 1121 (Given - Provid er: Megan Castañeda RN)1123 (Given - Provider: Megan Castañeda RN)1125 (Given - Provider: Megan Castañeda RN) ketorolac tromethamine (Acular) 0.5 % ophthalmic solution 1 drop (COMPLETED) 1 drop, Left Eye, ONCE, 1 dose, On Lachelle 7 at 1115, 1 drop to the operative eye once. Start on the day of surgery., Day of Surgery (Day of Procedure), Routine 1130 (Given - Provid er: Megan Castañeda RN) moxifloxacin (Vigamox) 0.5 % ophthalmic solution 1 drop (COMPLETED) 1 drop, Left Eye, EVERY 5 MIN, 3 doses, First dose on Lachelle 7/24 at 1115, Last dose on Lachelle 7/24 at 1125, 1 drop to the operative eye every 5 minutes times 3. Start on the day of surgery., Day of Surgery (Day of Procedure), Routine 1135 (Given - Provid er: Megan Castañeda RN)1137 (Given - Provider: Megan Castañeda RN)1139 (Given - Provider: Megan Castañeda RN) PHENYLephrine (Mydfrin) 2.5 % ophthalmic solution 1 drop (COMPLETED) 1 drop, Left Eye, EVERY 5 MIN, 3 doses, First dose on Lachelle 7/24 at 1115, Last dose on Lachelle 05/18/24 at 1125, 1 drop to the operative eye every 5 minutes times 3. Start on the day of surgery. Do NOT place dilating drops in post-op kit!, Day of Surgery (Day of Procedure), Routine 1112 (Given - Provid er: Meagn Castañeda RN)1115 (Given - Provider: Megan Castañeda RN)1118 (Given - Provider: Megan Castañeda RN) prednisoLONE acetate (Pred-Forte) 1 % suspension 1 drop (COMPLETED) 1 drop, Left Eye, ONCE, 1 dose, On Lachelle 05/18/24 at 1115, 1 drop to the operative eye once. Start on the day of surgery., Day of Surgery (Day of Procedure), Routine 1127 (Given - Provid er: Megan Castañeda RN) Continuous Medication Order 05/16/2024 05/17/2024 05/18/2024 lactated ringers infusion (CANCELED) 1,000 mL, at 100 mL/hr, Intravenous, CONTINUOUS, Starting on Lachelle 05/18/24 at 1115, Until Lachelle 05/18/24 at 1313, Day of Surgery (Day of Procedure) 1150 (New Bag - Prov ider: Megan Castañeda RN) PRN Medication Order 05/16/2024 05/17/2024 05/18/2024 acetaminophen (Tylenol) tablet 650 mg 650 mg, Oral, ONCE PRN, 1 dose, Starting on Lachelle 05/18/24 at 1309, Until Lachelle 05/18/24 at 1514, Pain, Maximum dose of acetaminophen is 4,000 mg from all sources in 24 hours. When ordered for pain, acetaminophen should be given even when other ordered pain medications are indicated., Recovery (Recovery-Hospital Unit), Routine fentaNYL (pf) (50 mcg/mL) multi-dose injection 25 mcg (CANCELED) 25 mcg, Intravenous, EVERY 5 MIN PRN, Starting on Lachelle 05/18/24 at 1056, Until Lachelle 7 at 1313, Pain, Sedation, For use in the Operating Room (OR), Outpatient Surgical Center (OSC), or Special Procedure Room only under direct provider supervision and verbal order. Hold for respiratory rate less than 8 breaths per minute. (maximum dose 100 mcg), Intra-Operative (Intra-Procedure), Routine 1226 (Given - Provid er: Megan Castañeda RN)1233 (Given - Provider: Megan Castañeda RN) midazolam (pf) (Versed) (1 mg/mL) multi-dose injection 0.25-1 mg (CANCELED) 0.25-1 mg, Intravenous, EVERY 5 MIN PRN, Starting on Lachelle 7 at 1056, Until Lachelle 7 at 1313, Anxiety, Sedation, For use in the Operating Room (OR), Outpatient Surgery Center (OSC) or Special Procedure room only with direct provider supervision and verbal order. Hold for delirium/agitation. (Maximum dose 4 mg.), Intra-Operative (Intra-Procedure), Routine 1226 (Given - Provid er: Megan Castañeda RN)1236 (Given - Provider: Megan Castañeda RN) documented in this encounter Care Teams Crystal Mounter Relationship Specialty Start Date End Date Marino Schultz PA [address] [place] [address] PCP - General Internal Medicine 03/14/24 documented as of this encounter
--- OUTSIDE RECORDS SUMMARY | 2024-06-02 00:17 | XMS_ITS | Encounter Summary ---
Author Organization [facility] Address [place] [id number] Care Team Providers Care Panel Monitor Name Role Phone Christin Niño ORLIN Primary Care Provider [phone] Encounter Details Date Type Department Care Team (Late st Contact Info) Description 04/12/2014 Orders Only [facility] [place] [phone] Abner Macias MD [facility] [place] [address] Social History Tobacco Use Types Packs/Day Years [...] 8:45 AM EDT Office [place] [address] Lai Cohen MD [facility] [place] [address] documented as of this encounter Procedures Procedure [...] 05/31/2014 This is a Non-reportable exam Abner Macias MD [facility] FILM LIBRARY ORD ERABLES documented in this encounter Visit Diagnoses Not on filedocumented in this encounter Care Teams Panel Monitor Relationship Specialty Start Date End Date Christin Niño APRN PCP - General 05/30/14 12/20/16 documented as of this encounter
--- OUTSIDE RECORDS SUMMARY | 2024-06-02 00:17 | XMS_ITS | Encounter Summary ---
[facility] Organization [facility] Address [facility] [place] [address] Care Team Providers Care Mac Operator Name Role Phone Marino Schultz Primary Care Provider [phone] Reason for Visit * Reason Onset Date Comments Post Op 05/19/2024 Encounter Details Date Type Department Care Team (Late st Contact Info) Description 05/19/2024 12:30 PM EDT Office [place] [address] Lai Cohen MD [facility] [place] [address] Status post cataract extraction and insertion of intraocular lens, left; Pseudophakia Social History Tobacco Use Types Packs/Day Years Used Date Smoking Tobacco: Former Smokeless Tobacco: Never Alcohol Use Standard Drinks/Week Comments Never 0 (1 standard drink = 0.6 oz pur e alcohol) [facility] Inpatient Questions Answer Date Recorded Does Anyone [...] this encounter Patient Instructions * Patient Instructions* Abbey Ortega - 05/19/2024 12:30 PM EDT Instruction following eye surgery Section of Ophthalmology [facility] 1) AVOID EYE INJURIES: Following eye surgery your eye is more susceptible to injuries. Therefore, special attention has zachariah given to preventing an accidental injury - Do not rub the operative eye - Wear eye protection at all times - glasses or a shield during the day - Shield at night for the first 7 days after surgery. - Do not engage in any activities that could result in a blow to the eye. - Do not engage in any heavy physical activities that cause you to strain. 2) AVOID EYE CONTAMINATION: Following eye surgery your eye is more susceptible to ocular infections. - Wash hands before touching the eye. - Do not swim or bath in contaminated water such as a pond or hot tub. - Wash hands after any contamination such as working in the garden. 3) CALL THE EYE CLINIC WITH ANY WORSENING PAIN, REDNESS, NEW FLASHES NEW FLOATERS OR DECREASING VISION: There is always a doctor computer lab para professional at the eye clinic if you develop a problem as described above, especially in the first 14 days following surgery: 4) USE THE PRESCRIBED EYE DROPs AND BRING THEM FOLLOW UP APPOINTMENTS - Prednisolone acetate (pink or white cap) 1 drop operative eye 4 times a day (Shake before using) - Moxifloxicin (sanchez cap) 1 drop operative eye 4 times a day - Ketorolac (michele cap) 1 drop operative eye 4 times a day 5) BE CAUTIOUS DRIVING YOU RECOVERY FROM EYE SURGERY After you have had eye surgery driving may be more challenging even if your vision as tested in theclinic is relatively good. Be cautious as you return to driving and avoid it if you have any concerns about your ability to safely operate a vehicle. documented in this encounter Progress Notes * Lai Cohen MD - 05/19/2024 12:30 PM EDT Assessment: Encounter Diagnoses Name Primary? Status post cataract extraction and insertion of intraocular lens, left Pseudophakia Rosmery Hernandez is POD#1 cataract surgery in her left eye Did have flacid iris with some prolapse during surgery, but no iris to wound. Has some fibrin in AClikely related to that Also Amblyopic OS Doing well with a normal post operative appearance. Plan: - Prednisolone acetate 1% qid in operative eye - Moxifloxicin qid in operative eye - Ketorolac qid in operative eye - Post op precaution sheet reviewed and given to patient Follow up: - 1 week or as needed. Upon return IOP OU MR operative eye documented in this encounter Plan of Treatment Upcoming Encounters Date Type Department Care Team (Late st Contact Info) Description 06/13/2024 8:45 AM EDT Office [place] [address] Lai Cohen MD [facility] [place] [address] documented as of this encounter Visit Diagnoses Diagnosis Status post cataract extraction and insertion of intraocular lens, left Pseudophakia Lens replaced by other means documented in this encounter Care Teams Mac Operator Relationship Specialty Start Date End Date Marino Schultz PA [address] [place] [address] PCP - General Internal Medicine 03/14/24 documented as of this encounter
--- OUTSIDE RECORDS SUMMARY | 2024-06-02 00:17 | XMS_ITS | Encounter Summary ---
Author Organization [facility] Address [facility] [place] [address] Care Team Providers Care Ballast Cleaning Machine Operator Name Role Phone Marino Schultz Primary Care Provider [phone] Encounter Details Date Type Department Care Team (Late st Contact Info) Description 05/26/2024 3:15 PM EDT Office [place] [address] Lai Cohen MD [facility] [place] [address] Pseudophakia Social History Tobacco Use Types Packs/Day Years Used Date Smoking Tobacco: Former Smokeless Tobacco: Never Alcohol Use Standard Drinks/Week Comments Never 0 (1 standard drink = 0.6 oz pur e alcohol) [facility] Inpatient Questions Answer Date Recorded Does Anyone [...] this encounter Patient Instructions * Patient Instructions* Shelli Watts - 05/26/2024 3:15 PM EDT 1 week post cataract instruction sheet for Lai Cohen MD - Stop Moxifloxacin eye drop (sanchez cap) - Continue prednisolone acetate (pink or white cap) and ketorolac (michele) three times a day in the operative eye until follow up appointment or until they run out. - Can stop wearing eye shield at night - Can generally resume normal activity, but still avoid any activities which could result in an injury to the eye - Call the eye clinic ([phone]) for any eye problems (increasing pain, decreasing vision, new flashes or new floaters) - Caution with driving as your eye recovers from cataract surgery documented in this encounter Progress Notes * Lai Cohen MD - 05/26/2024 3:15 PM EDT Assessment: Encounter Diagnosis Name Primary? Pseudophakia Rosmery Hernandez is status post cataract surgery last week Doing well with a normal post operative appearance Longstanding amblyopia- she reports that she feels the vision is better than pre op. She feels thisis as good as her vision will get. Plan: - Prednisolone acetate 1% tid in operative eye for 3 weeks - Stop Moxifloxicin - Ketorolac tid in operative eye for 3 weeks Follow up: - ~3 weeks or as needed. Upon Return IOP OU MR OU Dilate operative eye documented in this encounter Plan of Treatment Upcoming Encounters Date Type Department Care Team (Late st Contact Info) Description 06/13/2024 8:45 AM EDT [place] [address] Lai Cohen MD [facility] [place] [address] documented as of this encounter Visit Diagnoses Diagnosis Pseudophakia Lens replaced by other means documented in this encounter Care Teams Ballast Cleaning Machine Operator Relationship Specialty Start Date End Date Marino Schultz PA [address] [place] [address] PCP - General Internal Medicine 03/14/24 documented as of this encounter
--- OUTSIDE RECORDS SUMMARY | 2024-06-02 00:17 | XMS_ITS | Encounter Summary ---
Author Organization [facility] Address [facility] [place] [address] Care Team Providers Care Quarter Trimmer Name Role Phone Ramsey Garrett DNP Primary Care Provider Encounter Details Date Type Department Care Team (Late st Contact Info) Description 06/16/2019 6:30 PM EDT Ancillary Procedure [place]iology [place] [address] Justina Mccoy MD [facility] [place] [address] Social History Tobacco Use Types Packs/Day Years [...] 8:45 AM EDT Office [place] [address] Lai Cohen MD [facility] [place] [address] documented as of this encounter Procedures Procedure Name Priority Date/Time Associated Diagnosis Comments FILM LIBRARY STORAGE ONLY ULTRASOUND STUDY Routine 06/16/2019 6:29 PM EDT documented in this encounter Results * Film Library- Storage Only Ultrasound Study (06/16/2019 6:29 PM EDT) Narrative PAVAN VELASQUEZ - 06/16/2019 6:29 PM EDT This exam is auto-finalizing. It's purpose is for storage only. Justina Mccoy MD IMG FILM LIBRARY ORD ERABLES [place], [place] documented in this encounter Visit Diagnoses Not on filedocumented in this encounter Care Teams Quarter Trimmer Relationship Specialty Start Date End Date Ramsey Garrett DNP [address] [place], [place] [address] [place] [address] PCP - General Family Medicine 03/16/19 03/13/24 documented as of this encounter
--- OUTSIDE RECORDS SUMMARY | 2024-06-02 00:17 | XMS_ITS | Encounter Summary ---
Author Organization [facility] Address [facility] [place] [address] Care Team Providers Care Refrigeration Service Technician Name Role Phone Ramsey Garrett DNP Primary Care Provider Reason for Visit * Consultation (Routine) - Specialty Diagnoses / Procedures Referred By Contsubhash t Referred To Contact Nephrology Diagnoses Abnormal results of kidney function studies Chronic kidney disease, stage 3 (moderate) Ramsey Garrett DNP [address] [place] [address] [facility] [address] [place] [id number] Referral ID Status Reason Start Date Expiration Date V isits Requested Visits Authorized [id number] Consult, Test & Treat Connection [facility] 05/01/2019 08/01/2019 6 6 Encounter Details Date Type Department Care Team (Latest Contact Info) Description 06/15/2019 10:30 AM EDT Office Visit [place] [address] Justina Mccoy MD [facility] [place] [address] Urinary tract infection without hematuria, [...] Additional data were obtained from the [facility] records (eDH and CIS) and the referring [...] has gastroparesis Other Social and Habits 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 ??? PLANT STANOL SEHRRIE (CHOLEST OFF ORAL) Take by mouth daily. [...] studies: No renal imaging: Ultrasound ordered at [place] Urinalysis and microscopy: Renal clinic laboratory Urine [...] 8:45 AM EDT Office [place] [address] Lai Cohen MD [facility] [place] [place] [address] documented as of this encounter Procedures Procedure Name Priority Date/Time Associated Diagnosis Comments HC VENIPUNCTURE Routine 06/15/2019 11:15 AM EDT Urinary tract infection without hematuria, site unspecified Elevated serum creatinine BASIC METABOLIC PANEL Routine 06/15/2019 11:15 AM EDT Urinary tract infection without hematuria, site unspecified Elevated serum creatinine HC MICROALBUMIN, URINE Routine 06/15/2019 10:30 AM EDT Urinary tract infection without hematuria, site unspecified documented in this encounter Results * Protein Electrophoresis, serum (06/15/2019 11:15 AM EDT) Pathologist [facility] Total Prot Electrophoresis 7.7 6.1 - 8.0 gm/dL [facility] Albumin Electrophoresis 4.71 3.60 - 6.00 gm/dL [facility] Alpha 1 Globulin 0.19 0.10 - 0.30 gm/dL [facility] Alpha 2 Globulin 0.81 0.40 - 0.90 gm/dL [facility] Beta Globulin 0.89 0.50 - 1.00 gm/dL [facility] Gamma Globulin 1.09 0.50 - 1.30 gm/dL [facility] M1 Band None Detected None Detected [facility] Blood specimen (specimen) 06/15/2019 11:15 AM EDT 06/15/2019 11:36 AM EDT Narrative Resulting Agency Comment Spec In Lab Justina Mccoy MD CHEMISTRY ORDERABLES [facility] [place] [address] * (ABNORMAL) Basic Metabolic Panel (non-fasting) (06/15/2019 11:15 AM EDT) [facility] Glucose 101 65 - 199 mg/dL [facility] Comment:Diabetes: >=200 mg/d L plus symptoms Blood Urea Nitrogen 17 8 - 18 mg/dL [facility] Creatinine 1.01 0.70 - 1.20 mg/dL [facility] Sodium 140 135 - 145 mmol/L [facility] Potassium 4.3 3.5 - 5.0 mmol/L [facility] Comment: Please note: ??Patients with WBC >100,000 may have falsely elevated Potassium levels. ??For accurate Potassium quantification in these patients send serum separator tube (gold top) for subsequent determinations. ??Contact the Clinical Chemistry Laboratory if there are any questions. Chloride 104 98 - 107 mmol/L [facility] Carbon Dioxide 28 22 - 31 mmol/L [facility] Anion Gap 8 5 - 15 mmol/L [facility] Calcium 9.8 8.5 - 10.5 mg/dL [facility] Est Glomerular Filtration Rate 57(L) >=60 mL/min/1. 73 m?? [facility] Comment: The eGFR was calculated using the CKD-EPI equation. As with all creatinine based estimates of kidney function, eGFR values calculated with the CKD-EPI equation are not accurate in patients with acute kidney failure, extremes of body mass or the acutely ill. [email or web address]/[facility] eGFR 66 >=60 mL/min/1. 73 m?? [facility] Comment: The eGFR was calculated using the CKD-EPI equation. As with all creatinine based estimates of kidney function, eGFR values calculated with the CKD-EPI equation are not accurate in patients with acute kidney failure, extremes of body mass or the acutely ill. [email or web address] Blood specimen (specimen) 06/15/2019 11:15 AM EDT 06/15/2019 11:36 AM EDT Narrative Resulting Agency Comment Spec In Lab Justina Mccoy MD CHEMISTRY ORDERABLES [facility] [place] [address] * U Albumin/Cre Ratio (06/15/2019 10:30 AM EDT) Albumin / Creatinin Ratio, Urine Not Calculated 0 - 29 mcg/mg Cr [facility] Comment: Reference Ranges: <30 [...] [employer] Supplements (2012) 2, [phone] 362 Albumin, Urine <3.0 mg/L [facility] Creatinine, Urine 19 mg/dL [facility] Urine specimen (specimen) 06/15/2019 10:30 AM EDT 06/15/2019 11:36 AM EDT Narrative Resulting Agency Comment Spec In Lab Justina Mccoy MD URINE ORDERABLES Performing Organization Address City/State/[facility] Co de Phone Number [facility] [address] documented in this encounter Visit Diagnoses Diagnosis Urinary tract infection without hematuria, site unspecified Elevated serum creatinine Other nonspecific findings on examination of blood documented in this encounter Care Teams Refrigeration Service Technician Relationship Specialty Start Date End Date Ramsey Garrett DNP [address] [place] [address] PCP - General Family Medicine 03/16/19 03/13/24 documented as of this encounter
--- OUTSIDE RECORDS SUMMARY | 2024-06-02 00:17 | XMS_ITS | Continuity of Care Document ---
Author Organization [place] - [facility] [place] [address] Care Team Providers Care Scalp Treatment Operator Name Role Phone SHAYYCherelleAMILCAR Card Player Assessment Encounter Date Assessment Date Assessment LastModified [...] Organization Details Last Modified Time Details Appointments Medicare Annual Wellness 40 2024 09:30A M MARINO SCHULTZ Not available Not available Not available Lab None recorded. Referral None recorded. Procedures None recorded. Surgeries None recorded. Imaging MAMMO, screening , bilateral - screening mammogram 2023 07/17/2 024 [email or web address] [facility] (Radiology), [address] [place], [address], 05/11/2024 15:05:35 Medication Orders None recorded. Patient TargetsNo targets recorded. Patient Instructions Encounter Date Encounter Id Patient Instructions Last Modified By Organization Details Last Modified Time 03/07/2024 [id number] Rosmery - we will schedule a mammogram in April. Rosmery - have the lab copy me on your blood work today. Avoid nsaids such as ibuprofen, advil, or aleve due to the shea's. I will see you back for your cataract preop. [email or web address] Not available 03/07/2024 09:59:41 Discussed and explained advance directives such as standard forms to the {{patient caregiv er patient and caregiver}}. Face to face discussion lasted for a duration of ___ minutes. [email or web address] Not available 03/07/2024 08:35:49 Reason for Referral None Reported. Results Created Date Observation Date Name Description Value Unit Range Abnormal Flag LastModifiedBy Organization Detail LastModifiedTime 05/11/20 24 05/11/2024 MAMMO , scree herbert, bilat eral Patiwilmar t Name: Jan Hernandez I Unit #: [id number] Loc: DI Orderi ng Provid er: Erwin onBetty tobias Accoun t #: [id number] Status : REG CLI Primar [...] notify ing them of these result s. Price d By: Betty Sumner CC: ------ ------ [...] report in error, please notify us immedi ramandeep at and return the origin al report to us at the addres s above. Thank- you. [email or web address] [facility] (Radiology) [address] , [place], [address], 05/12/2024 10:37:47 Result Notes None recorded. Problems Name Status Onset Date Resolution Date Notes Provider Name and Address Organization Details Recorded Time Fibromyalgia Active 2008 Problem Code: M79.7; Problem Code Type: ICD-10; Not Available [facility] 3 05:53:28 Senile osteoporosis Active 200805/03/2023 - Comments only - Marino Schultz RPA - unchanged on 2022 dexa. Problem Code: M81.0; Problem Code Type: ICD-10; Not Available [facility] 3 05:53:29 Hyperlipidemi a Active 200809/25/2022 - Comments only - Marino Antoine BANKS - does not want to take statin. May be open to zetia but she would like lipids checked first. Fasting lipids in 3 days. She is taking cholestoff 3 tablets daily. Problem Code: E78.5; Problem Code Type: ICD-10; Not Available [facility] 3 05:53:29 Essential hypertension Active 200909/25/2022 - Comments only - Marino Schultz RPA - well controlled on lisinopril. Problem Code: I10; Problem Code Type: ICD-10; [address], [place], [address] , [facility]. 4 17:32:06 Hyperlipidemi a screening Completed 201504/23/2016 Problem Code: Z13.220; Problem Code Type: ICD-10; Not Available [facility] 3 05:53:29 Diabetes mellitus screening Completed 201504/23/2016 Problem Code: Z13.1; Problem Code Type: ICD-10; Not Available [facility] 3 05:53:29 Screening for malignant neoplasm of breast Completed 201504/23/2016 Problem Code: Z12.39; Problem Code Type: ICD-10; Not Available [facility] 3 05:53:29 Increased frequency of urination Completed 201803/08/2019 Problem Code: R35.0; Problem Code Type: ICD-10; Not Available [facility] 3 05:53:30 Mitral valve regurgitation Active 2018 on 2018 echo Problem Code: I34.0; Problem Code Type: ICD-10; MARINO SCHULTZ PA-C [address], [place], [address] , [facility] 4 17:33:07 Shea's esophagus Active 2018 Present on [address] Gonzalez Problem Code: K22.70; Problem Code Type: ICD-10; [address], [place], [address] [facility] 4 09:28:58 Adult health examination Active 2018 Problem Code: Z00.00; Problem Code Type: ICD-10; Not Available [facility] 3 05:53:31 Vitamin D deficiency Active 2019 Problem Code: E55.9; Problem Code Type: ICD-10; Not Available [facility] 3 05:53:31 Posttraumatic stress disorder Active 2020 Problem Code: F43.10; Problem Code Type: ICD-10; Not Available [facility] 3 05:53:31 Screening for malignant neoplasm of breast Active 202004/21/2021 - Comments only - Marino Schultz RPA - She is overdue for screening mammogram. Problem Code: Z12.39; Problem Code Type: ICD-10; Not Available [facility] 3 05:53:32 Viral screening Completed 202108/24/2023 Problem Code: Z11.59; Problem Code Type: ICD-10; Not Available [facility] 4 05:37:18 Neck pain Active 202103/30/2023 - Comments only - Marino Schultz RPA - C3-4 and C4-5 left sided stenosis on 02/2023 MRI Problem Code: M54.2; Problem Code Type: ICD-10; Not Available [facility] 3 05:53:32 Collagenous colitis Active 202109/25/2022 - Comments only - Marino Schultz RPA - recent weight loss due to exacerbation that is now under better control. Follows with Dr. Gonzalez. Treated with a 2 week course of pepto bismol. Problem Code: K52.831; Problem Code Type: ICD-10; Not Available [facility] 3 05:53:32 Candidiasis Completed 202108/24/2023 Problem Code: B37.9; Problem Code Type: ICD-10; Not Available [facility] 4 05:37:17 Abnormal weight loss Completed 201804/21/2019 Problem Code: R63.4; Problem Code Type: ICD-10; Not Available [facility] 3 05:53:38 Cellulitis Completed 201402/22/2019 Problem Code: L03.90; Problem Code Type: ICD-10; Not Available [facility] 3 05:53:38 Disorder of skin and/or subcutaneous tissue Completed 201804/21/2021 Problem Code: L98.8; Problem Code Type: ICD-10; Not Available [facility] 3 05:53:39 Hypertensive disorder Completed 200907/21/2023 Not Available [facility] 3 05:53:39 Hyperlipidemi a screening Completed 201907/18/2020 Problem Code: Z13.220; Problem Code Type: ICD-10; Not Available [facility] 3 05:53:40 Renal function tests outside reference range Completed 201607/18/2020 Problem Code: R94.4; Problem Code Type: ICD-10; Not Available [facility] 3 05:53:40 Fibromyositis Completed 200807/21/2023 Not Available [facility] 3 05:53:41 At risk - finding Completed 201904/21/2021 Problem Code: Z91.89; Problem Code Type: ICD-10; Not Available [facility] 3 05:53:41 Increased frequency of urination Completed 201804/21/2019 Problem Code: R35.0; Problem Code Type: ICD-10; Not Available [facility] 3 05:53:42 Urgent desire to urinate Completed 201804/21/2019 Problem Code: R39.15; Problem Code Type: ICD-10; Not Available [facility] 3 05:53:42 Neck pain Completed 201304/21/2019 Problem Code: M54.2; Problem Code Type: ICD-10; Not Available [facility] 3 05:53:43 Chalazion Completed 201412/03/2017 Problem Code: H00.19; Problem Code Type: ICD-10; Not Available [facility] 3 05:53:43 Chronic pain Completed 200803/14/2019 Problem Code: G89.29; Problem Code Type: ICD-10; Not Available [facility] 3 05:53:45 Diarrhea Completed 201704/21/2019 Not Available [facility] 3 05:53:46 Osteoporosis Completed 200807/21/2023 09/25/2022 - Comments only - Marino Schultz RPA - Bone density when she returns from [place] next spring. Intolerant of bisphosphonat es. Takes calcium, vitamin d, and collagen. She has a lot of macho in supplements. Not Available [facility] 3 05:53:46 Urinary tract infectious disease Completed 201804/21/2019 Problem Code: N39.0; Problem Code Type: ICD-10; Not Available [facility] 3 05:53:47 Pre-surgery evaluation Completed 201412/03/2017 Problem Code: Z01.818; Problem Code Type: ICD-10; Not Available [facility] 3 05:53:48 Backache Completed 200807/21/2023 Not Available [facility] 3 05:53:48 Hemorrhoids Completed 200807/21/2023 Not Available [facility] 3 05:53:48 Dysuria Completed 201804/21/2019 Problem Code: R30.0; Problem Code Type: ICD-10; Not Available [facility] 3 05:53:48 Depressive disorder Completed 200807/21/2023 Not Available [facility] 3 05:53:49 Adult health examination Completed 201404/21/2019 Problem Code: Z00.00; Problem Code Type: ICD-10; Not Available [facility] 3 05:53:50 Disorder of skin and/or subcutaneous tissue Completed 201602/22/2019 Problem Code: L98.9; Problem Code Type: ICD-10; Not Available [facility] 3 05:53:50 Fatigue Completed 201804/21/2019 Problem Code: R53.83; Problem Code Type: ICD-10; Not Available [facility] 3 05:53:51 Renal insufficiency Active 2023 mild, stable [address], [place], [address] , [facility] 4 17:31:47 Notes:*Problem Name: Partial Blindness Os, S/p Strabismus Surg Age 5 *ICD-10 Codes: *Problem Status: active *Comments: *Note Date: 07/19/2009 Problem Notes None recorded. Procedures Surgical History None recorded. Imaging Results Imaging Date Name Status LastModified by Organiz ation Details LastModified Time 05/11/2024 MAMMO, screening, bilateral completed [email or web address] [facility] (Radiology) [address] , [place], [address], 05/12/2024 10:37:47 Procedure Notes None recorded. Medical Equipment None Reported. Allergies Allergen ID Allergen Name Allergen Category Reaction Reaction Severity Criticality Documentation Date Start Date Code Code System Note Provider Name and Address Organization Details Recorded Time 27083 sulfadiaz ine medicatio n Not available Not available Not available 09/03/20232018 16834 RxNorm Not Available [facility] 3 16:22:00 Medications Name Sig Start [...] Updated DateTime 4 153.67 cm 26.9 kg/m2 24781.9 3 g 98.8 [degF] 100 % 100 % 16 /min 90 /min 142 mm[Hg] 66 mm[Hg] VELMA JALLOH RN [facility] 4 09:33:23 Social History Question Answer Notes LastModified by Organizat ion Details LastModified Time Tobacco Smoking Status Former Smoker VELMA JALLOH RN [facility], [facility] 03/07/2024 09:28:40 When Did You Quit Smoking? 16+yearssincel astcigartiana Information not available 03/07/2024 Date Of Most [...] And Wanted Help? (For Example, If You [place] Very Nervous, Lonely, Or Blue; Got Sick [...] Safety Concerns In Your Home (see Attached [facility] Pamphlet)? No Information not available 03/07/2024 How [...] Recorded Time MMR 02/12/2006 completed Not Available [facility] 04:23:35 MMR 03/10/2006 completed Not Available [facility] 04:23:36 Td (adult), 2 Lf tetanus toxoid, preservative free, adsorbed 07/20/2019 completed Not Available [facility] 09/03/2023 04:23:36 Tdap 10/22/2008 completed Not Available [facility] 04:23:38 Pneumococcal conjugate PCV 13 04/19/2015 completed Not Available [facility] 09/03/2023 04:23:39 Influenza, high-dose, trivalent, PF 07/20/2019 completed Not Available [facility] 09/03/2023 04:23:39 Td(adult) unspecified formulation 09/03/2002 completed Not Available [facility] 09/03/2023 04:23:40 Influenza, split virus, trivalent, preservative 10/04/2015 completed Not Available [facility] 09/03/2023 04:23:40 Influenza, high-dose, quadrivalent, PF 07/23/2020 completed Not Available [facility] 09/03/2023 04:23:42 pneumococcal polysaccharide PPV23 01/24/2009 completed Not Available [facility] 2022 04:23:46 pneumococcal polysaccharide PPV23 04/18/2020 completed Not Available [facility] 2022 04:23:47 influenza, unspecified formulation 07/20/2013 completed Not Available [facility] 09/03/2023 04:23:47 Past Encounters Encounter ID Performer Location Encounter Start Date Encounter Closed Date Diagnosis/Indication Diagnosis SNOMED-CT Code [id number] MARINO SCHULTZ PA-C [place] [address] [place] [address] 03/07/2024 09:15:35 03/07/2024 10:02:25 Adult health examination [id number] Screening mammography 24 857193 Health Concerns Section Related Observation LastModified by Organization Detai ls LastModified Time None Recorded Concern Status LastModified by Organization Details LastModified Time None Recorded Payers Encounter Date Sequence Insurance Name Policy Number Policy Neil Covered Member ID Neil Member ID Guarantor Name 03/07/2024 2 [employer] (MEDICARE SUPPLEMENT) Rosmery Hernandez [id number] Rosmery Hernandez 03/07/2024 1 MEDICARE [place]: [facility] Rosmery Hernandez [id number] Rosmery Hernandez Notes Date Note Type [...] is doing okay. She had to leave [place] early due to sons recent illness. He was hospitalized with encephalitis. She had a good winter. No significant illnesses. No injuries. [address], [place], [address], [facility]. 03/07/2024 15:54:17 OBGyn Episode No OBEpisode recorded.
--- OUTSIDE RECORDS SUMMARY | 2024-06-02 00:17 | XMS_ITS | Encounter Summary ---
[place] [address] Care Team Providers Care Resident Care Manager Name Role Phone Christin Nñio Samantha ORDAZ Primary Care Provider [phone] Reason for Visit * Reason Comments Neck And Back Pain Encounter Details Date Type Department Care Team (Late st Contact Info) Description 06/28/2014 9:15 AM EDT Office [place] [address] Megha Carrero APRN [facility] [place] [address] Cervical spondylosis without myelopathy (Primary Dx) Discharge [...] free. Sustained Spurling's maneuver is negative bilaterally. Yard Foreman strength and thumb strength are 5/5 bilaterally. [...] participate in the care of this patient. Mehga Carrero MS, ORLIN, [employer]ER-C [facility] documented in this encounter Plan of Treatment Upcoming Encounters Date Type Department Care Team (Late st Contact Info) Description 06/13/2024 8:45 AM EDT Office [place] [address] Lai Cohen MD [facility] [place] [address] documented as of this encounter Visit Diagnoses Diagnosis Cervical spondylosis without myelopathy- Primary documented in this encounter Care Teams Resident Care Manager Relationship Specialty Start Date End Date Christin Niño APRN PCP - General 05/30/14 12/20/16 documented as of this encounter
--- OUTSIDE RECORDS SUMMARY | 2024-06-02 00:17 | XMS_ITS | Encounter Summary ---
Author Organization [facility] Address [address] [place] [address] Care Team Providers Care President And Ceo Name Role Phone Unknown, Provider Primary Care Provider Encounter Details Date Type Department Care Team (Late st Contact Info) Description 04/05/2017 Results Only [facility] [phone] Radhika Riojas, [address] [place], [place] [id number] Social History Tobacco Use Types Packs/Day Years [...] ? ROSMERY BOND ? Accession #: ? [id number] ? : ? 1950 (Age: 67) ??F ? Collect Date: ? 04/05/2017 ? Location: ? [facility] ? Receive Date: ? 04/06/2017 ? Provider: RADHIKA RIOJAS DO Copy to: CLARA BANG FOUNDRY MELT SUPERVISOR ? Final Pathologic Diagnosis: A. SKIN OF [...] (ASCP) 04/06/2017 10:10 AM End of Report [facility] 04/05/2017 8:50 EDT 04/06/2017 8:50 EDT Radhika Riojas DO PATHOLOGY ORDER OPAL [facility] [address] [place] [address] documented in this encounter Visit Diagnoses Not on filedocumented in this encounter Care Teams President And Ceo Relationship Specialty Start Date End Date Unknown, Provider, PCP - General 04/06/17 04/07/17 documented as of this encounter
--- OUTSIDE RECORDS SUMMARY | 2024-06-02 00:17 | XMS_ITS | Continuity of Care Document ---
Author Organization [facility] Address [place] [address] Care Team Providers Care Torpedo Specialist Name Role Phone AMILCAR GONZALEZ Central Office Worker Assessment No assessment recorded. Plan of Treatment Reminders Order Date Submit Date Provider Last Modified By Organization Details Last Modified Time Details Appointments Medicare Annual Wellness 40 2024 09:30A M MARINO SCHULTZ Not available Not available Not available Lab CBC 2023 024 [facility] (Registration ), [address] [place] [address] [facility] [place], [address], 05/11/2024 17:42:24 hepatic function panel, serum 2023 024 [facility] (Registration ), [address] [place] [address] [facility] [place], [address], 05/11/2024 18:09:37 PT/PTT, plasma 2023 024 [facility] (Registration ), [address] [place] [address] [place] [facility] [place], [address], 05/18/2024 08:16:31 Referral None recorded. Procedures None recorded. Surgeries None recorded. Imaging US, renal - renal insuffici ency 2023 024 [facility] (Radiology), [address] [place] [address] [place], [address], 05/25/2024 09:46:46 Medication Orders None recorded. Patient TargetsNo targets recorded. Patient Instructions Encounter Date Encounter Id Patient Instructions Last Modified By Organization Details Last Modified Time 05/11/2024 [id number] Dae estes with surgery. I will call you with results of todays blood work. We will schedule a kidney ultrasound as well. [email or web address] Not available 05/11/2024 11:28:20 Reason for Referral None Reported. Results Created Date Observation Date Name Description Value Unit Range Abnormal Flag LastModifiedBy Organization Detail LastModifiedTime 05/11/20 24 05/11/2024 COMPL ETE BLOOD COUNT NO DIFF WBC 6.24 10_3/ uL 4.4-10 .8 normal Not Available [address] [place], [address] 05/11/2024 17:42:24 05/11/20 24 05/11/2024 COMPL ETE BLOOD COUNT NO DIFF RBC 4.26 10_6/ uL 3.93-5 .22 normal Not Available [address] [place], [address] 05/11/2024 17:42:24 05/11/20 24 05/11/2024 COMPL ETE BLOOD COUNT NO DIFF HGB 13.2 g/dL 11.2-1 5.7 normal Not Available [address] [place], [address] 05/11/2024 17:42:24 05/11/20 24 05/11/2024 COMPL ETE BLOOD COUNT NO DIFF HCT 41.1 % 36.0-4 6.0 normal Not Available [address] [place], [address] 05/11/2024 17:42:24 05/11/20 24 05/11/2024 COMPL ETE BLOOD COUNT NO DIFF MCV 97 fL 80-95 high Not Available [place] [address] [place], [address] 05/11/2024 17:42:24 05/11/20 24 05/11/2024 COMPL ETE BLOOD COUNT NO DIFF MCH 31.0 pg 27.0-3 3.0 normal Not Available [address] [place], [address] 05/11/2024 17:42:24 05/11/20 24 05/11/2024 COMPL ETE BLOOD COUNT NO DIFF MCHC 32.1 % 32.0-3 6.0 normal Not Available [address] [place], [address] 05/11/2024 17:42:24 05/11/20 24 05/11/2024 COMPL ETE BLOOD COUNT NO DIFF RDW 13.5 % 11.7-1 4.6 normal Not Available [address] [place], [address] 05/11/2024 17:42:24 05/11/20 24 05/11/2024 COMPL ETE BLOOD COUNT NO DIFF platelet count 271 10_3/ uL 130-40 0 normal Not Available [address] [place], [address] 05/11/2024 17:42:24 05/11/20 24 05/11/2024 COMPL ETE BLOOD COUNT NO DIFF MPV 10.3 fL 8.0-11 .0 normal Not Available [address] [place], [address] 05/11/2024 17:42:24 05/11/20 24 05/11/2024 LIVER PANEL total protein 7.7 g/dL 6.4-8. 2 normal Not Available [address] [place], [address] 05/11/2024 18:09:37 05/11/20 24 05/11/2024 LIVER PANEL albumin 3.9 g/dL 3.4-5. 0 normal Not Available [address] [place], [address] 05/11/2024 18:09:37 05/11/20 24 05/11/2024 LIVER PANEL bilirubin, total 0.44 mg/dL 0.2-1. 0 normal Not Available [address] [place], [address] 05/11/2024 18:09:37 05/11/20 24 05/11/2024 LIVER PANEL alk phos 67 U/L 46-116 normal Not Available [address] [place], [address] 05/11/2024 18:09:37 05/11/20 24 05/11/2024 LIVER PANEL AST 18 U/L 15-37 normal Not Available [address] [place], [address] 05/11/2024 18:09:37 05/11/20 24 05/11/2024 LIVER PANEL ALT 20 U/L 14-59 normal Not Available [address] [place], [address] 05/11/2024 18:09:37 05/11/20 24 05/11/2024 LIVER PANEL bilirubin, conjugated 0.1 mg/dL 0.0-0. 2 normal Not Available [address] [place], [address] 05/11/2024 18:09:37 05/11/20 24 05/11/2024 PROTH ROMBI N TIME prothrombin time 8.9 sec 9.1-11 .1 low Not Available [facility] (Registration ) [address] [place] [address] [place], [address], 05/11/2024 18:22:39 05/11/20 24 05/11/2024 PROTH ROMBI N TIME INR 0.9 0.9-1. 1 normal Not Available [facility] (Registration ) [address] [place] [address] [facility] [place], [address], 05/11/2024 18:22:39 05/11/20 24 05/11/2024 MAMMO , scree herbert, bilat edenilsonl Rich t Name: HernandezJan I Unit #: [id number] Loc: DI Orderi [facility] er: Erwin on,Betty tobias Accoun t #: [id number] Status : REG CLI Primar [...] ing them of these result s. Price garcía By: Betty Sumner CC: ------ ------ ------ ------ ------ ------ ------ ------ ------ ------ ------ ------ - Dictat ed By: Amilcar Min M.D. 1324 1324 Transc ribed By: Jeffy Min MD 1324 This is privil eged, confid ential inform ation intend ed only for the provid er named. Any use or distri bution by any person other than this provid er is strict ly prohib ited. If you receiv e this report in error, please notify us immedi tramly at [phone] and return the origin al report to us at the addres s above. Thank- you. [email or web address] [facility] (Radiology) [address] [facility] , [place], [address], 05/12/2024 10:37:47 Result Notes None recorded. Problems Name Status Onset Date Resolution Date Notes Provider Name and Address Organization Details Recorded Time Fibromyalgia Active 2008 Problem Code: M79.7; Problem Code Type: ICD-10; Not Available [facility] 3 05:53:28 Senile osteoporosis Active 200805/03/2023 - Comments only - Marino Schultz RPA - unchanged on 2022 dexa. Problem Code: M81.0; Problem Code Type: ICD-10; Not Available [facility] 3 05:53:29 Hyperlipidemi a Active 200809/25/2022 - Comments only - Marion Antoine BANKS - does not want to take statin. May be open to zetia but she would like lipids checked first. Fasting lipids in 3 days. She is taking cholestoff 3 tablets daily. Problem Code: E78.5; Problem Code Type: ICD-10; Not Available [facility] 3 05:53:29 Essential hypertension Active 200909/25/2022 - Comments only - Marino Schultz RPA - well controlled on lisinopril. Problem Code: I10; Problem Code Type: ICD-10; [address], [place], [address] , [place] - [facility] 4 17:32:06 Hyperlipidemi a screening Completed 201504/23/2016 Problem Code: Z13.220; Problem Code Type: ICD-10; Not Available [facility] 3 05:53:29 Diabetes mellitus screening Completed 201504/23/2016 Problem Code: Z13.1; Problem Code Type: ICD-10; Not Available [facility] 3 05:53:29 Screening for malignant neoplasm of breast Completed 201504/23/2016 Problem Code: Z12.39; Problem Code Type: ICD-10; Not Available [facility] 3 05:53:29 Increased frequency of urination Completed 201803/08/2019 Problem Code: R35.0; Problem Code Type: ICD-10; Not Available [facility] 3 05:53:30 Mitral valve regurgitation Active 2018 on 2018 echo Problem Code: I34.0; Problem Code Type: ICD-10; [address], [place], [address] , [facility] 4 17:33:07 Campos's esophagus Active 2018 Present on [address] Gonzalez Problem Code: K22.70; Problem Code Type: ICD-10; [address], [place], [address] , [facility] 4 09:28:58 Adult health examination Active 2018 Problem Code: Z00.00; Problem Code Type: ICD-10; Not Available [facility] 3 05:53:31 Vitamin D deficiency Active 2019 Problem Code: E55.9; Problem Code Type: ICD-10; Not Available [facility] 3 05:53:31 Posttraumatic stress disorder Active 2020 Problem Code: F43.10; Problem Code Type: ICD-10; Not Available [facility] 3 05:53:31 Screening for malignant neoplasm of breast Active 202004/21/2021 - Comments only - Marino Antoine RPA - She is overdue for screening mammogram. 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 Follows with Dr. Gonzalez. Treated with a 2 week course of pepto bismol. Problem Code: K52.831; Problem Code Type: ICD-10; Not Available [facility] 3 05:53:32 Candidiasis Completed 202108/24/2023 Problem Code: B37.9; Problem Code Type: ICD-10; Not Available [facility] 4 05:37:17 Abnormal weight loss Completed 201804/21/2019 Problem Code: R63.4; Problem Code Type: ICD-10; Not Available [facility] 3 05:53:38 Cellulitis Completed 201402/22/2019 Problem Code: L03.90; Problem Code Type: ICD-10; Not Available [facility] 3 05:53:38 Disorder of skin and/or subcutaneous tissue Completed 201804/21/2021 Problem Code: L98.8; Problem Code Type: ICD-10; Not Available [facility] 3 05:53:39 Hypertensive disorder Completed 200907/21/2023 Not Available [facility] 3 05:53:39 Hyperlipidemi a screening Completed 201907/18/2020 Problem Code: Z13.220; Problem Code Type: ICD-10; Not Available [facility] 3 05:53:40 Renal function tests outside reference range Completed 201607/18/2020 Problem Code: R94.4; Problem Code Type: ICD-10; Not Available [facility] 3 05:53:40 Fibromyositis Completed 200807/21/2023 Not Available [facility] 3 05:53:41 At risk - finding Completed 201904/21/2021 Problem Code: Z91.89; Problem Code Type: ICD-10; Not Available [facility] 3 05:53:41 Increased frequency of urination Completed 201804/21/2019 Problem Code: R35.0; Problem Code Type: ICD-10; Not Available [facility] 3 05:53:42 Urgent desire to urinate Completed 201804/21/2019 Problem Code: R39.15; Problem Code Type: ICD-10; Not Available [facility] 3 05:53:42 Neck pain Completed 201304/21/2019 Problem Code: M54.2; Problem Code Type: ICD-10; Not Available [facility] 3 05:53:43 Chalazion Completed 201412/03/2017 Problem Code: H00.19; Problem Code Type: ICD-10; Not Available [facility] 3 05:53:43 Chronic pain Completed 200803/14/2019 Problem Code: G89.29; Problem Code Type: ICD-10; Not Available [facility] 3 05:53:45 Diarrhea Completed 201704/21/2019 Not Available [facility] 3 05:53:46 Osteoporosis Completed 200807/21/2023 09/25/2022 - Comments only - Marino Schultz RPA - Bone density when she returns from [place] next spring. Intolerant of bisphosphonat es. Takes calcium, vitamin d, and collagen. She has a lot of macho in supplements. Not Available [facility] 3 05:53:46 Urinary tract infectious disease Completed 201804/21/2019 Problem Code: N39.0; Problem Code Type: ICD-10; Not Available [facility] 3 05:53:47 Pre-surgery evaluation Completed 201412/03/2017 Problem Code: Z01.818; Problem Code Type: ICD-10; Not Available [facility] 3 05:53:48 Backache Completed 200807/21/2023 Not Available [facility] 3 05:53:48 Hemorrhoids Completed 200807/21/2023 Not Available [facility] 3 05:53:48 Dysuria Completed 201804/21/2019 Problem Code: R30.0; Problem Code Type: ICD-10; Not Available [facility] 3 05:53:48 Depressive disorder Completed 200807/21/2023 Not Available [facility] 3 05:53:49 Adult health examination Completed 201404/21/2019 Problem Code: Z00.00; Problem Code Type: ICD-10; Not Available [facility] 3 05:53:50 Disorder of skin and/or subcutaneous tissue Completed 201602/22/2019 Problem Code: L98.9; Problem Code Type: ICD-10; Not Available [facility] 3 05:53:50 Fatigue Completed 201804/21/2019 Problem Code: R53.83; Problem Code Type: ICD-10; Not Available [facility] 3 05:53:51 Renal insufficiency Active 2023 mild, stable MARINO SCHULTZ PA-C [address], [place], [address] , [facility] 4 17:31:47 Notes:*Problem Name: Partial Blindness Os, S/p Strabismus Surg Age 5 *ICD-10 Codes: *Problem Status: active *Comments: *Note Date: 07/19/2009 Problem Notes None recorded. Medical Equipment None Reported. Allergies Allergen ID Allergen Name Allergen Category Reaction Reaction Severity Criticality Documentation Date Start Date Code Code System Note Provider Name and Address Organization Details Recorded Time 21395 sulfadiaz ine medicatio n Not available Not available Not available 09/03/20232018 91248 RxNorm Not Available [facility] 16:22:00 Medications Name Sig Start Date Stop [...] Updated DateTime 4 153.67 cm 27.3 kg/m2 52809.1 2 g 98.6 [degF] 99 % 99 % 14 /min 88 /min 128 mm[Hg] 70 mm[Hg] VELMA JALLOH RN [facility] 11:05:28 Social History Question Answer Notes LastModified by Organizat ion Details LastModified Time Tobacco Smoking Status Former Smoker VELMA JALLOH RN [facility], [facility] 03/07/2024 09:28:40 When Did You Quit Smoking? 16+yearssinojey bunn Information not available 03/07/2024 Date Of Most [...] And Wanted Help? (For Example, If You Owego Very Nervous, Lonely, Or Blue; Got Sick [...] Safety Concerns In Your Home (see Attached [facility] Pamphlet)? No Information not available 03/07/2024 [...] Recorded Time MMR 02/12/2006 completed Not Available [facility] 04:23:35 MMR 03/10/2006 completed Not Available [facility] 04:23:36 Td (adult), 2 Lf tetanus toxoid, preservative free, adsorbed 07/20/2019 completed Not Available [facility] 09/03/2023 04:23:36 Tdap 10/22/2008 completed Not Available [facility] 04:23:38 Pneumococcal conjugate PCV 13 04/19/2015 completed Not Available [facility] 09/03/2023 04:23:39 Influenza, high-dose, trivalent, PF 07/20/2019 completed Not Available [facility] 09/03/2023 04:23:39 Td(adult) unspecified formulation 09/03/2002 completed Not Available [facility] 09/03/2023 04:23:40 Influenza, split virus, trivalent, preservative 10/04/2015 completed Not Available [facility] 09/03/2023 04:23:40 Influenza, high-dose, quadrivalent, PF 07/23/2020 completed Not Available [facility] 09/03/2023 04:23:42 pneumococcal polysaccharide PPV23 01/24/2009 completed Not Available [facility] 2022 04:23:46 pneumococcal polysaccharide PPV23 04/18/2020 completed Not Available [facility] 2022 04:23:47 influenza, unspecified formulation 07/20/2013 completed Not Available [facility] 09/03/2023 04:23:47 Past Encounters Encounter ID Performer Location Encounter Start Date Encounter Closed Date Diagnosis/Indication Diagnosis SNOMED-CT Code [id number] MARINO SCHULTZ PA-C [address] [place] [address] [place] [address] 05/11/2024 11:01:14 05/11/2024 11:38:36 Renal insufficiency 102321294 Easy bruising [id number] Pre-surger y evaluation [id number] Health Concerns Section Related Observation LastModified by Organization Detai ls LastModified Time None Recorded Concern Status LastModified by Organization Details LastModified Time None Recorded Payers Encounter Date Sequence Insurance Name Policy Number Policy Neil Covered Member ID Neil Member ID Guarantor Name 05/11/2024 2 [employer] (MEDICARE SUPPLEMENT) Rosmery Hernandez [id number] Rosmery Hernandez 05/11/2024 1 [place] Rosmery Hernandez [id number] Rosmery Hernandez Notes Date Note Type [...] is looking forward to the procedure. MARINO SCHULTZ PA-C [address], [place], [address], [facility]. 05/11/2024 11:42:34 OBGyn Episode No OBEpisode recorded.
--- OUTSIDE RECORDS SUMMARY | 2024-06-02 00:17 | XMS_ITS | Encounter Summary ---
Author Organization [facility] Address [address] [place] [address] Care Team Providers Care Scene Painter Name Role Phone NiñoChristin encarnacion DANNY Primary Care Provider [phone] Encounter Details Date Type Department Care Team (Late st Contact Info) Description 03/04/2022 Lab Requisition [facility] Pathology & Laboratory Medicine - [address] [address] Outr Resulting Lab, Provider Social History Tobacco [...] C Antibody Negative Negative 03/05/2022 11:48 EDT [facility] Blood VENOUS BLOOD / Unknown 03/03/2022 9:02 EDT 03/04/2022 16:56 EDT Provider Outr Resulting Lab CHEMISTRY & BLOOD GAS ORDERABLES [facility] [address] [place] [address] documented in this encounter Visit Diagnoses Not on filedocumented in this encounter Care Teams Scene Painter Relationship Specialty Start Date End Date Christin Niño NP PCP - General 04/08/17 documented as of this encounter
--- OUTSIDE RECORDS SUMMARY | 2024-06-02 00:17 | XMS_ITS | Encounter Summary ---
Author Organization [facility] Address [facility] [place] [id number] Care Team Providers Care Cell Technician Name Role Phone Marino Schultz Primary Care Provider [phone] Reason for Visit * Auth/Cert (Routine) Specialty Diagnoses / Procedures Referred By Contsubhash t Referred To Contact Diagnoses Cataract Procedures PRO EXTRACAPSULAR CATARACT RMVL INSERTION IO LENS PROSTH W/O ECP CATARACT EXTRACTION, EXTRACAPSULAR, W/ LENS INSERTION (WRVU 7.35) Lai Cohen MD [facility] [place] [place] [address] [facility] Referral ID Status Reason Start Date Expiration Date Visits Re quested Visits Authorized [id number] 1 1 Encounter Details Date Type Department Care Team (Late st Contact Info) Description 05/18/2024 12:21 PM EDT - 05/18/2024 1:06 PM EDT Surgery [place] [address] Lai Cohen MD [facility] [address] CATARACT EXTRACTION, EXTRACAPSULAR, W/ LENS INSERTION (WRVU 7.35) Social History Tobacco Use Types Packs/Day Years Used Date Smoking Tobacco: Former Smokeless Tobacco: Never Alcohol Use Standard Drinks/Week Comments Never 0 (1 standard drink = 0.6 oz pur e alcohol) [facility] Inpatient Questions Answer Date Recorded Does Anyone Try to Keep You From Having Contact with Others or Doing Things Outside Your Home? no 05/18/2024 Feels Threatened by Someone no 2 02/2024 Feels Unsafe at Home or Work/School no [...] surgery Lai Cohen MD Section of ophthalmology [facility] [phone] - Keep your eye patched, shielded, clean and dry overnight. The patch will be removed during your follow up visit with Dr. Cohen tomorrow. - The surgery center nurses should confirm time of your follow up appointment for tomorrow with . This appointment will be at the Eye Clinic in the main building at [facility]. - Mild discomfort is normal, but if you have any severe eye pain or bleeding call [phone] and ask to speak to the eye doctor applications engineer manufacturing. - Call your Primary Care Doctor or [...] Cohen MD - 05/18/2024 12:34 PM EDT [facility] Operative Note Patient Name: Rosmery Hernandez : [id number] MR#: [id number] Case Date: 05/18/2024 Surgeon: Surgeons and Role: * Lai Coehn MD - Primary Preoperative diagnosis: Cataract Postoperative [...] the surgery were discussed pre operatively and Patmohseniaexpressed understanding and elected surgery. Procedure: After informed [...] forceps was used to create the capsulorhexis. [place] Dissection and delineation were performed. The phacoemulsification [...] 8:45 AM EDT Office [place] [address] Lai Cohen MD [facility] [place] [address] documented as of this encounter Procedures Procedure Name Priority Date/Time Associated Diagnosis Comments Extracapsular Cataract Rmvl Insertion Io Lens Prosth W/O Ecp (54222) 05/18/2024 12:24 PM EDT Cataract CATARACT EXTRACTION, [...] Given 05/18/2024 11:21 AM EDT 1 drop fentaNYL (pf) (50 mcg/mL) multi-dose injection 25 mcg 25 mcg, Intravenous, EVERY 5 MIN PRN, Starting on Lachelle 05/18/24 at 1056, Until Lachelle 05/18/24 at 1313, Pain, Sedation, For use in the Operating Room (OR), Outpatient Surgical Center (OSC), or Special Procedure Room only under direct provider supervision and verbal order. Hold for respiratory rate less than 8 breaths per minute. (maximum dose 100 mcg), Intra-Operative (Intra-Procedure), Routine Given 05/18/2024 12:33 PM EDT 12.5 mcg Given 05/18/2024 12:26 PM EDT 12.5 mcg ketorolac tromethamine (Acular) 0.5 % ophthalmic solution [...] 11:50 AM EDT 1,000 mLs 100 mL/hr midazolam (pf) (Versed) (1 mg/mL) multi-dose injection 0.25-1 mg 0.25-1 mg, Intravenous, EVERY 5 MIN PRN, Starting on Lachelle 05/18/24 at 1056, Until Lachelle 05/18/24 at 1313, Anxiety, Sedation, For use in the Operating Room (OR), Outpatient Surgery Center (OSC) or Special Procedure room only with direct provider supervision and verbal order. Hold for delirium/agitation. (Maximum dose 4 mg.), Intra-Operative (Intra-Procedure), Routine Given 05/18/2024 12:36 PM EDT 0.5 mg Given 05/18/2024 12:26 PM EDT 0.5 mg moxifloxacin (Vigamox) 0.5 % ophthalmic solution 1 [...] MIN, 3 doses, First dose on Lachelle 7/25/24 at 1115, Last dose on Lachelle 7/25/24 at 1125, 1 drop to the operative [...] Left Eye, ONCE, 1 dose, On Lachelle 7//24 at 1115, 1 drop to the operative eye once. Start on the day of surgery., Day of Surgery (Day of Procedure), Routine 1130 (Given - Provid er: Megan Castañeda RN) moxifloxacin (Vigamox) 0.5 % ophthalmic solution 1 drop (COMPLETED) 1 drop, Left Eye, EVERY 5 MIN, 3 doses, First dose on Lachelle 7/25/24 at 1115, Last dose on Lachelle 7/25/24 at 1125, 1 drop to the operative [...] MIN, 3 doses, First dose on Lachelle 7/25/24 at 1115, Last dose on Lachelle 7/25/24 at 1125, 1 drop to the operative eye every 5 minutes times 3. Start on the day of surgery. Do NOT place dilating drops in post-op kit!, Day of Surgery (Day of Procedure), Routine 1112 (Given - Provid er: Megan Castañeda RN)1115 (Given - Provider: Megan Castañeda [...] on Lachelle 05/18/24 at 1056, Until Lachelle 05/18/24 at 1313, Pain, Sedation, For use in [...] on Lachelle 05/18/24 at 1056, Until Lachelle 05/18/24 at 1313, Anxiety, Sedation, For use in the Operating Room (OR), Outpatient Surgery Center (OSC) or Special Procedure room only with direct provider supervision and verbal order. Hold for delirium/agitation. (Maximum dose 4 mg.), Intra-Operative (Intra-Procedure), Routine 1226 (Given - Provid er: Megan Castañeda, ILIA)1236 (Given - Provider: Megan Castañeda RN) documented in this encounter Care Teams Cell Technician Relationship Specialty Start Date End Date Marino Schultz PA [address] [place] [address] PCP - General Internal Medicine 03/14/24 documented as of this encounter
--- OUTSIDE RECORDS SUMMARY | 2024-06-02 00:17 | XMS_ITS | Encounter Summary ---
Author Organization [facility] Address [facility] [place] [address] Care Team Providers Care Frozen Pie Maker Name Role Phone Ramsey Garrett DNP Primary [...] 8:45 AM EDT [place] [address] Lai Cohen MD [facility] [place] [address] documented as of this encounter Visit Diagnoses Not on filedocumented in this encounter Care Teams Frozen Pie Maker Relationship Specialty Start Date End Date Ramsey Garrett DNP [address] [place] [address] PCP - General Family Medicine 03/16/19 03/13/24 documented as of this encounter
--- OUTSIDE RECORDS SUMMARY | 2024-06-02 00:17 | XMS_ITS | Encounter Summary ---
Author Organization [facility] Address [facility] [place] [address] Care Team Providers Care Pot Lining Supervisor Name Role Phone Ramsey Garrett DNP Primary Care Provider Reason for Visit * Consultation (Routine) - Specialty Diagnoses / Procedures Referred By Tg diaz Referred To Contact Dermatology Diagnoses Other seborrheic keratosis Other specified disorders of the skin and subcutaneous tissue Ramsey Garrett DNP [address] [place] [address] [facility] Dermatology [address] [place] [address] Referral ID Status Reason Start Date Expiration Date V isits Requested Visits Authorized [id number] Consult, Test & Treat Connection [facility] PCP Updated and/or Approved 04/30/2020 06/11/2020 6 6 Encounter Details Date Type Department Care Team (Late st Contact Info) Description 06/05/2020 4:00 PM EDT Office Visit Dermatology at [facility] [address] [place] [address] Yuval Finley MD [address] [facility] [place] [address] Actinic keratoses (Primary Dx) Social [...] note were not included. Dermatology Dermatology at [facility] FOLLOW-UP - ACUTE Chief Complaint: Lesions on face History of Present Illness Rosmery Hernandez is a 70 y.o. female who presents with the following concerns: ?? Lesion on the right cheek that is scaly and does not heal. Noticed 6 months ago. No itching, burning or bleeding. Never been treated or biopsied. ?? Similar lesion on the left roman catholic that is tender. Present for 1 month. [...] the face, significant for the following: ?? Ruby, hyperkeratotic slightly irregular papules on the left roman catholic x 1, right malar cheek x 1, [...] Yuval Finley MD [facility] Section of Dermatology [facility] documented in this encounter Plan of Treatment Upcoming Encounters Date Type Department Care Team (Late st Contact Info) Description 06/13/2024 8:45 AM EDT Office [place] [address] Lai Cohen MD [facility] [place] [address] documented as of this encounter Visit Diagnoses Diagnosis Actinic keratoses- Primary Actinic keratosis documented in this encounter Care Teams Pot Lining Supervisor Relationship Specialty Start Date End Date Ramsey Garrett DNP [address] [place] [address] PCP - General Family Medicine 03/16/19 03/13/24 documented as of this encounter
--- OUTSIDE RECORDS SUMMARY | 2024-06-02 00:17 | XMS_ITS | Encounter Summary ---
Author Organization [facility] Address [facility] [place] [address] Care Team Providers Care Guide Winder Name Role Phone Ramsey Garrett DNP Primary Care Provider Reason for Visit * Reason Comments Procedure Encounter Details Date Type Department Care Team (Latest Contact Info) Description 09/07/2023 2:00 PM EST Procedure [place] [phone] Lai Cohen MD [facility] [place] [place] [address] Cataract, unspecified cataract type, unspecified laterality Social [...] 8:45 AM EDT [place] [phone] Lai Cohen MD [facility] [place] [address] documented as of this encounter Procedures Procedure Name Priority Date/Time Associated Diagnosis Comments [id number] CALC BY LASER INTERFEROMETRY - OU - BOTH EYES Routine 09/09/2023 7:32 AM EST Cataract, unspecified cataract type, unspecified laterality documented in this encounter Results * [id number] Calc By Laser Interferometry - OU - [...] of Amblyopia OS, surgery age 5 at [facility] Difference in Axial Lengths OU confirmed [...] laterality documented in this encounter Care Teams Guide Winder Relationship Specialty Start Date End Date Ramsey Garrett DNP [address] [place] [address] PCP - General Family Medicine 03/16/19 03/13/24 documented as of this encounter
--- OUTSIDE RECORDS SUMMARY | 2024-06-02 00:17 | XMS_ITS | Encounter Summary ---
Author Organization [facility] Address [facility] [place] [address] Care Team Providers Care Manager Truck Name Role Phone Marino Schultz Primary Care Provider [phone] Encounter Details Date Type Department Care Team (Latest Contact Info) Description 05/26/2024 Travel Social History Tobacco Use Types Packs/Day Years Used Date Smoking Tobacco: Former Smokeless Tobacco: Never Alcohol Use Standard Drinks/Week Comments Never 0 (1 standard drink = 0.6 oz pur e alcohol) IPV Inpatient Questions Answer Date Recorded Does Anyone [...] 8:45 AM EDT Office [place] [address] Lai Cohen MD [facility] [place] [place] [address] documented as of this encounter Visit Diagnoses Not on filedocumented in this encounter Care Teams Manager Truck Relationship Specialty Start Date End Date Marino Schultz PA [address] [place] [address] PCP - General Internal Medicine 03/14/24 documented as of this encounter
--- OUTSIDE RECORDS SUMMARY | 2024-06-02 00:17 | XMS_ITS | Encounter Summary ---
Author Organization [facility] Address [facility] [place] [address] Care Team Providers Care Soc Analyst Name Role Phone Ramsey Garrett DNP Primary [...] 8:45 AM EDT Office [place] [address] Lai Cohen MD [facility] [place] [address] documented as of this encounter Visit Diagnoses Not on filedocumented in this encounter Care Teams Soc Analyst Relationship Specialty Start Date End Date Ramsey Garrett DNP [address] [place] [address] PCP - General Family Medicine 03/16/19 03/13/24 documented as of this encounter
--- OUTSIDE RECORDS SUMMARY | 2024-06-02 00:17 | XMS_ITS | Clinical Summary ---
Author Organization [facility] Address [address] [place] [address] Care Team Providers Care Estate Planning Director Name Role Phone Christin Niño SEISMOGRAPH SHOOTER Primary Care Provider Social History Tobacco Use Types Packs/Day [...] 2010 Fall Risk Screening 2015 COVID-19 Vaccine (24 season) 2023 Hepatitis C Screen Completed 03/03/2022 [...] ORDERABLES [facility] [address] [place] [address] from Last 3 Months or Most Recently Relevant to Health Maintenance Care Teams Estate Planning Director Relationship Specialty Start Date End Date Christin Niño NP [facility] - General 04/08/17
--- OUTSIDE RECORDS SUMMARY | 2024-06-02 00:17 | XMS_ITS | Encounter Summary ---
Author Organization [facility] Address [place] [id number] Care Team Providers Care Bariatric Coordinator Name Role Phone Christin Niño ORLIN Primary Care Provider [phone] Encounter Details Date Type Department Care Team (Late st Contact Info) Description 05/25/2014 Orders Only [facility] at [place] [phone] Abner Macias MD [facility] [place] [address] Social History Tobacco Use Types Packs/Day Years [...] 8:45 AM EDT Office [place] [address] Lai Cohen MD [facility] [place] [address] documented as of this encounter Procedures Procedure [...] is a Non-reportable exam Abner Macias MD [facility] FILM LIBRARY ORD ERABLES documented in this encounter Visit Diagnoses Not on filedocumented in this encounter Care Teams Bariatric Coordinator Relationship Specialty Start Date End Date Christin Niño APRN PCP - General 05/30/14 12/20/16 documented as of this encounter
--- OUTSIDE RECORDS SUMMARY | 2024-06-02 00:17 | XMS_ITS | Referral Summary ---
Author Organization [facility] Address [address] [place] [address] Care Team Providers Care Harvest Manager Name Role Phone Christin Niño NP Primary Care Provider [phone] Social History Tobacco Use Types Packs/Day Years [...] C Antibody Negative Negative 03/05/2022 11:48 EDT [facility] Blood VENOUS BLOOD / Unknown 03/03/2022 9:02 EDT 03/04/2022 16:56 EDT Provider Outr Resulting Lab CHEMISTRY & BLOOD GAS ORDERABLES [facility] [address] [place] [address] from Last 3 Months or Most Recently Relevant to Health Maintenance Care Teams Harvest Manager Relationship Specialty Start Date End Date Christin Niño NP PCP - General 04/08/17
--- OUTSIDE RECORDS SUMMARY | 2024-06-02 00:17 | XMS_ITS | Data Portability ---
Author Organization [place] - [facility] [place] [address] Care Team Providers Care Front End Loader Driver Name Role Phone AMILCAR GONZALEZ Ultrasound Technologist [phone] Assessment Encounter Date Assessment Date Assessment LastModified [...] available Not available Lab CBC 2023 024 [facility] (Registration ), [address] [place] [address] [place], [address], 05/11/2024 17:42:24 hepatic function panel, serum 2023 024 [facility] (Registration ), [address] [place] [address] [place], [address], 05/11/2024 18:09:37 PT/PTT, plasma 2023 024 [facility] (Registration ), [address] [place] [address] [place], [address], 05/18/2024 08:16:31 Referral None recorded. Procedures None recorded. Surgeries None recorded. Imaging MAMMO, screening , bilateral - screening mammogram 2023 024 [email or web address] [facility] (Radiology), [address] [place] [address] [place], [address], 05/11/2024 15:05:35 US, renal - renal insuffici ency 2023 024 [email or web address] [facility] (Radiology), [address] [place] [address] [place], [address], 05/25/2024 09:46:46 Medication Orders None recorded. Patient TargetsNo targets recorded. Patient Instructions Encounter Date Encounter Id Patient Instructions Last Modified By Organization Details Last Modified Time 03/07/2024 [id number] Rosmery - we will schedule a mammogram in April. Rosmery - have the lab copy me on your blood work today. Avoid nsaids such as ibuprofen, advil, or aleve due to the shea's. I will see you back for your cataract preop. [email or web address] Not available 03/07/2024 09:59:41 Discussed and explained advance directives such as standard forms to the {{patient caregiv er patient and caregiver}}. Face to face discussion lasted for a duration of ___ minutes. [email or web address] Not available 03/07/2024 08:35:49 05/11/2024 [id number] Rosmery- good luck with surgery. I will [...] 10_3/ uL 4.4-10 .8 normal Not Available [address] [place], [address] 05/11/2024 17:42:24 05/11/20 24 05/11/2024 COMPL ETE BLOOD COUNT NO DIFF RBC 4.26 10_6/ uL 3.93-5 .22 normal Not Available [address] [place], [address] 05/11/2024 17:42:24 05/11/20 24 05/11/2024 COMPL ETE BLOOD COUNT NO DIFF HGB 13.2 g/dL 11.2-1 5.7 normal Not Available [address] [place], [address] 05/11/2024 17:42:24 05/11/20 24 05/11/2024 COMPL ETE BLOOD COUNT NO DIFF HCT 41.1 % 36.0-4 6.0 normal Not Available [address] [place], [address] 05/11/2024 17:42:24 05/11/20 24 05/11/2024 COMPL ETE BLOOD COUNT NO DIFF MCV 97 fL 80-95 high Not Available [address], [address] 05/11/2024 17:42:24 05/11/20 24 05/11/2024 COMPL ETE BLOOD COUNT NO DIFF MCH 31.0 pg 27.0-3 3.0 normal Not Available [address] [place], [address] 05/11/2024 17:42:24 05/11/20 24 05/11/2024 COMPL ETE BLOOD COUNT NO DIFF MCHC 32.1 % 32.0-3 6.0 normal Not Available [address] [place], [address] 05/11/2024 17:42:24 05/11/20 24 05/11/2024 COMPL ETE BLOOD COUNT NO DIFF RDW 13.5 % 11.7-1 4.6 normal Not Available [address] [place], [address] 05/11/2024 17:42:24 05/11/20 24 05/11/2024 COMPL ETE BLOOD COUNT NO DIFF platelet count 271 10_3/ uL 130-40 0 normal Not Available [address] [place], [address] 05/11/2024 17:42:24 05/11/20 24 05/11/2024 COMPL ETE BLOOD COUNT NO DIFF MPV 10.3 fL 8.0-11 .0 normal Not Available [address] [place], [address] 05/11/2024 17:42:24 05/11/20 24 05/11/2024 LIVER PANEL total protein 7.7 g/dL 6.4-8. 2 normal Not Available [address] [place], [address] 05/11/2024 18:09:37 05/11/20 24 05/11/2024 LIVER PANEL albumin 3.9 g/dL 3.4-5. 0 normal Not Available [address] [place], [address] 05/11/2024 18:09:37 05/11/20 24 05/11/2024 LIVER PANEL bilirubin, total 0.44 mg/dL 0.2-1. 0 normal Not Available [address] [place], [address] 05/11/2024 18:09:37 05/11/20 24 05/11/2024 LIVER PANEL alk phos 67 U/L 46-116 normal Not Available [facility] [address] [place], [address] 05/11/2024 18:09:37 05/11/20 24 05/11/2024 LIVER PANEL AST 18 U/L 15-37 normal Not Available [facility] [address] [place], [address] 05/11/2024 18:09:37 05/11/20 24 05/11/2024 LIVER PANEL ALT 20 U/L 14-59 normal Not Available [address], [address] 05/11/2024 18:09:37 05/11/20 24 05/11/2024 LIVER PANEL bilirubin, conjugated 0.1 mg/dL 0.0-0. 2 normal Not Available [address] [facility] [place], [address] 05/11/2024 18:09:37 05/11/20 24 05/11/2024 PROTH ROMBI N TIME prothrombin time 8.9 sec 9.1-11 .1 low Not Available [facility] (Registration ) [address] [place] [address] [place], [address], 05/11/2024 18:22:39 05/11/20 24 05/11/2024 PROTH ROMBI N TIME INR 0.9 0.9-1. 1 normal Not Available [facility] (Registration ) [address] [place] [address] [place], [address], 05/11/2024 18:22:39 05/11/20 24 05/11/2024 MAMMO , scree herbert, bilat eral Rich t Name: Jan Hernandez I Unit #: [id number] Loc: DI Orderi ng Provid er: Erwin on,Betty tobias Accoun t #: [id number] Status : REG CLI Primar [...] nor skin thicke herbert-r etract ion. IMPRES BERHTA: No radiog raphic eviden ce of malign [...] this report in error, please notify us immeddonis sabillon at and return the origin al report to us at the addres s above. Thank- you. [email or web address] [facility] (Radiology) [address], [place], [address], 05/12/2024 10:37:47 Result Notes None recorded. Problems Name Status Onset Date Resolution Date Notes Provider Name and Address Organization Details Recorded Time Fibromyalgia Active 2008 Problem Code: M79.7; Problem Code Type: ICD-10; Not Available [facility] 3 05:53:28 Senile osteoporosis Active 200805/03/2023 - Comments only - Marino Schultz RPA - unchanged on 2022 dexa. Problem Code: M81.0; Problem Code Type: ICD-10; Not Available [facility] 3 05:53:29 Hyperlipidemi a Active 200809/25/2022 - Comments only - Marino Schultz RPA - does not want to take statin. May be open to zetia but she would like lipids checked first. Fasting lipids in 3 days. She is taking cholestoff 3 tablets daily. Problem Code: E78.5; Problem Code Type: ICD-10; Not Available [facility] 3 05:53:29 Essential hypertension Active 200909/25/2022 - Comments only - Marino Schultz RPA - well controlled on lisinopril. Problem Code: I10; Problem Code Type: ICD-10; [address], [place], [address] , [facility]. 4 17:32:06 Hyperlipidemi a screening Completed 201504/23/2016 Problem Code: Z13.220; Problem Code Type: ICD-10; Not Available [facility] 3 05:53:29 Diabetes mellitus screening Completed 201504/23/2016 Problem Code: Z13.1; Problem Code Type: ICD-10; Not Available [facility] 3 05:53:29 Screening for malignant neoplasm of breast Completed 201504/23/2016 Problem Code: Z12.39; Problem Code Type: ICD-10; Not Available [facility] 3 05:53:29 Increased frequency of urination Completed 201803/08/2019 Problem Code: R35.0; Problem Code Type: ICD-10; Not Available [facility] 3 05:53:30 Mitral valve regurgitation Active 2018 on 2018 echo Problem Code: I34.0; Problem Code Type: ICD-10; [address], [place], [address] , [facility] 4 17:33:07 Shea's esophagus Active 2018 Present on [address] Gonzalez Problem Code: K22.70; Problem Code Type: ICD-10; [address], [place], [address] , [facility] 4 09:28:58 Adult health examination Active 2018 Problem Code: Z00.00; Problem Code Type: ICD-10; Not Available [facility] 3 05:53:31 Vitamin D deficiency Active 2019 Problem Code: E55.9; Problem Code Type: ICD-10; Not Available [facility] 3 05:53:31 Posttraumatic stress disorder Active 2020 Problem Code: F43.10; Problem Code Type: ICD-10; Not Available [facility] 3 05:53:31 Screening for malignant neoplasm of breast Active 202004/21/2021 - Comments only - Marino Schultz RPA - She is overdue for screening mammogram. Problem Code: Z12.39; Problem Code Type: ICD-10; Not Available [facility] 3 05:53:32 Viral screening Completed 202108/24/2023 Problem Code: Z11.59; Problem Code Type: ICD-10; Not Available [facility] 4 05:37:18 Neck pain Active 202103/30/2023 - Comments only - Marino Schultz RPA - C3-4 and C4-5 left sided stenosis on 02/2023 MRI Problem Code: M54.2; Problem Code Type: ICD-10; Not Available [facility] 3 05:53:32 Collagenous colitis Active 202109/25/2022 - Comments only - Marino Antoine RPA - recent weight loss due to exacerbation that is now under better control. Follows with Dr. Gonzalez. Treated with a 2 week course of pepto bismol. Problem Code: K52.831; Problem Code Type: ICD-10; Not Available [facility] 3 05:53:32 Candidiasis Completed 202108/24/2023 Problem Code: B37.9; Problem Code Type: ICD-10; Not Available [facility] 4 05:37:17 Abnormal weight loss Completed 201804/21/2019 Problem Code: R63.4; Problem Code Type: ICD-10; Not Available [facility] 3 05:53:38 Cellulitis Completed 201402/22/2019 Problem Code: L03.90; Problem Code Type: ICD-10; Not Available [facility] 3 05:53:38 Disorder of skin and/or subcutaneous tissue Completed 201804/21/2021 Problem Code: L98.8; Problem Code Type: ICD-10; Not Available [facility] 3 05:53:39 Hypertensive disorder Completed 200907/21/2023 Not Available [facility] 3 05:53:39 Hyperlipidemi a screening Completed 201907/18/2020 Problem Code: Z13.220; Problem Code Type: ICD-10; Not Available [facility] 3 05:53:40 Renal function tests outside reference range Completed 201607/18/2020 Problem Code: R94.4; Problem Code Type: ICD-10; Not Available [facility] 3 05:53:40 Fibromyositis Completed 200807/21/2023 Not Available [facility] 3 05:53:41 At risk - finding Completed 201904/21/2021 Problem Code: Z91.89; Problem Code Type: ICD-10; Not Available [facility] 3 05:53:41 Increased frequency of urination Completed 201804/21/2019 Problem Code: R35.0; Problem Code Type: ICD-10; Not Available [facility] 3 05:53:42 Urgent desire to urinate Completed 201804/21/2019 Problem Code: R39.15; Problem Code Type: ICD-10; Not Available [facility] 3 05:53:42 Neck pain Completed 201304/21/2019 Problem Code: M54.2; Problem Code Type: ICD-10; Not Available [facility] 3 05:53:43 Chalazion Completed 201412/03/2017 Problem Code: H00.19; Problem Code Type: ICD-10; Not Available [facility] 3 05:53:43 Chronic pain Completed 200803/14/2019 Problem Code: G89.29; Problem Code Type: ICD-10; Not Available [facility] 3 05:53:45 Diarrhea Completed 201704/21/2019 Not Available [facility] 3 05:53:46 Osteoporosis Completed 200807/21/2023 09/25/2022 - Comments only - Marino Schultz RPA - Bone density when she returns from [place] next spring. Intolerant of bisphosphonat es. Takes calcium, vitamin d, and collagen. She has a lot of macho in supplements. Not Available [facility] 3 05:53:46 Urinary tract infectious disease Completed 201804/21/2019 Problem Code: N39.0; Problem Code Type: ICD-10; Not Available [facility] 3 05:53:47 Pre-surgery evaluation Completed 201412/03/2017 Problem Code: Z01.818; Problem Code Type: ICD-10; Not Available [facility] 3 05:53:48 Backache Completed 200807/21/2023 Not Available [facility] 3 05:53:48 Hemorrhoids Completed 200807/21/2023 Not Available [facility] 3 05:53:48 Dysuria Completed 201804/21/2019 Problem Code: R30.0; Problem Code Type: ICD-10; Not Available [facility] 3 05:53:48 Depressive disorder Completed 200807/21/2023 Not Available [facility] 3 05:53:49 Adult health examination Completed 201404/21/2019 Problem Code: Z00.00; Problem Code Type: ICD-10; Not Available [facility] 3 05:53:50 Disorder of skin and/or subcutaneous tissue Completed 201602/22/2019 Problem Code: L98.9; Problem Code Type: ICD-10; Not Available [facility] 3 05:53:50 Fatigue Completed 201804/21/2019 Problem Code: R53.83; Problem Code Type: ICD-10; Not Available [facility] 3 05:53:51 Renal insufficiency Active 2023 mild, stable MARINO SCHULTZ PA-C [facility] [address], [place], [address] , [facility] 4 17:31:47 Notes:*Problem Name: Partial Blindness Os, S/p Strabismus Surg Age 5 *ICD-10 Codes: *Problem Status: active *Comments: *Note Date: 07/19/2009 Problem Notes None recorded. Procedures Surgical History None recorded. Imaging Results Imaging Date Name Status LastModified by Organiz ation Details LastModified Time 05/11/2024 MAMMO, screening, bilateral completed [email or web address] [facility] (Radiology) [address] , [place], [address], 05/12/2024 10:37:47 Procedure Notes None recorded. Medical Equipment None Reported. Allergies Allergen ID Allergen Name Allergen Category Reaction Reaction Severity Criticality Documentation Date Start Date Code Code System Note Provider Name and Address Organization Details Recorded Time 92938 sulfadiaz ine medicatio n Not available Not available Not available 09/03/20232018 44163 RxNorm Not Available [facility] 3 16:22:00 Medications Name Sig Start [...] Updated DateTime 4 153.67 cm 26.9 kg/m2 15302.9 3 g 98.8 [degF] 100 % 100 % 16 /min 90 /min 142 mm[Hg] 66 mm[Hg] VELMA JALLOH RN [place] [facility]. 4 09:33:23 Date Recorded Body height Body mass index (BMI) Body weight Body temperature Oxygen saturation Oxygen saturation in Arterial blood by Pulse oximetry Respiratory rate Heart rate Systolic blood pressure Diastolic blood pressure Provider Name and Address Organization Details Last Updated DateTime 4 153.67 cm 27.3 kg/m2 05143.1 2 g 98.6 [degF] 99 % 99 % 14 /min 88 /min 128 mm[Hg] 70 mm[Hg] VELMA JALLOH RN [facility] 11:05:28 Social History Question Answer Notes LastModified by Organizat ion Details LastModified Time Tobacco Smoking Status Former Smoker VELMA JALLOH RN null, [facility] 03/07/2024 09:28:40 When Did You [...] And Wanted Help? (For Example, If You [place] Very Nervous, Lonely, Or Blue; Got Sick [...] Recorded Time MMR 02/12/2006 completed Not Available [facility] 04:23:35 MMR 03/10/2006 completed Not Available [facility] 04:23:36 Td (adult), 2 Lf tetanus toxoid, preservative free, adsorbed 07/20/2019 completed Not Available [facility] 09/03/2023 04:23:36 Tdap 10/22/2008 completed Not Available [facility] 04:23:38 Pneumococcal conjugate PCV 13 04/19/2015 completed Not Available [facility] 09/03/2023 04:23:39 Influenza, high-dose, trivalent, PF 07/20/2019 completed Not Available [facility] 09/03/2023 04:23:39 Td(adult) unspecified formulation 09/03/2002 completed Not Available [facility] 09/03/2023 04:23:40 Influenza, split virus, trivalent, preservative 10/04/2015 completed Not Available [facility] 09/03/2023 04:23:40 Influenza, high-dose, quadrivalent, PF 07/23/2020 completed Not Available [facility] 09/03/2023 04:23:42 pneumococcal polysaccharide PPV23 01/24/2009 completed Not Available [facility] 2022 04:23:46 pneumococcal polysaccharide PPV23 04/18/2020 completed Not Available [facility] 2022 04:23:47 influenza, unspecified formulation 07/20/2013 completed Not Available [facility] 09/03/2023 04:23:47 Past Encounters Encounter ID Performer Location Encounter Start Date Encounter Closed Date Diagnosis/Indication Diagnosis SNOMED-CT Code [id number] MARINO SCHULTZ PA-C [facility] [address] [place] [address] 03/07/2024 09:15:35 03/07/2024 10:02:25 Adult health examination 854993311 Screening mammography 24 673872 [id number] MARINO SCHULTZ PA-C [facility] [address] [place] [address] 05/11/2024 11:01:14 05/11/2024 11:38:36 Renal insufficiency 168803886 Easy bruising 306531413 Pre-surger y evaluation 671712386 Health Concerns Section Related Observation LastModified by Organization Detai ls LastModified Time None Recorded Concern Status LastModified by Organization Details LastModified Time None Recorded Advance Directives Directive None Recorded Payers Encounter Date Sequence Insurance Name Policy Number Policy Neil Covered Member ID Neil Member ID Guarantor Name 03/07/2024 2 [employer] (MEDICARE SUPPLEMENT) Rosmery Hernandez [id number] Rosmery Hernandez 03/07/2024 1 [place] [employer] [place] Rosmery I Hernandez [id number] Rosmery Hernandez 05/11/2024 2 [employer] (MEDICARE SUPPLEMENT) Rosmery Hernandez [id number] Rosmery Hernandez 05/11/2024 1 [place] Rosmery I Hernandez [id number] Rosmery Hernandez Notes Date Note Type [...] is doing okay. She had to leave [place] early due to sons recent illness. He was hospitalized with encephalitis. She had a good winter. No significant illnesses. No injuries. [address], [place], [address], [facility]. 03/07/2024 15:54:17 05/11/2024 text/html HPI Notes: Faith alberto is here for preop cataract surgery. She thinks they are doing one eye, and then the other a couple weeks later. She is feeling well. No recent illnesses. No fevers or chills. Her vision is affected by the cataracts. She is looking forward to the procedure. [address], [place], [address], [facility]. 05/11/2024 11:42:34 OBGyn Episode No OBEpisode recorded.
--- OUTSIDE RECORDS SUMMARY | 2024-06-02 00:17 | XMS_ITS | Encounter Summary ---
Author Organization [facility] Address [facility] [place] [address] Care Team Providers Care Strip Mine Supervisor Name Role Phone Ramsey Garrett DNP Primary Care Provider Reason for Visit * Reason Comments Follow-up * Consultation (Routine) - Specialty Diagnoses / Procedures Referred By Tg diaz Referred To Contact Dermatology Diagnoses Other seborrheic keratosis Other specified disorders of the skin and subcutaneous tissue seborrheic keratotis multiple skin lesions Ramsey Garrett, ZEYAD [address] [place] [address] [facility] [address] [place] [address] Referral ID Status Reason Start Date Expiration Date V isits Requested Visits Authorized [id number] Consult, [facility] 03/16/2019 03/15/2020 6 6 Encounter Details Date Type Department Care Team (Late st Contact Info) Description 05/09/2019 1:45 PM EDT Office Visit Dermatology at [facility] [address] [place] [address] Yuval Finley MD [address] [facility] [place] [address] Actinic keratoses; Seborrheic keratoses, inflamed; [...] the original note were not included. DERMATOLOGY [place], [place] CONSULT Reason for Consultation: Multiple skin lesions Date of Consultation: 05/09/19 Consult Requested by: Ramsey Garrett, [employer] [address] [place] [address] Chief Complaint: Lesions History of Present Illness Rosmery Hernandez is a 69 y.o. female who presents with the following concerns: ?? Scaly, itchy lesions on the face. Never been treated or biopsied, but patient is concerned that they are actinic keratoses. ?? Brown, itchy lesion on the left religion. Never been treated or biopsied. ?? Tender [...] upper chest significant for the following: ?? Kraemer, hyperkeratotic, pigmented slightly irregular papules on the midline upper forehead x 1, dorsum nose x 1, left malar cheek x 1 [Total AK:3] ?? 11 x 14 mm, dark brown, stuck on, warty plaque on the left religion. Dark brown, stuck on, 2-3 mm,warty papule [...] re-evaluation and management. Inflamed Seborrheic Keratoses, Left religion and left upper chest Benign. Symptomatic. Counseled: ISAlberto and Enoch, benign, treatment options for symptomatic lesions. Answered all questions.Handout given. ?? Total 1 (Left religion) treated with cryotherapy, 2 cycles at 5 [...] Yuval Finley MD [facility] Section of Dermatology [facility] documented in this encounter Plan of Treatment Upcoming Encounters Date Type Department Care Team (Late st Contact Info) Description 06/13/2024 8:45 AM EDT Office Visit [place] [address] Lai Cohen MD [facility] [place] [address] documented as of this encounter Visit Diagnoses Diagnosis Actinic keratoses Actinic keratosis Seborrheic keratoses, inflamed Seborrheic keratoses documented in this encounter Care Teams Strip Mine Supervisor Relationship Specialty Start Date End Date Ramsey Garrett DNP [address] [place] [address] PCP - General Family Medicine 03/16/19 03/13/24 documented as of this encounter
--- OUTSIDE RECORDS SUMMARY | 2024-06-02 00:17 | XMS_ITS | Encounter Summary ---
Author Organization [facility] Address [facility] [place] [address] Care Team Providers Care In Flight Refueling Operator Name Role Phone Marino Schultz Primary Care Provider [phone] Encounter Details Date Type Department Care Team (Latest Contact Info) Description 05/19/2024 Travel Social History Tobacco Use Types Packs/Day [...] 8:45 AM EDT Office [place] [address] Lai Cohen MD [facility] [place] [address] documented as of this encounter Visit Diagnoses Not on filedocumented in this encounter Care Teams In Flight Refueling Operator Relationship Specialty Start Date End Date Marino Schultz PA [address] [place] [address] PCP - General Internal Medicine 03/14/24 documented as of this encounter
== END 2024-06-02 00:35 ==
LOC: DI 00:15
PROVIDERS: Visit Provider Physician Assistant
DX: N28.9 Disorder of kidney and ureter, unspecified (principal)
CPT/HCPCS: 76770

== ENCOUNTER 2025-02-14 00:28 | Inpatient (IN) | payer MEDICARE, SELFPAY ==
[2025-02-14] VITALS (34 sets, daily range): BP systolic 135–165; BP diastolic 51–82; PULSE 57–71; RESP 15–26; TEMP 36.6–36.8; O2SAT 95–100
--- NOTE | 2025-02-14 00:15 | RT.EKG_ITS ---
APPROVED REPORT Exam: Resting ECG Reason for Exam: chest pain Patient Location: E HR:71 bpm ECG Measurements Heart Rate 71 AXIS CA 154 P 74 QRSd 83 QRS 34 QT 395 T 59 QTc 430 Conclusion Sinus rhythm...normal P axis, V-rate 60- 99
--- NOTE | 2025-02-14 00:45 | DI.RAD_ITS ---
Exam(s) XR PORTABLE CHEST AP EXAM: XR PORTABLE CHEST AP CLINICAL HISTORY: Chest pain TECHNIQUE: 2D digital imaging was performed of the chest. One image was obtained. An AP view was ob tained. COMPARISON: CR XR CHEST 2V PA LATERAL from 02/22/2019 FINDINGS: MEDIASTINUM: Normal. HEART: Normal. PULMONARY VASCULATURE: Normal. LUNGS: Clear. PLEURAL SPACE: No pleural effusion or pneumothorax. BONE:Within normal limits for the patient's age. OTHER FINDINGS:Normal. IMPRESSION: 1. No acute pulmonary findings. 2. The preliminary [facility] report was reviewed. DATA REPOSITORY: RADIATION DOSE DELIVERED:
[2025-02-14] MEDS: Pantoprazole 40 MG VIAL IVP (01:04)
[2025-02-14] MEDS: ACETAMINOPHEN 1,000 MG/100 ML BAG 400 MG IVPB (01:04)
[2025-02-14 01:06] LABS: Abs Immature Grans 0.05 10^3/uL (0.0-0.06); Absolute Basophil Count 0.07 10^3/uL (0.0-0.2); Absolute Eosinophil Count 0.25 10^3/uL (0.0-0.7); Absolute Lymphocyte Count 2.31 10^3/uL (1.2-3.4); Absolute Monocyte Count 0.71 10^3/uL (0.1-0.8); Absolute Neutrophil Count 9.08 10^3/uL (1.2-6.7); Basophils % 0.6 %; HCT 44.8 % (36.0-46.0); HGB 14.7 g/dL (11.2-15.7); Immature Grans % 0.4 %; Lymphocytes % 18.5 %; MCH 30.8 pg (27.0-33.0); MCHC 32.8 % (32.0-36.0); MCV 94 fL (80-95); MPV 9.9 fL (8.0-11.0); Monocytes % 5.7 %; Neutrophils % 72.8 %; Platelet Count 248 10^3/uL (130-400); RBC 4.77 10^6/uL (3.93-5.22); RDW 13.4 % (11.7-14.6); RDW-SD 46.2 fL; WBC 12.47 10^3/uL (4.4-10.8)
[2025-02-14 01:25] LABS: ALT 21 U/L (14-59); AST 19 U/L (15-37); Albumin 4.1 g/dL (3.4-5.0); Alkaline Phosphatase 80 U/L (46-116); Anion Gap 7.1 mmol/L (3-11); BUN 31 mg/dL (7-18); Bilirubin, Total 0.5 mg/dL (0.2-1.0); CO2 27.9 mmol/L (21.0-32.0); CREATININE 1.5 mg/dL (0.55-1.02); Calcium 10.2 mg/dL (8.5-10.1); Chloride 104 mmol/L (98-107); Estimated GFR 36.34 (mL/min/1.73m2); Glucose 126 mg/dL (74-106); Potassium 3.8 mmol/L (3.5-5.1); Sodium 139 mmol/L (136-145); Total Protein 8.2 g/dL (6.4-8.2)
[2025-02-14 01:28] LABS: Troponin I 94 ng/L (<or=51)
[2025-02-14 01:35] LABS: Lipase 40 U/L (<78)
--- NOTE | 2025-02-14 01:36 | DI.[facility]_ITS ---
PROCEDURE INFORMATION: Exam: XR Chest Exam date and time: 02/14/2025 1:08 AM Age: 74 years old Clinical indication: Other: Chest pain TECHNIQUE: Imaging protocol: Radiologic exam of the chest. Views: 1 view. COMPARISON: CT CHEST/ABD/PEL W 09/28/2020 8:31 PM FINDINGS: Lungs: Unremarkable. No consolidation. Pleural spaces: Unremarkable. No pleural effusion. No pneumothorax. Heart/Mediastinum: Unremarkable. No cardiomegaly. Bones/joints: Unremarkable. IMPRESSION: No acute findings. Dictated and Authenticated by: Storm Marshall MD. Orderin Toney Barakat MD
[2025-02-14 02:07] LABS: Troponin I 84 ng/L (<or=51)
[2025-02-14] MEDS: Aspirin 81 MG CHEW 324 MG CH (02:08)
[2025-02-14 02:17] LABS: PTT Activated 23.4 sec (20.6-30.2)
[2025-02-14] MEDS: Heparin in 0.45% NaCl 25,000 UNIT/250 ML BAG 10 UNIT IVINF (02:20)
--- NOTE | 2025-02-14 02:31 | ED.GENADUL_ITS ---
Discharge Plan Disposition Patient Disposition: Admit to [facility] Condition: Stable Discharge Details Chief Complaint: Chest Pain Clinical Impression: ACS (acute coronary syndrome) Primary Care Provider: Marino Schultz ED Provider: Yuval Ziegler Home Meds and New Rx's Prescriptions: No Action esomeprazole magnesium [Nexium] 20 mg capsule,delayed release(DR/EC) 20 mg PO DAILY lisinopril 5 MG tablet 10 mg PO DAILY omega-3 fatty acids-fish oil 1 EACH capsule 1 ea PO DAILY cholecalciferol (vitamin D3) [Vitamin D3] 2,000 UNIT capsule 2,000 units PO DAILY diphenhydramine HCl 25 MG capsule 50 mg PO Q6H PRNQty: 20 0RF grape seed extract 25 mg Capsule 150 mg PO DAILY calcium carbonate [Calcium 500] 500 mg calcium (1,250 mg) Tablet 1,000 mg PO DAILY aspirin 81 mg Tablet 81 mg PO DAILY red yeast rice 600 mg Capsule 600 mg PO DAILY cranberry fruit 400 mg Capsule 400 mg PO DAILY pantoprazole 20 mg tablet,delayed release (DR/EC) 20 mg PO DAILY Patient Comments: TAKE ONE TABLET BY MOUTH EVERY DAY lisinopril 20 mg tablet 20 mg PO DAILY Patient Comments: TAKE ONE TABLET BY MOUTH EVERY DAY HPI General Date/Time Provider Initiated Documentation: 02/14/25 00:30 . HPI Narrative: The patient is a 74-year-old female with a past medical history significant for gastroesophageal reflux disease and hypertension, who presents the emergency department this evening complaining of ongoing epigastric pain radiating into her chest with a sensation of acid reflux it has been ongoing since about 3 PM this afternoon. The patient states that she has not eaten any food since the onset of symptoms because she did not feel like she could take it. The patient reports that she took a Tums tablet without any relief of her symptoms at home. The patient denies any shortness of breath, palpitations, or dyspnea on exertion. The patient does report that she had some sweating at the onset of the symptoms. She reports that the pain/symptoms improved in the last several hours but she was concerned that they were out of character for her typical gastroesophageal reflux disease. Related Data Home Medications ?Medication ?Instructions ?Recorded ?Confirmed lisinopril 5 mg tablet 10 mg PO DAILY 08/24/14 02/14/25 omega-3 fatty acids-fish oil 300 1 ea PO DAILY 08/24/14 02/14/25 mg-1,000 mg capsule cholecalciferol (vitamin D3) 50 2,000 units PO DAILY 10/29/14 02/14/25 mcg (2,000 unit) capsule (Vitamin D3) diphenhydramine HCl 25 mg capsule 50 mg (2 x 25 mg) PO Q6H PRN #20 09/25/17 02/14/25 nathalie esomeprazole magnesium 20 mg 20 mg PO DAILY 06/06/19 02/14/25 capsule,delayed release (Nexium) aspirin 81 mg tablet 81 mg PO DAILY 09/28/20 02/14/25 calcium carbonate (Calcium 500) 1,000 mg PO DAILY 09/28/20 02/14/25 cranberry fruit 400 mg capsule 400 mg PO DAILY 09/28/20 02/14/25 grape seed extract 25 mg capsule 150 mg PO DAILY 09/28/20 02/14/25 red yeast rice 600 mg capsule 600 mg PO DAILY 09/28/20 02/14/25 lisinopril 20 mg tablet 20 mg PO DAILY 02/14/25 02/14/25 pantoprazole 20 mg tablet,delayed 20 mg PO DAILY 02/14/25 02/14/25 release Previous Rx's ?Medication ?Instructions ?Recorded diphenhydramine HCl 25 mg capsule 50 mg (2 x 25 mg) PO Q6H PRN #20 09/25/17 nathalie Allergies Allergy/AdvReac Type Severity Reaction Status Date / Time Sulfa (Sulfonamide Allergy Intermediate Other (See Unverified 02/14/25 00:36 Antibiotics) Comment) alendronate sodium (From Allergy Unknown Unverified 02/14/25 00:36 Fosamax) General Stated Complaint: Chest Pain GABY: 3 Exam Const General: cooperative, healthy appearing and no acute distress Resp Effort & Inspection: normal respiratory effort Auscultation: clear to auscultation bilaterally Cardio Rate: regular rate Rhythm: regular rhythm Heart Sounds: S1 normal and S2 normal GI Inspection: normal to inspection Palpation: soft Auscultation: normal bowel sounds Skin General skin exam: no rashes or lesions noted Neuro General: patient alert, patient awake, patient oriented x3, moves all extremities, normal light touch, pain and propioception, no focal motor deficits and CN's II-XI intact bilaterally Course Vital Signs Vital signs: Vital Signs Pulse 68 02/14/25 00:32 Respiratory Rate 18 02/14/25 00:32 Blood Pressure 165/82 H 02/14/25 00:32 Pulse Oximetry 99 02/14/25 00:32 Pulse 68 02/14/25 00:32 Respiratory Rate 18 02/14/25 00:37 Respiratory Effort Normal 02/14/25 00:37 Respiratory Depth Normal 02/14/25 00:37 Respiratory Pattern Normal 02/14/25 00:37 Blood Pressure 165/82 H 02/14/25 00:32 Pulse Oximetry 99 02/14/25 00:32 Oxygen Delivery Method Room Air 02/14/25 00:32 Oxygen Flow Rate 0 02/14/25 00:32 Lab/Test Results Lab/Test Results: Laboratory Tests Range/Units 02/14/25 02/14/25 00:45 01:40 WBC (4.4-10.8) 10^3/uL 12.47 H RBC (3.93-5.22) 10^6/uL 4.77 Hgb (11.2-15.7) g/dL 14.7 Hct (36.0-46.0) % 44.8 MCV (80-95) fL 94 MCH (27.0-33.0) pg 30.8 MCHC (32.0-36.0) % 32.8 RDW (11.7-14.6) % 13.4 Plt Count (130-400) 10^3/uL 248 MPV (8.0-11.0) fL 9.9 Immature Gran % % 0.4 Neutrophils % % 72.8 Lymphocytes % % 18.5 Monocytes % % 5.7 Eosinophils % % 2.0 Basophils % % 0.6 Nucleated RBC % (0.0-0.3) % 0.0 Absolute Neutrophils (1.2-6.7) 10^3/uL 9.08 H Absolute Lymphocytes (1.2-3.4) 10^3/uL 2.31 Absolute Monocytes (0.1-0.8) 10^3/uL 0.71 Absolute Eosinophils (0.0-0.7) 10^3/uL 0.25 Absolute Basophils (0.0-0.2) 10^3/uL 0.07 APTT (20.6-30.2) sec 23.4 Sodium (136-145) mmol/L 139 Potassium (3.5-5.1) mmol/L 3.8 Chloride (98-107) mmol/L 104 Carbon Dioxide (21.0-32.0) mmol/L 27.9 Anion Gap (3-11) mmol/L 7.1 BUN (7-18) mg/dL 31 H Creatinine (0.55-1.02) mg/dL 1.5 H Est GFR (CKD-EPI 2020) (mL/min/1.73m2) 36.34 Glucose (74-106) mg/dL 126 H Calcium (8.5-10.1) mg/dL 10.2 H Total Bilirubin (0.2-1.0) mg/dL 0.5 AST (15-37) U/L 19 ALT (14-59) U/L 21 Alkaline Phosphatase (46-116) U/L 80 Troponin I (<or=51) ng/L 94 H* 84 H* Total Protein (6.4-8.2) g/dL 8.2 Albumin (3.4-5.0) g/dL 4.1 Lipase (<78) U/L 40 Medical Decision Making The patient was seen and examined. She appears in no distress and has normal vital signs here in the emergency room. Her EKG represents normal sinus rhythm with a ventricular response rate of 71 bpm. There is not appear to be any changes in repolarization that the consistent with pattern injury ischemia. The patient had been given some IV acetaminophen and a GI cocktail here which seemed to significantly improve her symptoms. Her initial troponin was 95, and her 1 hour troponin was 84 with a downward trend. The patient has no active symptoms at this time. I discussed the case with our hospitalist who asked that I contact [facility] to see if the patient could be accepted as transfer for heart catheterization. The patient was placed on a heparin drip and given oral aspirin here in the emergency room. The patient continues to be stable at this time. [id number] - I discussed the case with the [facility] transfer center and the institutional nutrition consultant at this time. The patient was accepted in transfer to [facility] by Dr. Day for ongoing management and workup to include echocardiogram and likely cardiac catheterization. [id number] - Case discuss with Dr. Razo for admission for transfer later today. Quality:SDOH Health Related Social Needs: No Data to Display PFSH All Active Problems (Updated 02/14/25 @ 03:28 by Yuval Ziegler MD) ACS (acute coronary syndrome) (Acute) Urge incontinence (Acute) Medical History (Updated 02/14/25 @ 03:28 by Yuval Ziegler MD) Hypertension Surgical History (Updated 08/10/18 @ 14:33 by [place]) Trigger Finger release BILAT THUMBS, RMF, RRF, RLF Tonsillectomy section X2 Abdominal hysterectomy Appendectomy Social History Smoking/Tobacco Use Status: Former Tobacco Use Smoking risk assessment performed?: Yes Alcohol Intake: current Alcohol Intake frequency: holidays/special occasions only Drug use: Never Do you feel safe at home: Yes Do you feel safe in your relationship?: Yes
[2025-02-14] MEDS: Clopidogrel 300 MG TAB PO (03:36)
[2025-02-14 04:34] LABS: Troponin I 81 ng/L (<or=51)
--- NOTE | 2025-02-14 04:48 | HPE_ITS ---
Date of service: 02/14/25 Time of Service: 06:43 Assessment and Plan Assessment and plan (1) ACS (acute coronary syndrome): Status: Acute Assessment and plan: The patient is a 74-year-old woman with no known cardiac history who presents with a non-STEMI. Her troponins have peaked. We will continue heparin drip, aspirin, Plavix. Will obtain a TSH, A1c and lipids for risk stratification. Patient is excepted to [facility] for likely left heart cath (Dr. Day is the accepting attending). Otherwise we will provide supporting care and monitor patient on telemetry. She is currently free of chest pain and not requiring sublingual nitroglycerin or Nitropaste. Troponin peaked at 95 but that was the initial reading so may have been higher prior to coming to the hospital. She has no EKG changes at the moment. Continue lisinopril, protonix. Code: FULL DVT ppx: heparin drip History of Present Illness Narrative: Patient is a 74-year-old woman with a past medical history significant for GERD and hypertension. She has no known cardiac issues. She is a former pack per day smoker but quit 30 years ago. She presented with acute onset substernal/epigastric pain rating into her chest with some pressure and acid reflux. She has been diaphoretic and may be slightly nauseous. She is otherwise not been sick recently and has felt well. She denies recent illnesses, fevers, chills, dizziness, lightheadedness, blurry vision, pulmonary complaints, PND, orthopnea, lower extremity swelling, abdominal pain, dysuria, rashes. Her twin brother has heart disease. Patient with no EKG changes the positive troponin with substernal chest pain and additional symptoms. Admitted for NSTEMI and accepted in transfer to [facility]. Review of Systems All systems reviewed & are unremarkable except as noted in HPI and below PFSH All Active Problems (Updated 02/14/25 @ 03:28 by Yuval Ziegler MD) ACS (acute coronary syndrome) (Acute) Urge incontinence (Acute) Medical History (Updated 02/14/25 @ 03:28 by Yuval Ziegler MD) Hypertension Surgical History (Updated 02/14/25 @ 06:36 by Gio Razo MD) History of cholecystectomy Trigger Finger release BILAT THUMBS, RMF, RRF, RLF Tonsillectomy section X2 Abdominal hysterectomy Appendectomy Family History (Updated 02/14/25 @ 06:36 by Gio Razo MD) Other Heart disease Social History Smoking/Tobacco Use Status: Former Tobacco Use Smoking risk assessment performed?: Yes Alcohol Intake: current Alcohol Intake frequency: holidays/special occasions only Drug use: Never Housing: house Do you feel safe at home: Yes Do you feel safe in your relationship?: Yes Meds Allergies and Home Medications Allergies Allergy/AdvReac Type Severity Reaction Status Date / Time Sulfa (Sulfonamide Allergy Intermediate Other (See Unverified 02/14/25 00:36 Antibiotics) Comment) alendronate sodium (From Allergy Unknown Unverified 02/14/25 00:36 Fosamax) Home Medications ?Medication ?Instructions ?Recorded ?Confirmed ?Type lisinopril 5 mg tablet 10 mg PO DAILY 08/24/14 02/14/25 History omega-3 fatty acids-fish oil 300 1 ea PO DAILY 08/24/14 02/14/25 History mg-1,000 mg capsule cholecalciferol (vitamin D3) 50 2,000 units PO DAILY 10/29/14 02/14/25 History mcg (2,000 unit) capsule (Vitamin D3) diphenhydramine HCl 25 mg capsule 50 mg (2 x 25 mg) PO Q6H PRN #20 09/25/17 02/14/25 Rx caps esomeprazole magnesium 20 mg 20 mg PO DAILY 06/06/19 02/14/25 History capsule,delayed release (Nexium) aspirin 81 mg tablet 81 mg PO DAILY 09/28/20 02/14/25 History calcium carbonate (Calcium 500) 1,000 mg PO DAILY 09/28/20 02/14/25 History cranberry fruit 400 mg capsule 400 mg PO DAILY 09/28/20 02/14/25 History grape seed extract 25 mg capsule 150 mg PO DAILY 09/28/20 02/14/25 History red yeast rice 600 mg capsule 600 mg PO DAILY 09/28/20 02/14/25 History lisinopril 20 mg tablet 20 mg PO DAILY 02/14/25 02/14/25 History pantoprazole 20 mg tablet,delayed 20 mg PO DAILY 02/14/25 02/14/25 History release Exam Const General: cooperative, comfortable and no acute distress Orientation: alert and oriented x3 Resp Effort & Inspection: normal respiratory effort Auscultation: clear to auscultation bilaterally Cardio Rate: regular rate Rhythm: regular rhythm Heart Sounds: S1 normal, S2 normal and no murmurs GI Inspection: non-distended Palpation: nontender Neuro General: patient alert and patient oriented x3 Cranial Nerves: CN's II-XI intact bilaterally Extrem Right lower extremity: no edema Left lower extremity: no edema Results Imaging Chest x-ray: report reviewed (no acute pathology) Labs 02/14/25 00:45 02/14/25 00:45 Labs: Laboratory Results - last 24 hr 02/14/25 02/14/25 02/14/25 00:45 01:40 03:55 WBC 12.47 H RBC 4.77 Hgb 14.7 Hct 44.8 MCV 94 MCH 30.8 MCHC 32.8 RDW 13.4 Plt Count 248 MPV 9.9 Immature Gran % 0.4 Neutrophils % 72.8 Lymphocytes % 18.5 Monocytes % 5.7 Eosinophils % 2.0 Basophils % 0.6 Nucleated RBC % 0.0 Absolute Neutrophils 9.08 H Absolute Lymphocytes 2.31 Absolute Monocytes 0.71 Absolute Eosinophils 0.25 Absolute Basophils 0.07 APTT 23.4 Sodium 139 Potassium 3.8 Chloride 104 Carbon Dioxide 27.9 Anion Gap 7.1 BUN 31 H Creatinine 1.5 H Est GFR (CKD-EPI 2020) 36.34 Glucose 126 H Calcium 10.2 H Total Bilirubin 0.5 AST 19 ALT 21 Alkaline Phosphatase 80 Troponin I 94 H* 84 H* 81 H* Total Protein 8.2 Albumin 4.1 Lipase 40 Last Vital Signs Pulse 60 02/14/25 04:30 Resp 21 02/14/25 04:30 BP 150/56 H 02/14/25 04:01 Pulse Ox 97 02/14/25 04:30 Time Spent Time spent with Patient: <40 minutes Time was spent: preparing to see the patient(eg.review tests), obtaining and/or reviewing separately otained hiistory, ordering medications,tests, procedures, referring, communicating with other health child care provider, indepentently interpreting results and counseling the patient
[2025-02-14 05:27] LABS: Calculated LDL 156 mg/dL (<100); Cholesterol 229 mg/dL (<200); HDL Cholesterol 59 mg/dL (>or=50); Triglyceride 71 mg/dL (<150)
[2025-02-14 07:37] LABS: HCT 39.5 % (36.0-46.0); HGB 12.9 g/dL (11.2-15.7); MCH 30.9 pg (27.0-33.0); MCHC 32.7 % (32.0-36.0); MCV 95 fL (80-95); Platelet Count 217 10^3/uL (130-400); RBC 4.18 10^6/uL (3.93-5.22); RDW 13.4 % (11.7-14.6); RDW-SD 46.8 fL; WBC 10.31 10^3/uL (4.4-10.8)
[2025-02-14 07:52] LABS: Anion Gap 9.5 mmol/L (3-11); BUN 30 mg/dL (7-18); CO2 27.5 mmol/L (21.0-32.0); CREATININE 1.5 mg/dL (0.55-1.02); Calcium 9.5 mg/dL (8.5-10.1); Chloride 103 mmol/L (98-107); Estimated GFR 36.34 (mL/min/1.73m2); Glucose 107 mg/dL (74-106); Magnesium 2.2 mg/dL (1.8-2.4); Potassium 4.4 mmol/L (3.5-5.1); Sodium 140 mmol/L (136-145)
[2025-02-14] MEDS: Pantoprazole 40 MG TABCR PO (08:00)
[2025-02-14] MEDS: Clopidogrel 75 MG TAB PO (08:00)
[2025-02-14] MEDS: Aspirin 81 MG CHEW PO (08:00)
[2025-02-14] MEDS: Lisinopril 20 MG TAB PO (08:00)
[2025-02-14 08:04] LABS: TSH (W/Ref FT4) 2.55 uIU/mL (0.36-3.74)
--- NOTE | 2025-02-14 08:44 | NUR.NOTE ---
Nursing Note: RN spoke w/ Lab regarding uncollected PTT STAT lab that was due at 0820, Lab states they will come up and draw it. CHIRAG MORILLO
--- NOTE | 2025-02-14 09:14 | INITIAL_ITS ---
Date of service: 02/14/25 Time of Service: 09:14 Care Management Initial Assmt Initial Assessment Reason for Hospitalization: N-STEMI Functional Status/Living Situation Patient Presentation: Rosmery presented to the ED early this morning with acute onset of substernal/epigastric pain radiating into her chest with some pressure and acid reflux. She had been diaphoretic and slightly nauseous. She was found to have a myocardial infarct and is accepted to [facility] for presumed cardiac cath. Betty was sitting up in the bed, visiting with her , Efrain, when CM met with her today. She was very pleasant. She looked well, and stated that she felt well. Betty is in shock that she had an MS. I really thought it was heart burn. She stated that she got the riot act from a provider stating that she should be taking better care of herself. Betty is patiently waiting for a bed at [facility]. She would like to eat something. Town of Residence: [facility] Resides with: Spouse (Vickey) Significant Other/Family: Local (6 kids between Betty and Efrain. Some are local. Grandchildren and great grandchildren, as well.) Natural Supports: family Employment Status: Retired Instrumental Activities of Daily Living (ADLs): Independent Activities/Hobbies/SocialSupport: Betty stated that she keeps very busy keeping house. She enjoys it, and the house is big. The house was built by Efrain and they take great pride in it. Medications Medication Management: No Issues/Barriers identified Advance Directives Advance Directives: Do you have an Advance Directive: N 05/23/14 11:00 AD On File at [facility]: N 04/05/13 11:40 Date Asked 02/14/25 02/14/25 05:25 AD Date Reviewed COLST On File at [facility] COLST Date Scanned Code Status Resuscitation Status Full Code Insurance Coverage/Financial Issues Insurance: [employer] Medicare Replacement Care Team Visit Care Team Role Provider Type Ni Cuello APRN MD [facility] STAFF PHYSICIAN Marino Schultz Primary Care Provider NON-[facility] STAFF PHYSICIAN Yuval Ziegler MD Emergency Provider [facility] STAFF PHYSICIAN Gio Razo MD Admit Provider [facility] STAFF PHYSICIAN Attending Provider Discharge Potential Discharge Needs: Other (transfer to [facility]) Anticipated Barriers to Discharge: Bed availability Patient/Family Education Needs: Review discharge instructions, discuss Ask Me T hree Transportation: EMS Plan: Rosmery will be transferred to [facility] when a bed becomes available. She will transport via EMS as coordinated by the RN roll forming supervisor. Social Determinants of Health Screening Will the Patient Participate in the Screening?: Declined to provide Do you worry about having a steady place to live?: choose not to answer PFSH All Active Problems (Updated 02/14/25 @ 03:28 by Yuval Ziegler MD) ACS (acute coronary syndrome) (Acute) Urge incontinence (Acute) Medical History (Updated 02/14/25 @ 03:28 by Yuval Ziegler MD) Hypertension Surgical History (Updated 02/14/25 @ 06:36 by Gio Razo MD) History of cholecystectomy Trigger Finger release BILAT THUMBS, RMF, RRF, RLF Tonsillectomy section X2 Abdominal hysterectomy Appendectomy Family History (Updated 02/14/25 @ 06:37 by Gio Razo MD) Other Heart disease Social History Smoking/Tobacco Use Status: Former Tobacco Use Smoking risk assessment performed?: Yes Alcohol Intake: current Alcohol Intake frequency: holidays/special occasions only Drug use: Never Housing: house Do you feel safe at home: Yes Do you feel safe in your relationship?: Yes Readmission Within the Past 30 Days Yes or No: No
[2025-02-14] MEDS: Atorvastatin 40 MG TAB PO (09:33)
[2025-02-14 09:54] LABS: PTT Activated 120.3 sec (20.6-30.2)
[2025-02-14 10:26] LABS: Troponin I 83 ng/L (<or=51)
--- NOTE | 2025-02-14 13:38 | PHA.REVIEW2 ---
Pharmacy Admission Review Admission Clinical Review Admission Pharmacy Review: ACS (acute coronary syndrome) (Acute) Sulfa (Sulfonamide Antibiotics) Allergy (Intermediate, Unverified 02/14/25 00:36) Other (See Comment) alendronate sodium (From Fosamax) Allergy (Unverified 02/14/25 00:36) Unknown Resuscitation Status Full Code Height 5 ft 1 in Weight 63.503 kg Comments Comments/Follow Ups: waiting on bed at [facility] Pharmacy Admission Review Renal Dosing Renal Dosing: BUN 30 mg/dL (7-18) H 02/14/25 07:22 Creatinine 1.5 mg/dL (0.55-1.02) H 02/14/25 07:22 Medications needing adjustments: Reviewed (CrCl 28.09 mL/min) List of meds needing interventions: Current medications are okay Anticoagulation Anticoagulation: Hgb 12.9 g/dL (11.2-15.7) 02/14/25 07:22 Hct 39.5 % (36.0-46.0) 02/14/25 07:22 Plt Count 217 10^3/uL (130-400) 02/14/25 07:22 Creatinine 1.5 mg/dL (0.55-1.02) H 02/14/25 07:22 Therapeutic Anticoagulation: Reviewed (aPTT 120.3 @ 0835) Medications: Heparin (paused at 0956, resumed a 1058: 800units/hr) Relevant Labs Relevant Labs: Sodium 140 mmol/L (136-145) 02/14/25 07:22 Potassium 4.4 mmol/L (3.5-5.1) 02/14/25 07:22 Chloride 103 mmol/L (98-107) 02/14/25 07:22 Magnesium 2.2 mg/dL (1.8-2.4) 02/14/25 07:22 Electrolytes, C-Reactive P, ESR: Reviewed DM Control DM Control: Glucose 107 mg/dL (74-106) H 02/14/25 07:22 Hemoglobin A1c 6.0 % (<5.7) H 02/14/25 03:55 DM Control: Reviewed (no diagnosis of diabetes in patients chart) Insulin Dosing, Diabetic Medication: No medications for diabetes at this time Cardiac Review Cardiac Review: Troponin I 83 ng/L (<or=51) H* 02/14/25 09:50 Blood Pressure 146/56 1114 Blood Pressure 135/51 0751 Blood Pressure 136/71 0518 Blood Pressure 161/58 0431 Blood Pressure 150/56 0401 Blood Pressure 156/53 0336 BP, HR, EF%: Reviewed (HR 57) List meds needing interventions: Has order for lisinopril 20mg daily QTc Review QTc: Reviewed (430 from 02/14/25) IV to PO Switch IV Medications: Reviewed (heparin infusion) Home Meds Home Med List reviewed: Reviewed Relevent Home Meds Not ordered & why?: vitamin D3, cranberry and diphenhydramine (PRN) Current Meds Current Medication Order Review: Intervened Comments: Added IV admission order set Comments Comments/Follow Ups: waiting on bed at [facility]
[2025-02-14 14:23] LABS: PTT Activated 80.5 sec (20.6-30.2)
--- NOTE | 2025-02-14 17:12 | CHAPLAIN ---
Rosmery was in bed when I visited. Her Efrain was with her. She is waiting for a bed to open up at [facility] [place] be transferred there for a likely cardiac cath. Rosmery was very pleasant. She hasn't been allowed to eat anything for a while now, which was frustrating for her. I explained my role and offered support.
--- NOTE | 2025-02-14 17:48 | W.PM.DS.N ---
Date of service: 02/14/25 Time of Service: 17:49 DS: Diagnosis Discharge Diagnosis (1) ACS (acute coronary syndrome): Status: Acute Discharge Plan Disposition Patient Disposition: Transfer-Acute Inpatient Care Condition: Stable Discharge Details Reason For Visit: nSTEMI Admit Date/Time: 02/14/25 04:44 Admit Provider: Gio Razo Attending Provider: Gio Razo Primary Care Provider: Marino Schultz Hospital Course Hospital Course: This 74-year-old female patient with a PMHx significant for remote tobaco dependence, CDK, gastroesophageal reflux disease and hypertension presented to the ED around 01 AM for evaluation of ongoing epigastric pain radiating into her chest with a sensation of acid reflux it has been ongoing since about 3 PM, reporting diaphoresis and nausea. EKG showed SR HR 71 with no signs of acute coronary occlusion, troponin 95,84, 81,83, LDL 156 with cholesterol 229, triglycerides 71,A1C 6.0.No other actionable items seen in blood work. The patient was accepted s/p discussion with Dr. Day dining services manager [place] [facility] [place]. The patient received ASA, clopidogrel, high intensity statin and heparin drip ACS protocol, and was admitted to the medical surgical floor with telemetry for ACS evaluation and management pending transfer and kept NPO.. Discussed with Dr. Hawkins and Dr. Fox Home Meds and New Rx's Prescriptions: No Action cholecalciferol (vitamin D3) [Vitamin D3] 2,000 UNIT capsule 2,000 units PO DAILY diphenhydramine HCl 25 MG capsule 50 mg PO Q6H PRNQty: 20 0RF aspirin 81 mg Tablet 81 mg PO DAILY cranberry fruit 400 mg Capsule 400 mg PO DAILY pantoprazole 20 mg tablet,delayed release (DR/EC) 20 mg PO DAILY Patient Comments: TAKE ONE TABLET BY MOUTH EVERY DAY lisinopril 20 mg tablet 20 mg PO DAILY Patient Comments: TAKE ONE TABLET BY MOUTH EVERY DAY Discharge Instructions Activity:: Activity as Tolerated Equipment/Supplies:: No Equipment Needed Diet:: NPO DS: Summary Time Spent with Patient providing and/or coordinating discharge services: Greater than 30 minutes Status at Discharge Functional status at discharge: independent ambulation Overall status at discharge: patient is not back to baseline Mental Status: mental status grossly normal Speech and Movement: speech and movement normal Mood: congruent mood Affect: normal affect Quality:SDOH Health Related Social Needs: No Data to Display Exam Narrative Exam Narrative: Constitutional The patient is lying in bed comfortable without acute distress, no chest pain HENMT: Non-icteric sclera. Facial structures with normal appearance Eyes: Well aligned, intact ROM Neuro:alert and oriented to self, person, place time and situation. No neurological focal deficit Resp: Normal respiratory pattern, speaks in full sentences, unlabored breathing, clear lung bilaterally Cardio:Telemetry- SR HR -60 regular rhythm, S1, S2, no murmur, capillary refill<3 sec., bilateral radial and dorsalis pedis pulses are positive GI: Abdomen is not distended, soft and non tender, bowel sounds are present : Negative Costovertebral angle tenderness, no bladder distension Back/spine/Pelvis: No back tenderness, normal alignment Integumentary: No skin lesions or rash except for minimal bruising at blood draws sites Extremities: strength 5/5 to bilateral lower and upper extremities Psych: RASS 0, congruent mood and normal affect. Psych Mental Status: mental status grossly normal Speech and Movement: speech and movement normal Mood: congruent mood Affect: normal affect DS: Data Vitals/I&O Vitals and I&O: Vital Signs Temperature 36.6 C 02/14/25 15:27 Temperature Source Temporal Artery Scan 02/14/25 15:27 Pulse 62 02/14/25 15:27 Pulse Rhythm Regular 02/14/25 05:25 Pulse 63 02/14/25 04:40 Respiratory Rate 18 02/14/25 15:27 Respiratory Effort Normal, Non-Labored 02/14/25 05:25 Respiratory Depth Normal 02/14/25 05:25 Respiratory Pattern Normal 02/14/25 05:25 Blood Pressure 143/57 H 02/14/25 15:27 Blood Pressure Mean 95 02/14/25 04:31 Pulse Oximetry 96 02/14/25 15:27 Oxygen Delivery Method Room Air 02/14/25 15:27 Oxygen Flow Rate 0 02/14/25 15:27 Pain Level 0 02/14/25 15:27 Comment Notifying RN 02/14/25 15:27 Intake & Output 02/13/25 02/14/25 02/14/25 23:59 11:59 23:59 Intake Total 176.000 / 203.467 27.467 / 203.467 Balance 176.000 / 203.467 27.467 / 203.467 Weight 63.503 kg Intake: IV 176.000 / 203.467 27.467 / 203.467 Other: Comment pt voided independently in toilet Data Completed and Pending Labs on day of discharge: Labs from last 24 hours 02/14/25 02/14/25 02/14/25 19:20 13:27 09:50 WBC RBC Hgb Hct MCV MCH MCHC RDW Plt Count MPV Immature Gran % Neutrophils % Lymphocytes % Monocytes % Eosinophils % Basophils % Nucleated RBC % Absolute Neutrophils Absolute Lymphocytes Absolute Monocytes Absolute Eosinophils Absolute Basophils APTT Pending 80.5 H* Sodium Potassium Chloride Carbon Dioxide Anion Gap BUN Creatinine Est GFR (CKD-EPI 2020) Glucose Hemoglobin A1c Calcium Magnesium Total Bilirubin AST ALT Alkaline Phosphatase Troponin I 83 H* Total Protein Albumin Triglycerides Total Cholesterol LDL Cholesterol, Calc HDL Cholesterol Lipase TSH 02/14/25 02/14/25 02/14/25 08:35 07:22 03:55 WBC 10.31 RBC 4.18 Hgb 12.9 Hct 39.5 MCV 95 MCH 30.9 MCHC 32.7 RDW 13.4 Plt Count 217 MPV 10.0 Immature Gran % Neutrophils % Lymphocytes % Monocytes % Eosinophils % Basophils % Nucleated RBC % Absolute Neutrophils Absolute Lymphocytes Absolute Monocytes Absolute Eosinophils Absolute Basophils APTT 120.3 H* Sodium 140 Potassium 4.4 Chloride 103 Carbon Dioxide 27.5 Anion Gap 9.5 BUN 30 H Creatinine 1.5 H Est GFR (CKD-EPI 2020) 36.34 Glucose 107 H Hemoglobin A1c 6.0 H Calcium 9.5 Magnesium 2.2 Total Bilirubin AST ALT Alkaline Phosphatase Troponin I 81 H* Total Protein Albumin Triglycerides 71 Total Cholesterol 229 H LDL Cholesterol, Calc 156 H HDL Cholesterol 59 H Lipase TSH 2.55 02/14/25 02/14/25 01:40 00:45 WBC 12.47 H RBC 4.77 Hgb 14.7 Hct 44.8 MCV 94 MCH 30.8 MCHC 32.8 RDW 13.4 Plt Count 248 MPV 9.9 Immature Gran % 0.4 Neutrophils % 72.8 Lymphocytes % 18.5 Monocytes % 5.7 Eosinophils % 2.0 Basophils % 0.6 Nucleated RBC % 0.0 Absolute Neutrophils 9.08 H Absolute Lymphocytes 2.31 Absolute Monocytes 0.71 Absolute Eosinophils 0.25 Absolute Basophils 0.07 APTT 23.4 Sodium 139 Potassium 3.8 Chloride 104 Carbon Dioxide 27.9 Anion Gap 7.1 BUN 31 H Creatinine 1.5 H Est GFR (CKD-EPI 2020) 36.34 Glucose 126 H Hemoglobin A1c Calcium 10.2 H Magnesium Total Bilirubin 0.5 AST 19 ALT 21 Alkaline Phosphatase 80 Troponin I 84 H* 94 H* Total Protein 8.2 Albumin 4.1 Triglycerides Total Cholesterol LDL Cholesterol, Calc HDL Cholesterol Lipase 40 TSH PFSH All Active Problems (Updated 02/14/25 @ 03:28 by Yuval Ziegler MD) ACS (acute coronary syndrome) (Acute) Urge incontinence (Acute) Medical History (Updated 02/14/25 @ 03:28 by Yuval Ziegler MD) Hypertension Surgical History (Updated 02/14/25 @ 06:36 by Gio Razo MD) History of cholecystectomy Trigger Finger release BILAT THUMBS, RMF, RRF, RLF Tonsillectomy section X2 Abdominal hysterectomy Appendectomy Family History (Updated 02/14/25 @ 06:37 by Gio Razo MD) Other Heart disease Social History Smoking/Tobacco Use Status: Former Tobacco Use Smoking risk assessment performed?: Yes Alcohol Intake: current Alcohol Intake frequency: holidays/special occasions only Drug use: Never Housing: house Do you feel safe at home: Yes Do you feel safe in your relationship?: Yes Time Spent with Patient Time Spent with Patient: 70-84 minutes4 Time was spent: preparing to see the patient(eg.review tests), obtaining and/or reviewing separately otained hiistory, ordering medications,tests, procedures, referring, communicating with other health rn progressive care, indepentently interpreting results, counseling the patient and care coordination
--- NOTE | 2025-02-14 18:26 | NUR.NOTE ---
Nursing Note: Rn Spoke with Delisa RN at [facility] bed placement confirmed bed, pt to go to [id number], Nurse to nurse report to be given to [phone]
[2025-02-14 18:30] LABS: Troponin I 81 ng/L (<or=51)
[2025-02-14 20:11] LABS: PTT Activated 96.2 sec (20.6-30.2)
== END 2025-02-14 21:06 | disposition short-term general hospital (02) | DRG 282 ==
LOC: ER 05:23 → MS 05:25
PROVIDERS: Admitting Provider Internal Medicine; Emergency Provider Emergency Medicine Emergency Medical Services; PCP Physician Assistant; Responsible Provider Nurse Practitioner Acute Care; Visit Provider Internal Medicine
DX: I21.4 Non-ST elevation (NSTEMI) myocardial infarction (principal); I10 Essential (primary) hypertension; K21.9 Gastro-esophageal reflux disease without esophagitis; N39.41 Urge incontinence; Z87.891 Personal history of nicotine dependence; Z79.899 Other long term (current) drug therapy
CPT/HCPCS: 00123; 36415; 80048; 80053; 80061; 83690; 85027; 93005; 96365; 96366; 96367; 96375; 99285; 71045; 83036; 83735; 84443; 84484; 85025; 85730; 93010; 99236; J0131; J1644; J2470

== ENCOUNTER 2025-05-14 14:05 | Outpatient (REF) | payer MEDICARE, SELFPAY ==
[2025-05-14 16:13] LABS: HCT 40.1 % (36.0-46.0); HGB 13.1 g/dL (11.2-15.7); MCH 30.5 pg (27.0-33.0); MCHC 32.7 % (32.0-36.0); MCV 93 fL (80-95); MPV 10.1 fL (8.0-11.0); Platelet Count 268 10^3/uL (130-400); RBC 4.30 10^6/uL (3.93-5.22); RDW 13.6 % (11.7-14.6); RDW-SD 46.5 fL; WBC 7.04 10^3/uL (4.4-10.8)
[2025-05-14 16:40] LABS: ALT 23 U/L (14-59); AST 23 U/L (15-37); Albumin 4.0 g/dL (3.4-5.0); Alkaline Phosphatase 77 U/L (46-116); Anion Gap 8.0 mmol/L (3-11); BUN 19 mg/dL (7-18); Bilirubin, Total 0.5 mg/dL (0.2-1.0); CO2 28.0 mmol/L (21.0-32.0); Calcium 9.6 mg/dL (8.5-10.1); Calculated LDL 163 mg/dL (<100); Chloride 106 mmol/L (98-107); Cholesterol 249 mg/dL (<200); Estimated GFR 52.40 (mL/min/1.73m2); Glucose 100 mg/dL (74-106); HDL Cholesterol 65 mg/dL (>or=50); Potassium 4.4 mmol/L (3.5-5.1); Sodium 142 mmol/L (136-145); Total Protein 7.8 g/dL (6.4-8.2); Triglyceride 109 mg/dL (<150)
[2025-05-14 16:42] LABS: Hemoglobin A1C 5.8 % (<5.7)
== END 2025-05-14 14:06 | disposition home or self-care (01) ==
LOC: NCHCN 14:05
PROVIDERS: PCP Physician Assistant; Visit Provider Physician Assistant
DX: E78.5 Hyperlipidemia, unspecified (principal); R73.03 Prediabetes; K22.70 Barrett's esophagus without dysplasia
CPT/HCPCS: 80053; 80061; 85027; 83036